=== PATIENT | male | born 1980 | race Asian ===

== ENCOUNTER 2016-04-10 09:06 | Emergency (ER) | payer OTHER ==
[~2016-04-10] VITALS: Ht 168.9 cm; Wt 71.6 kg
[~2016-04-10 09:06] MED LIST: ALBU1AER9 INH; LORA-741 PO
[2016-04-10 09:11] VITALS: BP 135/85; PULSE 97; TEMP 36.9; O2SAT 97; Ht 168.9 cm; Wt 71.6 kg
[2016-04-10] MEDS ORDERED: CIPROFLOXACIN HCL 0.3% OP SOLN 2.5 ML BTL OP STA (09:31)
--- NOTE | 2016-04-10 09:43 | EMERGENCY ROOM VISIT NOTE ---
History Report prepared by Robinsonibe: Renetta Tsyon Under the Supervision of: Dr. Roman Agudelo D.O. First contact with patient: 09:16 Chief Complaint: EYE PAIN Stated Complaint: L EYE SWELLING History of Present Illness The patient is a 35 year old male who presents to the Emergency Room with complaints of persistent left eyelid edema for the past few days. He denies any fevers, chills, erythema or changes in vision. He reports the eye is not painful , but this morning he woke up with matting of the eyelashes and a reddened bump on the lower eye lid, so he decided to come to the ED to be seen. He notes he has experienced similar edema in an upper eyelid about 1 year ago, but states the symptoms resolved on their own. Source of History: patient Onset: past few days Position: eye (left) Timing: other (persistent) Associated Symptoms: No chills, No fevers Review of Systems See HPI for pertinent positives & negatives. A limited number of systems were reviewed and were otherwise negative. Past Medical & Surgical Medical Problems: (1) No known problems Family History Diabetes mellitus Hypertension Social History Smoking Status: Never Smoker Alcohol Use: occasionally Drug Use: none Marital Status: single Housing Status: lives alone Occupation Status: employed Current/Historical Medications Scheduled Fluticasone Propionate (Nasal) (Flonase Allergy Relief), 2 SPRAY SCAR DAILY Multivitamin (Multivitamin), 1 TAB PO DAILY Vitamins C & E (Vitamin C), 1 CAP PO DAILY Scheduled PRN Albuterol Hfa (Ventolin Hfa), 2 PUFFS INH Q6H PRN for SOB/Wheezing Lorazepam (Ativan), 0.5 MG PO DAILY PRN for Anxiety Allergies Coded Allergies: Ibuprofen (Verified Allergy, Unknown, Hives, 04/10/16) Physical Exam Vital Signs Date Time Temp Pulse Resp B/P Pulse Ox O2 Delivery O2 Flow Rate FiO2 04/10/16 09:11 36.9 97 18 135/85 97 Room Air Physical Exam CONSTITUTIONAL/VITAL SIGNS: Reviewed / noted above. GENERAL: Non-toxic in appearance. INTEGUMENTARY: Warm, dry, and [place]. HEAD: Normocephalic. EYES: Left lower eyelid reveals a small pustule, on the inner lateral side of the lid, on mucosal surface. No obvious foreign bodies noted. ENT/OROPHARYNX: clear and moist. LYMPHADENOPATHY/NECK: Is supple without lymphadenopathy or meningismus. CARDIOVASCULAR: Regular rate and rhythm.. EXTREMITIES: Warm and well perfused. NEUROLOGICAL: Intact without focal deficits. PSYCHIATRIC: normal affect. MUSCULOSKELETAL: Normally developed with good muscle tone. Medical Decision & Procedures Medications Administered Medications (Trade) Dose Ordered Sig/Pratibha Route Start Time Stop Time Status Last Admin Dose Admin Ciprofloxacin HCl (Ciprofloxacin 0.3% Op Soln) 1 drops NOW STAT OP 04/10/16 09:31 04/10/16 09:34 DC 04/10/16 09:31 1 DROPS ED Course 0917: Previous medical records were reviewed. The patient was evaluated in room A4. A complete history and physical examination was performed. 0920: A small 27 gauge needle was used to puncture the pustule and purulent drainage was expressed onto a culture Q-Tip. Culture was sent for analysis. 0931: Ciprofloxacin HCl 1 drop OP. 0940: I reevaluated the patient. He is feeling well and resting comfortably. I discussed his results and discharge instructions and he verbalized complete understanding and agreement. Medical Decision Differential includes hordeolum, chalazion, foreign body, conjunctivitis. Physical 35-year-old male who presents to the ED with a chief complaint of a small amount of matting of the left eye this morning as well as noticing a pustule in the left inner surface of the lower lid. The patient denies any other significant symptoms. A 27-gauge needle was used to puncture the area and pus was drained from the area. This was sent for culture. The patient was started on Cipro ophthalmic. He is felt to be stable for discharge and outpatient follow-up if necessary. Impression Primary Impression: Hordeolum eyelid, internal Scribe Attestation The scribe's documentation has been prepared under my direction and personally reviewed by me in its entirety. I confirm that the note above accurately reflects all work, treatment, procedures, and medical decision making performed by me. Departure Information Dispostion Home / Self-Care Referrals Migue Moody M.D. (PCP) Patient Instructions ED Hordeolum, [facility] Additional Instructions Your symptoms are consistent with a internal hordeolum. Culture has been sent of the drainage. Cipro ophthalmic drops: Used to drops every 2-4 hours while awake. Ophthalmology follow-up with symptoms persist beyond 3-4 days.
[2016-04-10] MEDS ORDERED: VITACAP26 PO (09:50)
[2016-04-10] MEDS ORDERED: VNTHFA/IN INH (09:50)
[2016-04-10] MEDS ORDERED: FLUT0.15 NAE (09:50)
[2016-04-10] MEDS ORDERED: MULT-506 PO (09:50)
[2016-04-25] MEDS ORDERED: VNCS125 PO (10:58)
[2016-04-25] MEDS ORDERED: LCTX PO (10:58)
== END 2016-04-10 09:48 | disposition home or self-care (01) ==
LOC: C.EDB 09:07 → C.EDA 09:48
DX: H00.025 Hordeolum internum left lower eyelid (principal); Z83.3 Family history of diabetes mellitus; Z82.49 Family history of ischemic heart disease and other diseases of the circulatory system

== ENCOUNTER 2016-04-22 20:06 | Inpatient (IN) | payer OTHER ==
[~2016-04-22] VITALS: Ht 167.6 cm; Wt 73.5 kg
[~2016-04-22 20:06] MED LIST changes: -ALBU1AER9 INH; +FLUT0.15 NAE; +MULT-506 PO; +VITACAP26 PO; +VNTHFA/IN INH
[2016-04-22] MEDS ORDERED: SODIUM CHLORIDE 0.9% 1000ML 2,000 ML IV STA (20:23)
[2016-04-22] MEDS ORDERED: ONDANSETRON INJ 2 MG/ML 2 ML VIAL IV STA (20:23)
--- NOTE | 2016-04-22 20:36 | EMERGENCY ROOM VISIT NOTE ---
History Report prepared by Robinsonibmarie: Renetta Tyson Under the Supervision of: Dr. Elysia Arguello M.D. First contact with patient: 20:18 Chief Complaint: DIARRHEA Stated Complaint: DIAREHEA,NAUSEA,WEAKNESS History of Present Illness The patient is a 35 year old male who presents to the Emergency Room with complaints of persistent diarrhea since this morning. He states he has had "13 episodes" of diarrhea since this morning. He denies any melena, hematochezia or rectal bleeding. He has been nauseous but has not vomited. He complains of some abdominal pain, but thinks it's from his nausea. 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 He denies any dysuria or hematuria but states he has been urinating less frequently than usual and has only eaten a banana today. Source of History: patient Onset: this morning Position: abdomen Timing: other (persistent) Associated Symptoms: + abdominal pain, + nausea, No hematochezia, No melena , No urinary symptoms, No vomiting Review of Systems See HPI for pertinent positives & negatives. A total of 10 systems reviewed and were otherwise negative. Past Medical & Surgical Medical Problems: (1) Asthma, mild intermittent Family History Diabetes mellitus Hypertension Social History Smoking Status: Never Smoker Alcohol Use: occasionally Drug Use: none Marital Status: single Housing Status: lives alone Occupation Status: employed Current/Historical Medications Scheduled Fluticasone Propionate (Nasal) (Flonase Allergy Relief), 2 SPRAY SCAR DAILY Metronidazole (Flagyl), 500 MG PO TID Multivitamin (Multivitamin), 1 TAB PO DAILY Vitamins C & E (Vitamin C), 1 CAP PO DAILY Scheduled PRN Albuterol Hfa (Ventolin Hfa), 2 PUFFS INH Q6H PRN for SOB/Wheezing Lorazepam (Ativan), 0.5 MG PO DAILY PRN for Anxiety Allergies Coded Allergies: Ibuprofen (Verified Allergy, Unknown, Hives, 04/22/16) Physical Exam Vital Signs Date Time Temp Pulse Resp B/P Pulse Ox O2 Delivery O2 Flow Rate FiO2 04/23/16 00:20 106 18 134/79 95 Room Air 04/22/16 23:18 118 18 92/68 96 Room Air 04/22/16 21:18 109 18 127/76 99 Room Air 04/22/16 20:11 37.2 117 20 99 Room Air Physical Exam Vital signs reviewed. General: Well-appearing 35 year old male, in no significant distress. HEENT: No scleral icterus, PERRLA, neck supple. Atraumatic. Cardiovascular: Regular rate and rhythm, no extra sounds. Pulmonary: Clear to auscultation bilaterally, normal work of breathing. Abdomen: Soft, mild diffuse tenderness, no rebound or guarding, nondistended, positive bowel sounds. Musculoskeletal: Atraumatic, no peripheral edema. Neurologic: Patient awake alert and oriented x 3, full strength in all 4 extremities. Cranial nerves 2 through 12 grossly intact. Skin: Warm, dry, no rash Medical Decision & Procedures Laboratory Results Test 04/22/16 20:45 04/22/16 22:02 04/23/16 00:17 Total Bilirubin 0.7 mg/dl (0.2-1) Direct Bilirubin 0.2 mg/dl (0-0.2) Aspartate Amino Transf (AST/SGOT) 19 U/L (15-37) Alanine Aminotransferase (ALT/SGPT) 47 U/L (12-78) Alkaline Phosphatase 62 U/L (45-117) Total Protein 8.3 gm/dl (6.4-8.2) Lipase 99 U/L (73-393) Urine Color YELLOW Urine Appearance CLOUDY (CLEAR) Urine pH 5.0 (4.5-7.5) Urine Specific [place] 1.007 (1.000-1.030) Urine Protein NEG (NEG) Urine Glucose (UA) NEG (NEG) Urine Ketones NEG (NEG) Urine Occult Blood NEG (NEG) Urine Nitrite NEG (NEG) Urine Bilirubin NEG (NEG) Urine Urobilinogen NEG (NEG) Urine Leukocyte Esterase NEG (NEG) Urine WBC (Auto) 0 /hpf (0-5) Urine RBC (Auto) 0-4 /hpf (0-4) Urine Hyaline Casts (Auto) 0 /lpf (0-5) Urine Epithelial Cells (Auto) 0-5 /lpf (0-5) Urine Bacteria (Auto) NEG (NEG) Stool Occult Blood NEGATIVE (NEGATIVE) Troponin I < 0.015 ng/ml (0-0.045) Thyroid Stimulating Hormone (TSH) 0.253 uIu/ml (0.300-4.500) Free Thyroxine 0.97 ng/dl (0.80-1.60) Laboratory results per my review. Medications Administered Medications (Trade) Dose Ordered Sig/Pratibha Route Start Time Stop Time Status Last Admin Dose Admin Sodium Chloride (Nss 1000ml) 2,000 ml @ 999 mls/hr Q2H1M STAT IV 04/22/16 20:23 04/22/16 22:23 DC 04/22/16 20:47 999 MLS/HR Ondansetron HCl (Zofran Inj) 4 mg NOW STAT IV 04/22/16 20:23 04/22/16 20:26 DC 04/22/16 20:47 4 MG Metronidazole 500 mg 500 mg NOW STAT PO 04/22/16 23:14 04/22/16 23:15 DC 04/22/16 23:46 500 MG Sodium Chloride 1,000 ml @ 999 mls/hr Q1H1M STAT IV 04/22/16 23:38 04/23/16 00:38 DC 04/22/16 23:47 999 MLS/HR Calcium Gluconate/ Sodium Chloride (Calcium Gluconate 10%/Nss 50ml) 60 ml @ 240 mls/hr NOW STAT IV 04/22/16 23:41 04/22/16 23:55 DC 04/22/16 23:56 240 MLS/HR ED Course 2022: Past medical records reviewed. The patient was evaluated in room B12. A complete history and physical examination was performed. 2022: Zofran 4 mg IV, NSS 2000 ml @ 999 mls/hr IV. 0: I reevaluated the patient. He would like to wait for the results of his c- diff test. Medical Decision Differential diagnosis: Etiologies such as gastroenteritis, food borne illness, infections, appendicitis , diverticulitis, inflammatory bowel disease, obstruction, GI bleed, biliary pathology, as well as others were entertained. This patient was evaluated and appeared to be in some discomfort. IV access was obtained and laboratory work was drawn. The patient was placed on the computing services director and found to be in a normal sinus rhythm. The patient did have some hypotension. He was hydrated with normal saline solution. Stool sample was obtained and is significant for a positive C. difficile toxin. Patient was given Flagyl 500 mg orally. Patient's laboratory work is otherwise fairly unrevealing. On reevaluation, the patient was noted not feeling much improved. He will be evaluated by the hospitalist service for further management. He is aware of the plan and agrees. Impression Primary Impression: C. difficile diarrhea Scribe Attestation The scribe's documentation has been prepared under my direction and personally reviewed by me in its entirety. I confirm that the note above accurately reflects all work, treatment, procedures, and medical decision making performed by me. Departure Information Prescriptions Metronidazole (Flagyl) 500 Mg Tab 500 MG PO TID for 14 Days, #42 TAB Prov: Elysia Arguello M.D. 04/22/16 Referrals Migue Moody M.D. (PCP) Patient Instructions [facility]
[2016-04-22 21:07] LABS: COMPLETE YES; EOS % 0.3 %; HEMATOCRIT 42.4 % (42-52); IG% 0.3 %; LYMPH % 3.4 %; MEAN CELL VOLUME 87.6 fL (80-100); MEAN CORPUSCULAR HEMOGLOBIN 30.2 pg (25-34); MEAN CORPUSCULAR HGB CONC 34.4 g/dl (32-36); MEAN PLATELET VOLUME 9.9 fL (7.4-10.4); MONO % 4.5 %; NEUT % 91.5 %; PLATELET COUNT 213 K/uL (130-400); RED BLOOD COUNT 4.84 M/uL (4.7-6.1); WHITE BLOOD COUNT 11.63 K/uL (4.8-10.8)
[2016-04-22 21:24] LABS: BUN/CREATININE RATIO 14.4 (10-20); CALCIUM 8.4 mg/dl (8.5-10.1); CREATININE 0.93 mg/dl (0.60-1.40)
[2016-04-22 22:26] LABS: MANUAL MICROSCOPIC REQUIRED? NO; REVIEW REQ? NO; URINE COLOR YELLOW; ZZUR CULT IF INDIC CLEAN CATCH NO
[2016-04-22 22:27] LABS: URINE APPEARANCE CLOUDY (CLEAR); URINE BILIRUBIN NEG (NEG); URINE EPITHELIAL CELL AUTO 0-5 /lpf (0-5); URINE NITRITE NEG (NEG); URINE SPECIFIC GRAVITY 1.007 (1.000-1.030); UROBILINOGEN NEG (NEG)
[2016-04-22] MEDS ORDERED: METRONIDAZOLE 250 MG TAB PO STA ×2 (23:14→23:18)
[2016-04-22] MEDS ORDERED: METR-163 PO (23:17)
[2016-04-22] MEDS ORDERED: SODIUM CHLORIDE 0.9% 1000ML 1,000 ML IV STA (23:38)
[2016-04-22] MEDS ORDERED: CALCIUM GLUCONATE 10% 1,000 MG in SODIUM CHLORIDE 0.9% 50ML 50 ML IV STA (23:41)
[2016-04-23] MEDS ORDERED: ONDANSETRON INJ 2 MG/ML 2 ML VIAL IV PRN ×2 (00:15→01:00)
[2016-04-23] MEDS ORDERED: PROMETHAZINE HCL INJ 12.5 MG in SODIUM CHLORIDE 0.9% 50ML 50 ML IV PRN ×2 (00:15→01:00)
[2016-04-23] MEDS ORDERED: SODIUM CHLORIDE 0.9% 1000ML 1,000 ML IV SCH (00:45)
[2016-04-23 00:53] LABS: MAGNESIUM 1.4 mg/dl (1.8-2.4); THYROID STIMULATING HORMONE 0.253 uIu/ml (0.300-4.500)
[2016-04-23] MEDS ORDERED: SODIUM CHLORIDE 0.9% 1000ML 1,000 ML IV STA (00:58)
[2016-04-23] MEDS ORDERED: TRAMADOL HCL 50 MG TAB PO PRN (01:00)
[2016-04-23] MEDS ORDERED: LORAZEPAM 0.5 MG TAB PO PRN (01:00)
[2016-04-23] MEDS ORDERED: HYDROmorphone INJ 1 MG/ML SYR IV PRN (01:00)
[2016-04-23] MEDS ORDERED: ACETAMINOPHEN 325 MG TAB PO PRN (01:00)
[2016-04-23] MEDS ORDERED: LORAZEPAM 2 MG/ML 1 ML VIAL IV PRN (01:00)
[2016-04-23 01:40] VITALS: BP 119/75; PULSE 82; TEMP 37.5; O2SAT 99
[2016-04-23] MEDS ORDERED: LORAZEPAM INJ 0.5 MG in SYRINGE 0.75 ML IV PRN (02:15)
[2016-04-23] MEDS: SODIUM CHLORIDE 0.9% 1000ML 1,000 ML IV SCH ×2 (02:33→06:00)
[2016-04-23 02:48] VITALS: BP 119/75; PULSE 82; TEMP 37.5; O2SAT 99; Ht 167.6 cm; Wt 73.5 kg
[2016-04-23] MEDS: RASPBERRY SYRUP 5 ML UDP PO SCH ×4 (03:03→19:50)
[2016-04-23] MEDS: VANCOMYCIN HCL 125 MG/2.5ML SOLN PO SCH ×4 (03:03→19:50)
[2016-04-23] MEDS: MAGNESIUM SULFATE 1GM / D5W 1 GM in PREMIXED IN D5W 100 ML IV SCH ×2 (03:03→04:10)
--- NOTE | 2016-04-23 04:36 | HISTORY & PHYSICAL EXAMINATION ---
DATE OF ADMISSION: 04/23/2016 PRIMARY CARE PHYSICIAN: Dr. Moody CHIEF COMPLAINT: Diarrhea. HISTORY OF PRESENT ILLNESS: Medical history significant for asthma, hypertriglyceridemia as per records. One day history of crampy abdominal discomfort followed by watery non-bloody diarrhea more than 10 times, some nausea; no emesis, no fever, no chills. No recent antibiotics. Px admits to being lightheaded and clammy. Patient works at the hospital. Patient seen at the Emergency Room. T Given Flagyl for positive stool C. dif. MEDICAL HISTORY: As above. SURGERIES: None. HOME MEDICATIONS: Include albuterol, Ativan p.r.n., Flonase, multivitamins. ALLERGIES: IBUPROFEN. FAMILY HISTORY: Diabetes. 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 REVIEW OF SYSTEMS: As per HPI. all other ROS negative PHYSICAL EXAMINATION: VITAL SIGNS: Blood pressure was noted to be initially 157/76, later SBP 90s pulse rate 110 RR 18, temperature 37 O2 sats 99% on room air. GENERAL: Noted to be slightly uncomfortable, not in distress. SKIN: Normal color. HEENT: Bronson palpebral conjunctivae. Dry mucosa. NECK: Supple. CHEST: Clear to auscultation. HEART: Tachycardic. ABDOMEN: No tenderness, some distention. EXTREMITIES: No edema. no tenderness NEUROLOGIC: No gross focality. LABS: Hemoglobin 14.6, hematocrit 42.4, white cells 11.6, platelets 213. Sodium 130, potassium 4, chloride 100, CO2 21, anion gap was 14, BUN 30, creatinine 0.9, glucose 101. Lactic acid was 2.9. ASSESSMENT: 1. Clostridium difficile diarrhea severe on the basis of transient hypotension and lactic acidosis BP responsive to IV fluids 2. asthma, well controlled. PLAN: GMF PO Vancomycin course appropriate for severe C. dif IV fluids. Follow lactic acid. DVT prophylaxis, SCDs. Full code. MTDD
[2016-04-23 06:03] LABS: BASO % 0.1 %; BASO ABS # 0.01 K/uL (0-0.2); COMPLETE YES; EOS % 0.9 %; HEMATOCRIT 38.4 % (42-52); IG% 0.4 %; LYMPH % 9.1 %; LYMPH ABS # 0.72 K/uL (1.2-3.4); MEAN CELL VOLUME 87.9 fL (80-100); MEAN CORPUSCULAR HGB CONC 34.1 g/dl (32-36); MEAN PLATELET VOLUME 9.7 fL (7.4-10.4); MONO % 9.3 %; NEUT % 80.2 %; PLATELET COUNT 217 K/uL (130-400); RED BLOOD COUNT 4.37 M/uL (4.7-6.1); WHITE BLOOD COUNT 7.88 K/uL (4.8-10.8)
[2016-04-23 06:50] LABS: BUN/CREATININE RATIO 8.9 (10-20); CALCIUM 7.6 mg/dl (8.5-10.1); CREATININE 0.8 mg/dl (0.60-1.40); MAGNESIUM 2.6 mg/dl (1.8-2.4); POTASSIUM 3.8 mmol/L (3.5-5.1)
[2016-04-23] MEDS ORDERED: SODIUM CHLOR 0.45% + 20MEQ KCL 1,000 ML IV ONE (07:00)
[2016-04-23 07:18] VITALS: BP 103/68; PULSE 82; TEMP 36.9; O2SAT 97
[2016-04-23] MEDS ORDERED: SODIUM CHLORIDE 0.65% NA SOLN 45 ML (OCEAN) PRN (08:00)
[2016-04-23] MEDS ORDERED: METRONIDAZOLE 500 MG TAB PO SCH (08:00)
[2016-04-23] MEDS: FLUTICASONE PROPIONATE NA SPR 16 GM BTL NAE SCH (08:27)
[2016-04-23] MEDS: MULTIVITAMIN TAB PO SCH (08:28)
[2016-04-23] MEDS ORDERED: CALCIUM GLUCONATE 10% 1,000 MG in SODIUM CHLORIDE 0.9% 50ML 50 ML IV ONE (08:30)
[2016-04-23 15:48] VITALS: BP 108/74; PULSE 77; TEMP 36.7; O2SAT 97
[2016-04-23] MEDS: LACTOBACILLUS ACIDOPHILUS (FLORANEX) TAB PO SCH (17:49)
--- NOTE | 2016-04-23 19:32 | Progress Note ---
Internal Med Progress Note Date of Service: Apr 23, 2016. Provider Documentation: Diarrhea almost resolved.No abdominal pain or nausea. Afebrile. No sob.Tolerating clears. Advancing diet as tolerated.Continue po vancomycin. added Probiotic.Follow labs in am. Vital Signs: Date Time Temp Pulse Resp B/P Pulse Ox O2 Delivery O2 Flow Rate FiO2 04/23/16 17:41 Room Air 04/23/16 15:48 36.7 77 20 108/74 97 04/23/16 09:30 Room Air 04/23/16 07:18 36.9 82 18 103/68 97 Room Air 04/23/16 02:48 37.5 82 18 119/75 99 Room Air 04/23/16 01:40 37.5 82 18 119/75 99 Room Air 04/23/16 01:20 96 18 117/68 96 04/23/16 00:20 106 18 134/79 95 Room Air 04/22/16 23:18 118 18 92/68 96 Room Air 04/22/16 21:18 109 18 127/76 99 Room Air 04/22/16 20:11 37.2 117 20 99 Room Air Lab Results: Results Past 24 Hours Test 04/22/16 20:45 04/22/16 20:59 04/22/16 22:02 04/23/16 00:17 Range/Units Sodium Level 135 136-145 mmol/L Potassium Level 4.0 3.5-5.1 mmol/L Chloride Level 100 98-107 mmol/L Carbon Dioxide Level 21 21-32 mmol/L Anion Gap 14.0 3-11 mmol/L Blood Urea Nitrogen 13 7-18 mg/dl Creatinine 0.93 0.60-1.40 mg/dl Est Creatinine Clear Calc Drug Dose 100.0 ml/min Estimated GFR () 122.8 Estimated GFR (Non- 106.0 BUN/Creatinine Ratio 14.4 10-20 Random Glucose 101 70-99 mg/dl Calcium Level 8.4 8.5-10.1 mg/dl Total Bilirubin 0.7 0.2-1 mg/dl Direct Bilirubin 0.2 0-0.2 mg/dl Aspartate Amino Transf (AST/SGOT) 19 15-37 U/L Alanine Aminotransferase (ALT/SGPT) 47 12-78 U/L Alkaline Phosphatase 62 45-117 U/L Total Protein 8.3 6.4-8.2 gm/dl Albumin 4.4 3.4-5.0 gm/dl Lipase 99 73-393 U/L White Blood Count 11.63 4.8-10.8 K/uL Red Blood Count 4.84 4.7-6.1 M/uL Hemoglobin 14.6 14.0-18.0 g/dL Hematocrit 42.4 42-52 % Mean Corpuscular Volume 87.6 80-100 fL Mean Corpuscular Hemoglobin 30.2 25-34 pg Mean Corpuscular Hemoglobin Concent 34.4 32-36 g/dl Platelet Count 213 130-400 K/uL Mean Platelet Volume 9.9 7.4-10.4 fL Neutrophils (%) (Auto) 91.5 % Lymphocytes (%) (Auto) 3.4 % Monocytes (%) (Auto) 4.5 % Eosinophils (%) (Auto) 0.3 % Basophils (%) (Auto) 0.0 % Neutrophils # (Auto) 10.64 1.4-6.5 K/uL Lymphocytes # (Auto) 0.40 1.2-3.4 K/uL Monocytes # (Auto) 0.52 0.11-0.59 K/uL Eosinophils # (Auto) 0.04 0-0.5 K/uL Basophils # (Auto) 0.00 0-0.2 K/uL RDW Standard Deviation 41.8 36.4-46.3 fL RDW Coefficient of Variation 13.0 11.5-14.5 % Immature Granulocyte % (Auto) 0.3 % Immature Granulocyte # (Auto) 0.03 0.00-0.02 K/uL Urine Color YELLOW Urine Appearance CLOUDY CLEAR Urine pH 5.0 4.5-7.5 Urine Specific [place] 1.007 1.000-1.030 Urine Protein NEG NEG Urine Glucose (UA) NEG NEG Urine Ketones NEG NEG Urine Occult Blood NEG NEG Urine Nitrite NEG NEG Urine Bilirubin NEG NEG Urine Urobilinogen NEG NEG Urine Leukocyte Esterase NEG NEG Urine WBC (Auto) 0 0-5 /hpf Urine RBC (Auto) 0-4 0-4 /hpf Urine Hyaline Casts (Auto) 0 0-5 /lpf Urine Epithelial Cells (Auto) 0-5 0-5 /lpf Urine Bacteria (Auto) NEG NEG Stool Occult Blood NEGATIVE NEGATIVE Lactic Acid Level 2.9 0.4-2.0 mmol/L Magnesium Level 1.4 1.8-2.4 mg/dl Troponin I < 0.015 0-0.045 ng/ml Thyroid Stimulating Hormone (TSH) 0.253 0.300-4.500 uIu/ml Free Thyroxine 0.97 0.80-1.60 ng/dl Test 04/23/16 05:41 Range/Units White Blood Count 7.88 4.8-10.8 K/uL Red Blood Count 4.37 4.7-6.1 M/uL Hemoglobin 13.1 14.0-18.0 g/dL Hematocrit 38.4 42-52 % Mean Corpuscular Volume 87.9 80-100 fL Mean Corpuscular Hemoglobin 30.0 25-34 pg Mean Corpuscular Hemoglobin Concent 34.1 32-36 g/dl Platelet Count 217 130-400 K/uL Mean Platelet Volume 9.7 7.4-10.4 fL Neutrophils (%) (Auto) 80.2 % Lymphocytes (%) (Auto) 9.1 % Monocytes (%) (Auto) 9.3 % Eosinophils (%) (Auto) 0.9 % Basophils (%) (Auto) 0.1 % Neutrophils # (Auto) 6.32 1.4-6.5 K/uL Lymphocytes # (Auto) 0.72 1.2-3.4 K/uL Monocytes # (Auto) 0.73 0.11-0.59 K/uL Eosinophils # (Auto) 0.07 0-0.5 K/uL Basophils # (Auto) 0.01 0-0.2 K/uL RDW Standard Deviation 42.2 36.4-46.3 fL RDW Coefficient of Variation 13.2 11.5-14.5 % Immature Granulocyte % (Auto) 0.4 % Immature Granulocyte # (Auto) 0.03 0.00-0.02 K/uL Sodium Level 143 136-145 mmol/L Potassium Level 3.8 3.5-5.1 mmol/L Chloride Level 111 98-107 mmol/L Carbon Dioxide Level 22 21-32 mmol/L Anion Gap 10.0 3-11 mmol/L Blood Urea Nitrogen 7 7-18 mg/dl Creatinine 0.80 0.60-1.40 mg/dl Est Creatinine Clear Calc Drug Dose 116.2 ml/min Estimated GFR () 134.1 Estimated GFR (Non- 115.7 BUN/Creatinine Ratio 8.9 10-20 Random Glucose 115 70-99 mg/dl Lactic Acid Level 1.7 0.4-2.0 mmol/L Calcium Level 7.6 8.5-10.1 mg/dl Magnesium Level 2.6 1.8-2.4 mg/dl Albumin 3.2 3.4-5.0 gm/dl Total Triiodothyronine 0.64 0.60-1.81 ng/ml Microbiology Results 04/22/16 Shiga Toxin Test - Preliminary, Resulted 04/22/16 Stool Culture - Preliminary, Resulted NO SALMONELLA ISOLATED TO DATE,... 04/22/16 C.difficile Toxin B Gene (PCR) - Final, Complete Positive for C. difficile toxin B gene
[2016-04-24 00:37] VITALS: BP 111/74; PULSE 74; TEMP 37; O2SAT 97
[2016-04-24] MEDS: RASPBERRY SYRUP 5 ML UDP PO SCH ×4 (02:05→19:52)
[2016-04-24] MEDS: VANCOMYCIN HCL 125 MG/2.5ML SOLN PO SCH ×4 (02:05→19:52)
[2016-04-24 07:35] VITALS: O2SAT 98
[2016-04-24 07:36] VITALS: BP 104/68; PULSE 63; TEMP 36.7; O2SAT 98
[2016-04-24] MEDS: FLUTICASONE PROPIONATE NA SPR 16 GM BTL NAE SCH (08:00)
[2016-04-24] MEDS: LACTOBACILLUS ACIDOPHILUS (FLORANEX) TAB PO SCH ×3 (08:23→15:48)
[2016-04-24] MEDS: MULTIVITAMIN TAB PO SCH (08:23)
[2016-04-24 11:58] LABS: BASO % 0.2 %; BASO ABS # 0.01 K/uL (0-0.2); COMPLETE YES; EOS % 6.2 %; HEMATOCRIT 42.2 % (42-52); IG% 0.6 %; LYMPH % 25.8 %; LYMPH ABS # 1.37 K/uL (1.2-3.4); MEAN CELL VOLUME 88.3 fL (80-100); MEAN CORPUSCULAR HEMOGLOBIN 30.3 pg (25-34); MEAN CORPUSCULAR HGB CONC 34.4 g/dl (32-36); MEAN PLATELET VOLUME 9.8 fL (7.4-10.4); MONO % 16.2 %; PLATELET COUNT 237 K/uL (130-400); RED BLOOD COUNT 4.78 M/uL (4.7-6.1); WHITE BLOOD COUNT 5.32 K/uL (4.8-10.8)
[2016-04-24 12:25] LABS: BUN/CREATININE RATIO 13.8 (10-20); CALCIUM 8.8 mg/dl (8.5-10.1); CREATININE 0.79 mg/dl (0.60-1.40); MAGNESIUM 2.2 mg/dl (1.8-2.4); PHOSPHORUS 1.9 mg/dl (2.5-4.9); POTASSIUM 3.5 mmol/L (3.5-5.1)
[2016-04-24] MEDS ORDERED: POTASSIUM PHOS 3 MMOL/1 ML INFUSION IV STA (14:58)
--- NOTE | 2016-04-24 15:04 | Progress Note ---
Internal Med Progress Note Date of Service: Apr 24, 2016. Provider Documentation: SUBJECTIVE: The patient was seen and examined Feels a lot better today Diarrhea is not yet controlled OBJECTIVE: Vital Signs-as noted below Exam: General-No acute distress at rest Eyes-Normal ENT-normal Neck-supple Lungs-Clear to ausucltate bilaterally Heart-Regular Abdomen-Benign,no masses,bowel sound present Extremities-NO edema Neuro-AAOx3 Lab data as noted below. ASSESSMENT & PLAN: Clostridium difficile diarrhea Severe on the basis of transient hypotension and lactic acidosis BP responsive to IV fluids Has been on Vancomycin Clinically better Likely to be discharged tomorrow Hypophosphatemia Will replace and recheck Asthma, well controlled. Continue PRN medications DVT prophylaxis, SCDs. Full code. DISPOSITION Likely discharge tomorrow Vital Signs: Date Time Temp Pulse Resp B/P Pulse Ox O2 Delivery O2 Flow Rate FiO2 04/24/16 07:36 36.7 63 16 104/68 98 Room Air 04/24/16 07:35 98 Room Air 04/24/16 00:37 37.0 74 18 111/74 97 Room Air 04/23/16 23:59 Room Air 04/23/16 20:00 Room Air 04/23/16 17:41 Room Air 04/23/16 15:48 36.7 77 20 108/74 97 Lab Results: Results Past 24 Hours Test 04/24/16 11:46 Range/Units White Blood Count 5.32 4.8-10.8 K/uL Red Blood Count 4.78 4.7-6.1 M/uL Hemoglobin 14.5 14.0-18.0 g/dL Hematocrit 42.2 42-52 % Mean Corpuscular Volume 88.3 80-100 fL Mean Corpuscular Hemoglobin 30.3 25-34 pg Mean Corpuscular Hemoglobin Concent 34.4 32-36 g/dl Platelet Count 237 130-400 K/uL Mean Platelet Volume 9.8 7.4-10.4 fL Neutrophils (%) (Auto) 51.0 % Lymphocytes (%) (Auto) 25.8 % Monocytes (%) (Auto) 16.2 % Eosinophils (%) (Auto) 6.2 % Basophils (%) (Auto) 0.2 % Neutrophils # (Auto) 2.72 1.4-6.5 K/uL Lymphocytes # (Auto) 1.37 1.2-3.4 K/uL Monocytes # (Auto) 0.86 0.11-0.59 K/uL Eosinophils # (Auto) 0.33 0-0.5 K/uL Basophils # (Auto) 0.01 0-0.2 K/uL RDW Standard Deviation 43.0 36.4-46.3 fL RDW Coefficient of Variation 13.2 11.5-14.5 % Immature Granulocyte % (Auto) 0.6 % Immature Granulocyte # (Auto) 0.03 0.00-0.02 K/uL Sodium Level 141 136-145 mmol/L Potassium Level 3.5 3.5-5.1 mmol/L Chloride Level 107 98-107 mmol/L Carbon Dioxide Level 25 21-32 mmol/L Anion Gap 9.0 3-11 mmol/L Blood Urea Nitrogen 11 7-18 mg/dl Creatinine 0.79 0.60-1.40 mg/dl Est Creatinine Clear Calc Drug Dose 117.7 ml/min Estimated GFR () 134.8 Estimated GFR (Non- 116.3 BUN/Creatinine Ratio 13.8 10-20 Random Glucose 117 70-99 mg/dl Calcium Level 8.8 8.5-10.1 mg/dl Phosphorus Level 1.9 2.5-4.9 mg/dl Magnesium Level 2.2 1.8-2.4 mg/dl
[2016-04-24 15:37] VITALS: BP 112/75; PULSE 65; TEMP 36.6; O2SAT 100
[2016-04-24] MEDS ORDERED: POTASSIUM PHOSPHATE INJ 24 MMOL in SODIUM CHLORIDE 0.9% 500ML 500 ML IV SCH (16:00)
[2016-04-24 23:56] VITALS: BP 102/67; PULSE 57; TEMP 36.4; O2SAT 97
[2016-04-25] MEDS: RASPBERRY SYRUP 5 ML UDP PO SCH ×2 (01:55→08:14)
[2016-04-25] MEDS: VANCOMYCIN HCL 125 MG/2.5ML SOLN PO SCH ×2 (01:55→08:14)
[2016-04-25 07:49] VITALS: BP 98/60; PULSE 60; TEMP 36.5; O2SAT 97
[2016-04-25] MEDS: MULTIVITAMIN TAB PO SCH (08:15)
[2016-04-25] MEDS: LACTOBACILLUS ACIDOPHILUS (FLORANEX) TAB PO SCH (08:15)
[2016-04-25] MEDS: FLUTICASONE PROPIONATE NA SPR 16 GM BTL NAE SCH (08:17)
[2016-04-25 08:30] VITALS: O2SAT 97
[2016-04-25 10:35] LABS: CREATININE 0.9 mg/dl (0.60-1.40)
[2016-04-25 10:36] LABS: BUN/CREATININE RATIO 12.8 (10-20); PHOSPHORUS 3.6 mg/dl (2.5-4.9); POTASSIUM 3.7 mmol/L (3.5-5.1)
--- NOTE | 2016-04-25 10:46 | Progress Note ---
Internal Med Progress Note Date of Service: Apr 25, 2016. Provider Documentation: SUBJECTIVE: The patient was seen and examined Feels a lot better today Diarrhea is controlled Will discharge today OBJECTIVE: Vital Signs-as noted below Exam: General-No acute distress at rest Eyes-Normal ENT-normal Neck-supple Lungs-Clear to ausucltate bilaterally Heart-Regular Abdomen-Benign,no masses,bowel sound present Extremities-NO edema Neuro-AAOx3 Lab data as noted below. ASSESSMENT & PLAN: Clostridium difficile diarrhea Severe on the basis of transient hypotension and lactic acidosis BP responsive to IV fluids Has been on Vancomycin Clinically better Discharge on Vancomycin for a total of 14 days Hypophosphatemia Will replace and recheck-normalized Asthma, well controlled. Continue PRN medications DVT prophylaxis, SCDs. Full code. DISPOSITION Discharge today Vital Signs: Date Time Temp Pulse Resp B/P Pulse Ox O2 Delivery O2 Flow Rate FiO2 04/25/16 08:30 97 Room Air 04/25/16 07:49 36.5 60 16 98/60 97 Room Air 04/25/16 00:00 Room Air 04/24/16 23:56 36.4 57 18 102/67 97 Room Air 04/24/16 20:00 Room Air 04/24/16 16:26 Room Air 04/24/16 15:37 36.6 65 16 112/75 100 Room Air Lab Results: Results Past 24 Hours Test 04/24/16 11:46 04/25/16 09:50 Range/Units White Blood Count 5.32 4.8-10.8 K/uL Red Blood Count 4.78 4.7-6.1 M/uL Hemoglobin 14.5 14.0-18.0 g/dL Hematocrit 42.2 42-52 % Mean Corpuscular Volume 88.3 80-100 fL Mean Corpuscular Hemoglobin 30.3 25-34 pg Mean Corpuscular Hemoglobin Concent 34.4 32-36 g/dl Platelet Count 237 130-400 K/uL Mean Platelet Volume 9.8 7.4-10.4 fL Neutrophils (%) (Auto) 51.0 % Lymphocytes (%) (Auto) 25.8 % Monocytes (%) (Auto) 16.2 % Eosinophils (%) (Auto) 6.2 % Basophils (%) (Auto) 0.2 % Neutrophils # (Auto) 2.72 1.4-6.5 K/uL Lymphocytes # (Auto) 1.37 1.2-3.4 K/uL Monocytes # (Auto) 0.86 0.11-0.59 K/uL Eosinophils # (Auto) 0.33 0-0.5 K/uL Basophils # (Auto) 0.01 0-0.2 K/uL RDW Standard Deviation 43.0 36.4-46.3 fL RDW Coefficient of Variation 13.2 11.5-14.5 % Immature Granulocyte % (Auto) 0.6 % Immature Granulocyte # (Auto) 0.03 0.00-0.02 K/uL Sodium Level 141 139 136-145 mmol/L Potassium Level 3.5 3.7 3.5-5.1 mmol/L Chloride Level 107 105 98-107 mmol/L Carbon Dioxide Level 25 23 21-32 mmol/L Anion Gap 9.0 11.0 3-11 mmol/L Blood Urea Nitrogen 11 12 7-18 mg/dl Creatinine 0.79 0.90 0.60-1.40 mg/dl Est Creatinine Clear Calc Drug Dose 117.7 103.3 ml/min Estimated GFR () 134.8 127.8 Estimated GFR (Non- 116.3 110.3 BUN/Creatinine Ratio 13.8 12.8 10-20 Random Glucose 117 132 70-99 mg/dl Calcium Level 8.8 9.0 8.5-10.1 mg/dl Phosphorus Level 1.9 3.6 2.5-4.9 mg/dl Magnesium Level 2.2 2.0 1.8-2.4 mg/dl
[2016-04-25] MEDS ORDERED: VNCS125 PO (10:58)
[2016-04-25] MEDS ORDERED: LCTX PO (10:58)
--- NOTE | 2016-04-25 11:04 | Discharge Instructions ---
Discharge Instructions Admission Reason for Admission: Diarehea, Hypotension Discharge Discharge Diagnosis / Problem: C Diff Colitis Discharge Goals Goal(s): Prevent Disease Progression Activity Recommendations Activity Limitations: resume your previous activity . Instructions / Follow-Up Instructions / Follow-Up Dr Yates's office will call with appointment within 1 week Current Hospital Diet Patient's current hospital diet: Regular Diet Discharge Diet Recommended Diet: Regular Diet Pending Studies Studies pending at discharge: no Medical Emergencies . Who to Call and When: Medical Emergencies: If at any time you feel your situation is an emergency, please call 911 immediately. . Non-Emergent Contact Non-Emergency issues call your: Primary Care Provider . Past History Medical & Surgical History: (1) Asthma, mild intermittent (2) C. difficile colitis . "Provider Documentation" section prepared by Adrianne Joseph. VTE Core Measure Inpt VTE Proph given/why not?: SCD's
[2016-04-25 11:21] VITALS: BP 98/60; PULSE 60; TEMP 36.5; O2SAT 97
--- NOTE | 2016-04-26 08:05 | Discharge Summary ---
Discharge Summary Admission Date: Apr 23, 2016 at 00:42 Discharge Date: Apr 25, 2016 Discharge Disposition: Home Principal Diagnosis: C Diff Colitis Secondary Diagnoses/Problems: Please see H&P Medication Reconciliation New Medications: Lactobacillus Acidophilus (Lactinex) Tab 2 TAB PO BID for 12 Days, TAB Vancomycin HCl (Vancomycin HCl) 125 Mg/2.5 Ml Susp 125 MG PO Q6H for 12 Days, #48 Continued Medications: Albuterol Hfa (Ventolin Hfa) 200 Puffs/12275 Mcg Aers 2 PUFFS INH Q6H PRN for SOB/Wheezing, #1 INHALER Fluticasone Propionate (Nasal) (Flonase Allergy Relief) 50 Mcg/Act Spr 2 SPRAY SCAR DAILY Lorazepam (Ativan) 0.5 Mg Tab 0.5 MG PO DAILY PRN for Anxiety, TAB Multivitamin (Multivitamin) Tab 1 TAB PO DAILY, TAB Vitamins C & E (Vitamin C) 1 Cap Cap 1 CAP PO DAILY Discontinued Medications: Metronidazole (Flagyl) 500 Mg Tab 500 MG PO TID for 14 Days, #42 TAB Admission Information HPI (per Admitting provider): DATE OF ADMISSION: 04/23/2016 PRIMARY CARE PHYSICIAN: Dr. Moody CHIEF COMPLAINT: Diarrhea. HISTORY OF PRESENT ILLNESS: Medical history significant for asthma, hypertriglyceridemia as per records. One day history of crampy abdominal discomfort followed by watery non-bloody diarrhea more than 10 times, some nausea; no emesis, no fever, no chills. No recent antibiotics. Px admits to being lightheaded and clammy. Patient works at the hospital. Patient seen at the Emergency Room. T Given Flagyl for positive stool C. dif. MEDICAL HISTORY: As above. SURGERIES: None. HOME MEDICATIONS: Include albuterol, Ativan p.r.n., Flonase, multivitamins. ALLERGIES: IBUPROFEN. FAMILY HISTORY: Diabetes. 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 REVIEW OF SYSTEMS: As per HPI. all other ROS negative PHYSICAL EXAMINATION: VITAL SIGNS: Blood pressure was noted to be initially 157/76, later SBP 90s pulse rate 110 RR 18, temperature 37 O2 sats 99% on room air. GENERAL: Noted to be slightly uncomfortable, not in distress. SKIN: Normal color. HEENT: Cable palpebral conjunctivae. Dry mucosa. NECK: Supple. CHEST: Clear to auscultation. HEART: Tachycardic. ABDOMEN: No tenderness, some distention. EXTREMITIES: No edema. no tenderness NEUROLOGIC: No gross focality. LABS: Hemoglobin 14.6, hematocrit 42.4, white cells 11.6, platelets 213. Sodium 130, potassium 4, chloride 100, CO2 21, anion gap was 14, BUN 30, creatinine 0.9, glucose 101. Lactic acid was 2.9. ASSESSMENT: 1. Clostridium difficile diarrhea severe on the basis of transient hypotension and lactic acidosis BP responsive to IV fluids 2. asthma, well controlled. PLAN: GMF PO Vancomycin course appropriate for severe C. dif IV fluids. Follow lactic acid. DVT prophylaxis, SCDs. Full code. Hospital Course Clostridium difficile diarrhea Severe on the basis of transient hypotension and lactic acidosis BP responsive to IV fluids Has been on Vancomycin Clinically better Discharge on Vancomycin for a total of 14 days Hypophosphatemia Will replace and recheck-normalized Asthma, well controlled. Continue PRN medications DVT prophylaxis, SCDs. Full code. DISPOSITION Discharge today Total time spent on discharge = 35 minutes This includes examination of the patient, discharge planning, medication reconciliation, and communication with other providers. Discharge Instructions Admission Reason for Admission: Diarehea, Hypotension Discharge Discharge Diagnosis / Problem: C Diff Colitis Discharge Goals Goal(s): Prevent Disease Progression Activity Recommendations Activity Limitations: resume your previous activity . Instructions / Follow-Up Instructions / Follow-Up Dr Yates's office will call with appointment within 1 week Current Hospital Diet Patient's current hospital diet: Regular Diet Discharge Diet Recommended Diet: Regular Diet Pending Studies Studies pending at discharge: no Medical Emergencies . Who to Call and When: Medical Emergencies: If at any time you feel your situation is an emergency, please call 911 immediately. . Non-Emergent Contact Non-Emergency issues call your: Primary Care Provider . Past History Medical & Surgical History: (1) Asthma, mild intermittent (2) C. difficile colitis . "Provider Documentation" section prepared by Adrianne Joseph. VTE Core Measure Inpt VTE Proph given/why not?: SCD's <Electronically signed by Adrianne Joseph M.D.> Additional Copies To Migue Moody M.D.
== END 2016-04-25 12:30 | disposition home or self-care (01) | DRG 372 ==
LOC: ENRESERVDT → ENRESERVTM → C.EDB 20:08 → UNDOADMIN 04-23 00:42 → C.4E 04-23 00:42
PROVIDERS: ADMIT Internal Medicine; ATTEND Internal Medicine
DX: A04.7 Enterocolitis due to Clostridium difficile (principal); E87.2 Acidosis; J45.909 Unspecified asthma, uncomplicated; I95.9 Hypotension, unspecified; E83.39 Other disorders of phosphorus metabolism; Z79.899 Other long term (current) drug therapy

== ENCOUNTER → 2016-05-23 | Outpatient (CLI) | payer OTHER ==
[~2016-05-23] MED LIST changes: +VNCS125 PO
--- NOTE | 2016-05-23 09:36 | DIAGNOSTIC IMAGING REPORT ---
LEFT FOOT MIN 3 VIEWS ROUTINE CLINICAL HISTORY: LEFT TOE FRACTURE trauma. Pain. COMPARISON: None. DISCUSSION: Mild degenerative change of the distal interphalangeal joints of the toes. Mild soft tissue edema overlying the distal phalanx as well as middle phalanx left fourth toe. No evidence for acute bony abnormality. IMPRESSION: Mild soft tissue edema. Minimal degenerative change. No acute process. Electronically signed by: Keny Guajardo M.D. 05/23/2016 9:34 AM Dictated Date/Time: 05/23/2016 9:33 AM
== END | disposition home or self-care (01) ==
LOC: C.RAD 09:05
PROVIDERS: ATTEND Internal Medicine
DX: S99.929A Unspecified injury of unspecified foot, initial encounter (principal); X58.XXXA Exposure to other specified factors, initial encounter

== ENCOUNTER 2020-06-26 18:37 | Inpatient (IN) ==
[2020-06-26 20:30] LABS: Basophils # (auto) 0.02 K/uL (0-0.2); Basophils % (auto) 0.2 %; Eosinophils # (auto) 0.12 K/uL (0-0.5); Hemoglobin 15.6 g/dL (14.0-18.0); Immature Granulocytes # (auto) 0.05 K/uL (0.00-0.02); Immature Granulocytes % (auto) 0.4 %; Lymphocytes # (auto) 2.21 K/uL (1.2-3.4); Lymphocytes % (auto) 17.7 %; Mean Corpuscular Hemoglobin 30.5 pg (25-34); Mean Corpuscular Hgb Conc 35.5 g/dL (32-36); Mean Corpuscular Volume 85.9 fL (80-100); Mean Platelet Volume 9.7 fL (7.4-10.4); Monocytes # (auto) 0.72 K/uL (0.11-0.59); Monocytes % (auto) 5.8 %; Neutrophils # (auto) 9.35 K/uL (1.4-6.5); Neutrophils % (auto) 74.9 %; Platelet Count 262 K/uL (130-400); RDW Standard Deviation 41.1 fL (36.4-46.3); Red Blood Count 5.12 M/uL (4.7-6.1); White Blood Count 12.47 K/uL (4.8-10.8)
[2020-06-26 20:44] LABS: D Dimer 410 ug/L FEU (0-500); Partial Thromboplastin Time 25.3 Seconds (21.0-31.0)
[2020-06-26 20:48] LABS: Alanine Aminotransferase 45 U/L (12-78); Albumin Level 3.9 gm/dl (3.4-5.0); Aspartate Aminotransferase 11 U/L (15-37); BUN Creatinine Ratio 14.1 (10-20); Blood Urea Nitrogen 13 mg/dl (7-18); Calcium 8.9 mg/dl (8.5-10.1); Carbon Dioxide 21 mmol/L (21-32); Chloride 105 mmol/L (98-107); Creatinine Clr Calc Pharmacy 94.2 ml/min; Est GFR (African American) 116.4; Est GFR (Non-African American) 100.4; Glucose 133 mg/dl (70-99); Potassium 3.4 mmol/L (3.5-5.1); Sodium 136 mmol/L (136-145)
[2020-06-26 20:51] LABS: Albumin Globulin Ratio 0.9 (0.9-2); Alkaline Phosphatase 72 U/L (45-117); Bilirubin,Total 0.4 mg/dl (0.2-1); Globulin 4.3 gm/dl (2.5-4.0); Total Protein 8.2 gm/dl (6.4-8.2)
[2020-06-26] MEDS ORDERED: POTASSIUM CHLORIDE CRTAB 20 MEQ TABCR PO STA (21:04)
--- NOTE | 2020-06-26 21:09 | XRay Report ---
XR chest 1V portable CLINICAL HISTORY: sob, cough COMPARISON STUDY: Chest radiograph and chest CT June 24, 2020. FINDINGS: Lung volumes are normal. Lungs are clear. There is no pneumothorax or pleural effusion. Car diac size is normal. Mediastinal contours are normal. There is no evidence for pulmonary edema. IMPRESSION: No acute cardiopulmonary findings. ACT 112: Negative or not required by law. Electronically signed by: Heriberto Sung M.D. 06/26/2020 9:08 PM
[2020-06-26 21:40] LABS: Influenza A virus by PCR Negative (Neg); Influenza B virus by PCR Negative (Neg); RSV by PCR Negative (Neg); SARS CoV2 RNA(COVID-19) InHosp NEGATIVE (Negative)
[2020-06-26 22:15] LABS: Troponin I < 0.015 ng/ml (0-0.045)
[2020-06-26] MEDS ORDERED: POTASSIUM CHLORIDE 40 MEQ in SODIUM CHLORIDE 0.9% 1000ML 1,000 ML IV STA (23:06)
[2020-06-26 23:26] LABS: Magnesium 2.1 mg/dl (1.8-2.4); Thyroid Stimulating Hormone 0.615 uIu/ml (0.300-4.500)
[2020-06-27] MEDS ORDERED: POLYETHYLENE (MIRALAX) 17 GM PACK PO PRN (00:18)
[2020-06-27] MEDS ORDERED: LORazepam 0.5 MG TAB PO PRN ×2 (00:18)
[2020-06-27] MEDS ORDERED: ONDANSETRON INJ 2 MG/ML 2 ML VIAL IV PRN (00:18)
[2020-06-27] MEDS ORDERED: ACETAMINOPHEN 325 MG TAB PO PRN (00:18)
[2020-06-27] MEDS ORDERED: NITROGLYCERIN SL 0.4 MG/TAB TAB SL PRN (00:18)
[2020-06-27] MEDS ORDERED: ALBUTEROL HFA 8 GM INHALER INH PRN (00:18)
[2020-06-27] MEDS: SODIUM CHLORIDE 0.9% 1000ML 1,000 ML IV SCH ×2 (01:02→11:07)
[2020-06-27] MEDS ORDERED: NON-FORMULARY MEDICATION SCH (01:15)
[2020-06-27 01:17] LABS: Prothrombin Time 10.3 Seconds (9.0-12.0)
--- NOTE | 2020-06-27 01:49 | History and Physical Report ---
DATE OF ADMISSION: 06/26/2020 CHIEF COMPLAINT: Weakness, fatigue. HISTORY OF PRESENT ILLNESS: This is a 39-year-old male with past medical history significant for hypertriglyceridemia; prediabetes; asthma, mild persistent; vitamin D deficiency; history of PPD positive, status post treatment, who presents with severe fatigue and weakness. The patient was in the ER in April of this year with abdominal discomfort. He has a history of C. diff in the past. At that time, CAT scan of the abdomen and pelvis was done which was unremarkable except for hepatic steatosis, small fat-containing right side Morgagni hernia. At that time, his LFTs and other labs were unremarkable and he was discharged. The patient again on 06/11/2020 complained of dizziness and shortness of breath. COVID was negative. The patient received COVID vaccine and finished a second dose in March. The patient has history of asthma and was thought it could be his asthma exacerbation. At that time in the ER, EKG and troponins were unremarkable and [facility] science instructor [employer] operations consultant did a stress echo, which was also unremarkable and they thought it could be his asthma, so he was started on a course of steroids and got discharged. He was evaluated by pulmonary on 06/12/2020. It was thought his symptoms were due to poorly controlled asthma. He was placed on Breo Ellipta, Singulair and prednisone 40 mg for 5 days and then taper down to 20 mg and 10 mg in 3 days. The patient did not tolerate prednisone in the past,feels anxious, so he was given Ativan p.r.n. The patient says his asthma acts up in the cold weather. The patient says with high dose prednisone he was feeling very anxious, he was not feeling well at home, and also he stopped Singulair because thought it could be contributing to the symptoms and he changed Breo Ellipta to Flovent. Again after stopping the prednisone, he was still not feeling good, again having intermittent shortness of breath, so he came back to the ER on 06/24/2020. COVID test was again negative. At this time, CT of the chest was also done without contrast which was unremarkable. Again seen by cardiology in the ER. Again D-dimer screen was negative. Cardiology thought it is mostly not cardiac and it was reasonable to discharge him home and follow with pulmonary and if chest pain recurs plan for coronary CT and was discharged from the ER.Yesterday he was feeling better, so he came to work today. Later in the day today, he was feeling extremely exhausted, feeling fatigued and weakness, could not function properly. So at that time, it was decided to admit the patient and monitor in the hospital. The patient's blood pressure is fluctuating on and off, but on a recent stress echo test, there was no hypertensive response on the stress test, but he could only run for 4 minutes on the Venkatesh protocol whereas he did for 10 minutes in 2016. Declined exercise tolerance. The patient states before the pandemic he used to go to [employer], do half hour electrical and half hour weights, and also after the pandemic used to walk, but since the winter because he could not go outside because of his asthma, starting January he did not do any exercise. Currently resting comfortably and hemodynamically stable. Denies any chest pain, resting no shortness of breath. Has some dry cough. No headache, no blurred visions, no sore throat, no nausea, no abdominal pain. Appetite is somewhat down. Normal bowel and bladder movements. No rash seen. ALLERGIES: SHELLFISH AND IBUPROFEN. PAST MEDICAL HISTORY: As mentioned above. PAST SURGICAL HISTORY: None. MEDICATIONS: Currently on albuterol 2 puffs inhalation t.i.d. p.r.n., famotidine 20 mg p.o. at bedtime, Flovent 110 two puffs inhalation b.i.d., Ativan 0.5 mg p.o. daily p.r.n., multivitamin 1 tablet p.o. daily, Protonix 20 mg p.o. daily. FAMILY HISTORY: Significant for mother has hypertension, father has diabetes. SOCIAL HISTORY: No smoking, alcohol very rarely. No drug use. REVIEW OF SYSTEMS: As per HPI. Rest of the review of systems negative. PHYSICAL EXAMINATION: GENERAL: The patient is of moderate build, not in acute distress. VITAL SIGNS: Temperature 36.7, pulse 88, respiratory rate 19, blood pressure 129/82, oxygen 99% on room air. Temperature afebrile, pulse 94, respiratory rate 15, blood pressure 140/94, oxygen 97% on room air. HEENT: No pallor, no icterus. Pupils equal, round, and reactive to light. Oral mucosa moist. NECK: No JVD, no neck masses. CARDIOVASCULAR: S1, S2 heard. Regular rate and rhythm, no murmur, no gallop. RESPIRATORY SYSTEM: Normal AP diameter. No accessory muscle use. No wheezing, no crackles. ABDOMEN: Soft, bowel sounds present, nontender. No distention. CENTRAL NERVOUS SYSTEM: Cranial nerves II-XII grossly intact. Nonfocal. Coordination of movements normal. Power 5/5 in all extremities. Sensation is intact. EXTREMITIES: No edema, no erythema. LABORATORY DATA: Labs currently is showing WBC of 12.4, hemoglobin 15.6, hematocrit 44, platelets 262. D-dimer 410. Sodium 136, potassium 3.4, chloride 105, bicarbonate 21, BUN 13, creatinine 0.9, serum glucose 133, calcium 8.9, total bilirubin 0.4, AST 11, ALT 45, alkaline phosphatase 72. ASSESSMENT AND PLAN: This is a 39-year-old male who presents with ongoing weakness and fatigue. 1. Ongoing weakness and fatigue: The patient is not feeling well since April, initially with abdominal discomfort, then since 06/11/2020, he is having shortness of breath and dizziness. He was in the ER on 06/11/2020. At that time, he was seen by cardiology and had a stress echo which was unremarkable. On 06/12/2020, he was seen by pulmonary and adjusted his asthma medications and given a course of prednisone, which was not tolerated well by the patient. Then again he was in the ER on 06/24/2020. At that time, workup was also negative and unremarkable except sodium of 130, seen by cardiology and thought noncardiac and discharged home to follow with pulmonary and if the patient gets again chest again, plan was to repeat coronary CAT scan. The patient was feeling better yesterday. 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 Etiology unclear. At this time, we will repeat his labs and check a second D-dimer. Repeat COVID testing. We will check TSH levels, a.m. cortisol levels, as the patient is currently on steroids. The patient was checked for Lyme screen. We will also check for ESR and CRP. Follow his troponins, EKG, and chest x-rays and closely monitor in the med tele. His symptoms also could be from recent use of steroids and meds. Will start on fluids and monitor in med/tele. 2. Hypertension: Could be situational, could be chronic. The patient is having on and off elevated blood pressure, it could be from the recent steroids. The patient has no hypertensive response on the stress echo, though he only ran for 4 minutes, but there was mild concentric LVH. With his prediabetes, he may benefit from CALIXTO inhibitors or ARBs, but we will monitor the blood pressure in the hospital. Diastolics may seem to be a little higher, could be contributing to his fatigue. 3. Prediabetes: Diabetic diet. Will follow hemoglobin A1c level in a.m. 4. Asthma: Currently does not seem to be in exacerbation. Will continue his home Flovent and albuterol p.r.n. and we will place him on nebs p.r.n. 5. Gastroesophageal reflux disease: Continue his Protonix and famotidine. 6. Deep venous thrombosis prophylaxis: Sequential compression devices. DISPOSITION: Closely monitor in the med tele. Level 1 full code. Expect to discharge home and follow with family doctor. ROSEY
[2020-06-27 06:34] LABS: Basophils # (auto) 0.04 K/uL (0-0.2); Basophils % (auto) 0.4 %; Eosinophils # (auto) 0.24 K/uL (0-0.5); Eosinophils % (auto) 2.6 %; Hematocrit (blood only) 40.2 % (42-52); Hemoglobin 14.4 g/dL (14.0-18.0); Immature Granulocytes # (auto) 0.03 K/uL (0.00-0.02); Immature Granulocytes % (auto) 0.3 %; Lymphocytes # (auto) 1.81 K/uL (1.2-3.4); Lymphocytes % (auto) 19.9 %; Mean Corpuscular Hemoglobin 30.6 pg (25-34); Mean Corpuscular Hgb Conc 35.8 g/dL (32-36); Mean Corpuscular Volume 85.5 fL (80-100); Mean Platelet Volume 9.8 fL (7.4-10.4); Monocytes # (auto) 0.72 K/uL (0.11-0.59); Monocytes % (auto) 7.9 %; Neutrophils # (auto) 6.27 K/uL (1.4-6.5); Neutrophils % (auto) 68.9 %; Platelet Count 268 K/uL (130-400); RDW Coefficient of Variation 13.2 % (11.5-14.5); RDW Standard Deviation 41.2 fL (36.4-46.3); White Blood Count 9.11 K/uL (4.8-10.8)
[2020-06-27 06:56] LABS: Monotest Negative (Negative)
[2020-06-27 07:08] LABS: BUN Creatinine Ratio 15.3 (10-20); Blood Urea Nitrogen 13 mg/dl (7-18); Calcium 8.6 mg/dl (8.5-10.1); Carbon Dioxide 22 mmol/L (21-32); Chloride 109 mmol/L (98-107); Creatinine Clr Calc Pharmacy 109.1 ml/min; Est GFR (African American) 129.1; Est GFR (Non-African American) 111.4; Glucose 94 mg/dl (70-99); Iron 75 mcg/dl (35-175); Magnesium 2.1 mg/dl (1.8-2.4); Potassium 3.9 mmol/L (3.5-5.1); Sodium 138 mmol/L (136-145)
[2020-06-27 07:10] LABS: Total Iron Binding Capacity 271 mcg/dl (250-450)
[2020-06-27 07:19] LABS: C Reactive Protein < 0.29 mg/dl (0-0.29); Creatine Kinase 143 U/L (39-308); Ferritin 287.2 ng/ml (8-388); Thyroid Stimulating Hormone 0.868 uIu/ml (0.300-4.500); Troponin I < 0.015 ng/ml (0-0.045)
[2020-06-27 07:25] LABS: Lyme Ab IgG w/WB Rflx Negative (Negative); Lyme Ab IgM w/WB Rflx Negative (Negative)
[2020-06-27 07:26] LABS: Estimated Average Glucose 126 mg/dl
[2020-06-27 08:18] LABS: Folate (Folic Acid) > 20.00 ng/ml (>5.38); Vitamin B12 870 pg/ml (193-986)
[2020-06-27 08:46] LABS: Cortisol Random 10.98 mcg/dl; Vitamin D, 25 Hydrox 23.7 ng/ml (30-100)
[2020-06-27] MEDS ORDERED: MULTIVITAMIN TAB PO SCH (09:00)
[2020-06-27] MEDS ORDERED: FLUTICASONE HFA 110MCG INHALER INH SCH (09:00)
[2020-06-27] MEDS ORDERED: PANTOprazole 40 MG TAB PO SCH (09:00)
--- NOTE | 2020-06-27 09:23 | CT Scan Report ---
CT OF THE ABDOMEN AND PELVIS WITHOUT CONTRAST CLINICAL HISTORY: generalized fatigue, uncertain etiology COMPARISON STUDY: CT of the abdomen and pelvis April 29, 2020. KUB June 24, 2020. TECHNIQUE: Axial images of the abdomen and pelvis were obtained without IV contrast. Images were revi ewed in the axial, sagittal, and coronal planes. Automated exposure control was utilized for the clarita dy. A dose lowering technique was utilized adhering to the principles of ALARA. FINDINGS: Lung bases are unremarkable. No pneumatosis, free air or portal venous gas is present. No r enal, ureteral or bladder calculi are present. There is no hydronephrosis or hydroureter. There is no perinephric infiltration. Evaluation of the remainder of the abdomen and pelvis is suboptimal on thi s unenhanced examination. There is probable hepatic steatosis. No biliary or pancreatic ductal dilata tion is present. Unenhanced images of the spleen, adrenal glands and pancreas are unremarkable. Is no peripancreatic infiltration. There is no evidence for a bowel obstruction. The appendix is normal. M oderate amount stool is noted. There is no lymphadenopathy. No ascites is present. No acute fracture or suspicious lesion is identified within the visualized skeletal structures. IMPRESSION: 1. No urinary calculi or hydronephrosis. 2. No acute process within the abdomen or pelvis on unenhanced exam. No bowel obstruction. Normal solo endix. 3. Probable hepatic steatosis. ACT 112: Negative or not required by law. Electronically signed by: Heriberto Sung M.D. 06/27/2020 9:22 AM
--- NOTE | 2020-06-27 10:34 | Electrocardiogram Report ---
Test Reason : Blood Pressure : / mmHG Vent. Rate : 065 BPM Atrial Rate : 065 BPM P-R Int : 158 ms QRS Dur : 096 ms QT Int : 408 ms P-R-T Axes : 057 056 050 degrees QTc Int : 424 ms Normal sinus rhythm Early repolarization Normal ECG When compared with ECG of 24-JUN-2020 11:47, No significant change was found Confirmed by Neil Camacho ([id number]) on 06/27/2020 10:34:00 AM Referred By: REFERRED SELF Confirmed By:Neil Camacho
--- NOTE | 2020-06-27 12:00 | Discharge Summary ---
Date of Service June 27, 2020 Admission HPI Per Admitting Provider HISTORY OF PRESENT ILLNESS: This is a 39-year-old male with past medical history significant for hypertriglyceridemia; prediabetes; asthma, mild persistent; vitamin D deficiency; history of PPD positive, status post treatment, who presents with severe fatigue and weakness. The patient was in the ER in April of this year with abdominal discomfort. He has a history of C. diff in the past. At that time, CAT scan of the abdomen and pelvis was done which was unremarkable except for hepatic steatosis, small fat-containing right side Morgagni hernia. At that time, his LFTs and other labs were unremarkable and he was discharged. The patient again on 06/11/2020 complained of dizziness and shortness of breath. COVID was negative. The patient received COVID vaccine and finished a second dose in March. The patient has history of asthma and was thought it could be his asthma exacerbation. At that time in the ER, EKG and troponins were unremarkable and [facility] drawer in [employer] did a stress echo, which was also unremarkable and they thought it could be his asthma, so he was started on a course of steroids and got discharged. He was evaluated by pulmonary on 06/12/2020. It was thought his symptoms were due to poorly controlled asthma. He was placed on Breo Ellipta, Singulair and prednisone 40 mg for 5 days and then taper down to 20 mg and 10 mg in 3 days. The patient did not tolerate prednisone in the past,feels anxious, so he was given Ativan p.r.n. The patient says his asthma acts up in the cold weather. The patient says with high dose prednisone he was feeling very anxious, he was not feeling well at home, and also he stopped Singulair because thought it could be contributing to the symptoms and he changed Breo Ellipta to Flovent. Again after stopping the prednisone, he was still not feeling good, again having intermittent shortness of breath, so he came back to the ER on 06/24/2020. COVID test was again negative. At this time, CT of the chest was also done without contrast which was unremarkable. Again seen by cardiology in the ER. Again D-dimer screen was negative. Cardiology thought it is mostly not cardiac and it was reasonable to discharge him home and follow with pulmonary and if chest pain recurs plan for coronary CT and was discharged from the ER.Yesterday he was feeling better, so he came to work today. Later in the day today, he was feeling extremely exhausted, feeling fatigued and weakness, could not function properly. So at that time, it was decided to admit the patient and monitor in the hospital. The patient's blood pressure is fluctuating on and off, but on a recent stress echo test, there was no hypertensive response on the stress test, but he could only run for 4 minutes on the Venkatesh protocol whereas he did for 10 minutes in 2016. Declined exercise tolerance. The patient states before the pandemic he used to go to [employer], do half hour electrical and half hour weights, and also after the pandemic used to walk, but since the winter because he could not go outside because of his asthma, starting January he did not do any exercise. Currently resting comfortably and hemodynamically stable. Denies any chest pain, resting no shortness of breath. Has some dry cough. No headache, no blurred visions, no sore throat, no nausea, no abdominal pain. Appetite is somewhat down. Normal bowel and bladder movements. No rash seen. Admission Exam Per Admitting Provider PHYSICAL EXAMINATION: GENERAL: The patient is of moderate build, not in acute distress. VITAL SIGNS: Temperature 36.7, pulse 88, respiratory rate 19, blood pressure 129/82, oxygen 99% on room air. Temperature afebrile, pulse 94, respiratory rate 15, blood pressure 140/94, oxygen 97% on room air. HEENT: No pallor, no icterus. Pupils equal, round, and reactive to light. Oral mucosa moist. NECK: No JVD, no neck masses. CARDIOVASCULAR: S1, S2 heard. Regular rate and rhythm, no murmur, no gallop. RESPIRATORY SYSTEM: Normal AP diameter. No accessory muscle use. No wheezing, no crackles. ABDOMEN: Soft, bowel sounds present, nontender. No distention. CENTRAL NERVOUS SYSTEM: Cranial nerves II-XII grossly intact. Nonfocal. Coordination of movements normal. Power 5/5 in all extremities. Sensation is intact. EXTREMITIES: No edema, no erythema. Principal Diagnosis Weakness Vitamin D insufficiency Dyspnea, improved, multifactorial mild, persistent asthma-not in exacerbation Discharge Exam CONSTITUTIONAL: WNWD, vitals as above, generally well-appearing EYES: normal conjunctivae, no scleral icterus ENT: external ear and nose normal, MMM NECK: trachea midline, no lymphadenopathy RESPIRATORY: clear to auscultation bilaterally, no crackles, rales or wheezes, normal respiratory effort CARDIOVASCULAR: regular rate and rhythm, S1 and 2 heard without murmurs, gallops or rubs, no JVD, no peripheral edema CHEST: inspection of chest was normal GASTROINTESTINAL: soft, nontender, nondistended, no guarding MUSCULOSKELETAL: strength 5/5 throughout, head is normocephalic and atraumatic, ambulating at baseline. SKIN: warm and dry NEUROLOGIC: CN 2-12 grossly intact, no sensory deficit, normal cognition, normal speech, no gross focal deficits. PSYCHIATRIC: alert cooperative and oriented to person, place and time. Discharge Data Allergies Allergy/AdvReac Type Severity Reaction Status Date / Time shellfish derived Allergy Severe Hives Verified 06/26/20 23:08 ibuprofen Allergy Intermediate Hives Verified 06/26/20 23:08 Ordered Studies Laboratory Results WBC 9.11 K/uL (4.8-10.8) 06/27/20 06:14 RBC 4.70 M/uL (4.7-6.1) 06/27/20 06:14 Hgb 14.4 g/dL (14.0-18.0) 06/27/20 06:14 Hct 40.2 % (42-52) L 06/27/20 06:14 MCV 85.5 fL (80-100) 06/27/20 06:14 MCH 30.6 pg (25-34) 06/27/20 06:14 MCHC 35.8 g/dL (32-36) 06/27/20 06:14 RDW Std Deviation 41.2 fL (36.4-46.3) 06/27/20 06:14 RDW Coeff of Glenn 13.2 % (11.5-14.5) 06/27/20 06:14 Plt Count 268 K/uL (130-400) 06/27/20 06:14 MPV 9.8 fL (7.4-10.4) 06/27/20 06:14 Immature Gran % (Auto) 0.3 % 06/27/20 06:14 Neut % (Auto) 68.9 % 06/27/20 06:14 Lymph % (Auto) 19.9 % 06/27/20 06:14 [place] % (Auto) 7.9 % 06/27/20 06:14 Eos % (Auto) 2.6 % 06/27/20 06:14 Baso % (Auto) 0.4 % 06/27/20 06:14 Neut # (Auto) 6.27 K/uL (1.4-6.5) 06/27/20 06:14 Lymph # (Auto) 1.81 K/uL (1.2-3.4) 06/27/20 06:14 [place] # (Auto) 0.72 K/uL (0.11-0.59) H 06/27/20 06:14 Eos # (Auto) 0.24 K/uL (0-0.5) 06/27/20 06:14 Baso # (Auto) 0.04 K/uL (0-0.2) 06/27/20 06:14 Immature Gran # (Auto) 0.03 K/uL (0.00-0.02) H 06/27/20 06:14 Peripher Smr Path Cons Cancelled 06/27/20 Unknown ESR 13 mm/hr (0-14) 06/27/20 06:14 PT 10.3 Seconds (9.0-12.0) 06/26/20 20:16 INR 1.0 (0.9-1.1) 06/26/20 20:16 APTT 25.3 Seconds (21.0-31.0) 06/26/20 20:16 PTT Ratio 1.0 06/26/20 20:16 D-Dimer 410 ug/L FEU (0-500) 06/26/20 20:16 Sodium 138 mmol/L (136-145) 06/27/20 06:14 Potassium 3.9 mmol/L (3.5-5.1) 06/27/20 06:14 Chloride 109 mmol/L (98-107) H 06/27/20 06:14 Carbon Dioxide 22 mmol/L (21-32) 06/27/20 06:14 Anion Gap 7.0 (3-11) 06/27/20 06:14 BUN 13 mg/dl (7-18) 06/27/20 06:14 Creatinine 0.82 mg/dl (0.6-1.4) 06/27/20 06:14 Est Cr Clr Drug Dosing 109.1 ml/min 06/27/20 06:14 Est GFR ( Amer) 129.1 06/27/20 06:14 Est GFR (Non-Af Amer) 111.4 06/27/20 06:14 BUN/Creatinine Ratio 15.3 (10-20) 06/27/20 06:14 Glucose 94 mg/dl (70-99) 06/27/20 06:14 POC Glucose 124 mg/dl (70-99) H 06/27/20 11:17 Estimat Average Glucose 126 mg/dl 06/27/20 06:14 Hemoglobin A1c 6.0 % (4.5-5.6) H 06/27/20 06:14 Calcium 8.6 mg/dl (8.5-10.1) 06/27/20 06:14 Magnesium 2.1 mg/dl (1.8-2.4) 06/27/20 06:14 Iron 75 mcg/dl (35-175) 06/27/20 06:14 TIBC 271 mcg/dl (250-450) 06/27/20 06:14 Ferritin 287.2 ng/ml (8-388) 06/27/20 06:14 Total Bilirubin 0.4 mg/dl (0.2-1) 06/26/20 20:16 AST 11 U/L (15-37) L 06/26/20 20:16 ALT 45 U/L (12-78) 06/26/20 20:16 Alkaline Phosphatase 72 U/L (45-117) 06/26/20 20:16 Total Creatine Kinase 143 U/L (39-308) 06/27/20 06:14 Troponin I < 0.015 ng/ml (0-0.045) 06/27/20 06:14 C-Reactive Protein < 0.29 mg/dl (0-0.29) 06/27/20 06:14 Total Protein 8.2 gm/dl (6.4-8.2) 06/26/20 20:16 Albumin 3.9 gm/dl (3.4-5.0) 06/26/20 20:16 Globulin 4.3 gm/dl (2.5-4.0) H 06/26/20 20:16 Albumin/Globulin Ratio 0.9 (0.9-2) 06/26/20 20:16 Vitamin B12 870 pg/ml (193-986) 06/27/20 06:14 25-OH Vitamin D Total 23.7 ng/ml (30-100) L 06/27/20 06:14 Folate > 20.00 ng/ml (>5.38) 06/27/20 06:14 TSH 0.868 uIu/ml (0.300-4.500) 06/27/20 06:14 Random Cortisol 10.98 mcg/dl 06/27/20 06:14 SHWETA Screen NEGATIVE (NEGATIVE) 06/27/20 06:14 Lyme Disease IgG Ab Negative (Negative) 06/27/20 06:14 Lyme Disease IgM Ab Negative (Negative) 06/27/20 06:14 COVID-19 Eval Order CovFluRsv at [facility] 06/26/20 20:20 SARS-CoV-2 (PCR) NEGATIVE (Negative) 06/26/20 20:20 Monoscreen Negative (Negative) 06/27/20 06:14 HIV 1&2 Ab/P24 Ag 4thGn Neg (Neg) 06/27/20 06:14 Influenza Type A (PCR) Negative (Neg) 06/26/20 20:20 Influenza Type B (PCR) Negative (Neg) 06/26/20 20:20 RSV (RT-PCR) Negative (Neg) 06/26/20 20:20 Impressions Chest X-Ray 06/26/20 20:01 XR chest 1V portable CLINICAL HISTORY: sob, cough COMPARISON STUDY: Chest radiograph and chest CT June 24, 2020. FINDINGS: Lung volumes are normal. Lungs are clear. There is no pneumothorax or pleural effusion. Cardiac size is normal. Mediastinal contours are normal. There is no evidence for pulmonary edema. IMPRESSION: No acute cardiopulmonary findings. ACT 112: Negative or not required by law. Electronically signed by: Heriberto Sung M.D. 06/26/2020 9:08 PM Abdomen/Pelvis CT 06/26/20 21:46 CT OF THE ABDOMEN AND PELVIS WITHOUT CONTRAST CLINICAL HISTORY: generalized fatigue, uncertain etiology COMPARISON STUDY: CT of the abdomen and pelvis April 29, 2020. KUB June 24, 2020. TECHNIQUE: Axial images of the abdomen and pelvis were obtained without IV contrast. Images were reviewed in the axial, sagittal, and coronal planes. Automated exposure control was utilized for the study. A dose lowering technique was utilized adhering to the principles of ALARA. FINDINGS: Lung bases are unremarkable. No pneumatosis, free air or portal venous gas is present. No renal, ureteral or bladder calculi are present. There is no hydronephrosis or hydroureter. There is no perinephric infiltration. Evaluation of the remainder of the abdomen and pelvis is suboptimal on this unenhanced examination. There is probable hepatic steatosis. No biliary or pancreatic ductal dilatation is present. Unenhanced images of the spleen, adrenal glands and pancreas are unremarkable. Is no peripancreatic infiltration. There is no evidence for a bowel obstruction. The appendix is normal. Moderate amount stool is noted. There is no lymphadenopathy. No ascites is present. No acute fracture or suspicious lesion is identified within the visualized skeletal structures. IMPRESSION: 1. No urinary calculi or hydronephrosis. 2. No acute process within the abdomen or pelvis on unenhanced exam. No bowel obstruction. Normal appendix. 3. Probable hepatic steatosis. ACT 112: Negative or not required by law. Electronically signed by: Heriberto Sung M.D. 06/27/2020 9:22 AM Hospital Course (1) Weakness: (2) Vitamin D insufficiency: (3) Dyspnea: (4) Mild persistent asthma in adult without complication: 39-year-old man presents with severe fatigue and generalized weakness with dyspnea to a lesser degree. He was unable to ambulate on admission and this issue had been going on for the past couple of weeks. He had recently undergone treatment for a mild asthma exacerbation including a course of prednisone from which he felt he may be having side effects. He was admitted to the hospitalist service and underwent an extensive work-up including diagnostic imaging including a CT of the abdomen and pelvis without contrast which was unremarkable outside of probable hepatic steatosis and a chest x-ray revealing no acute cardiopulmonary findings. Additional lab studies included a normal CBC, normal BMP with normal renal function and glucose. Hemoglobin A1c was 6.0, calcium and magnesium were within normal range, no iron deficiency was noted, creatinine kinase was normal at 143, troponin was negative with a normal EKG reflecting sinus rhythm. Thyroid function studies, random cortisol level and vitamin B12 were all in the normal range. An SHWETA screen was negative, Covid PCR was negative, HIV was negative, influenza screen was negative, RSV was negative, mo no screen was negative. His vitamin D was low at 23.7 and replacement was given at time of discharge. The following day he was feeling improved and was sent home with vitamin D replacement and close primary care follow-up. He was also given and a nebulizer to use with DuoNeb therapy as needed for acute shortness of breath or wheezing. At time of discharge he was mentating and ambulating at baseline and tolerating p.o. He was hemodynamically stable and afebrile and oxygenating well on room air he was discharged in stable condition. Total Time Total Time Spent Total Time Spent (In Minutes): 60 Total Time Includes: Examination of the Patient, Discharge Planning, Medication Reconciliation and Communication With Other Providers Discharge Plan Discharge Items Patient Disposition: Home - Self-Care Reason For Visit: WEAKNESS,FATIGUE Discharge Diagnosis: Weakness Vitamin D insufficiency Dyspnea, improved, multifactorial mild, persistent asthma-not in exacerbation Condition on Discharge: Good Activity: Resume your previous activity Non-emergency contact: Primary Care Provider Call non-emergency contact if: you have any medication questions and your symptoms worsen Follow-up/Referrals: Migue Moody MD [Primary Care Provider] - Diet: Regular Addtl Attending Provider Instructions: Continued follow-up with pulmonology is recommended with completion of PFTs when at your baseline as previously planned. You are being given a prescription for a nebulizer machine on discharge. It is recommended to take this prescription to [facility] early next week. You may contact them at the following phone number. [phone] Your bronchod ilator therapy was sent to your pharmacy. It was a pleasure taking care of you! Please call if you have any questions or problems. You can reach a [facility] hospitalist on duty at [facility] 24 hours a day by calling [phone]. Take care of yourself. Jane Graves DO [facility] Pending Studies at Discharge: No Stand-Alone Forms: [facility] Medications and DC Order Prescriptions: New levalbuterol HCl [Xopenex] 1.25 mg/3 mL solution for nebulization 1.25 mg inhalation Q8H PRN (Reason: shortness of breath or wheezing) Qty: 75 RF: 0 ergocalciferol (vitamin D2) 1,250 mcg (50,000 unit) capsule 1,250 mcg PO Q7D Qty: 12 RF: 0 Continued lorazepam [Ativan] 0.5 mg tablet 0.5 mg PO DAILY PRN (Reason: anxiety) Qty: 10 RF: 0 multivitamin Tablet 1 tab PO QAM RF: 0 albuterol sulfate [Ventolin HFA] 90 mcg/actuation Hfa Aerosol Inhaler 2 puff INHALATION TID PRN (Reason: Shortness Of Breath Or Wheezing) RF: 0 epinephrine 0.3 mg/0.3 mL auto-injector 0.3 mg IM Q5M PRN (Reason: Allergic Reaction) Qty: 2 RF: 0 pantoprazole 20 mg Tablet,Delayed Release (Dr/Ec) 20 mg PO DAILY RF: 0 Flovent HFA 110 mcg/actuation HFA aerosol inhaler 2 puff INHALATION BID RF: 0 No Action Breo Ellipta 100-25 mcg/dose blister with device 2 inh inhalation BID RF: 0 fexofenadine [Trang Allergy] 180 mg tablet See Rx Instructions PO DAILY RF: 0 Adult Probiotic 3 billion cell capsule 3,000 mmu cells PO DAILY RF: 0 ipratropium bromide 42 mcg (0.06 %) spray,non-aerosol 2 spray intranasal DAILY Qty: 15 RF: 11 Discharge Orders: Discharge Order (Routine); Ordered 06/27/20 Ordered By: Jane Reeves/Other Patient Handouts: A1C Admission Data Admit Date/Time: 06/26/20 19:59 Attending Provider: Jane Graves Admit Provider: Pietro Rojas Primary Care Provider: Migue Moody Other Interventions: Discharge Summary Assessment (RN) Last Done: 06/27/20 12:03
[2020-06-30 10:35] LABS: Anti Nuclear Antibody Screen NEGATIVE (NEGATIVE)
--- NOTE | 2020-07-06 09:09 | Coding Query ---
CODING QUERY To promote full compliance with coding requirements relating to patient care, provider participation is requested in all cases of fringe weaver uncertainty. Please assist us with the question(s) below: Coding Question(s): Patient admitted with weakness and fatique. Workup negative during brief inpatiet stay. DS mentions Vit D deficiency and mild asthma. Please document, if known or suspected, the etiology of patient's symptoms. Thanks for your help! Akbar Gaines [facility] Physician's Response(s): possibly reaction to steroids or other new meds given for recent asthma exacerbation; etiology was not clear. patient was not fully resolved at time of discharge either; was only well enough to leave the hospital and continue outpatient workup. Principal Diagnosis: "that condition established after study, to be chiefly responsible for occasioning the admission of the patient to the hospital for care." Co-Existing Principal Diagnosis: "when two or more diagnoses equally meet the criteria for principal diagnosis as determined by the circumstances of admission, diagnostic work up, and/or therapy provided, and the Alphabetic Index, Tabular List, or another coding guideline does not provide sequencing direction, any one of the diagnoses may be sequenced first." "When the physician has documented what appears to be a current diagnosis in the body of the record, but has not included the diagnosis in the final diagnostic statement, the physician should be asked whether the diagnosis should be added." (Source Coding Clinic 2 QTR90. p3-4) ROSEY
== END 2020-06-27 13:45 | disposition home or self-care (01) | DRG 948 ==
LOC: ED 18:37 → 2W 19:59

== ENCOUNTER 2020-07-13 15:18 | Inpatient (IN) ==
[2020-07-13] MEDS ORDERED: ONDANSETRON INJ 2 MG/ML 2 ML VIAL IV STA (15:55)
[2020-07-13] MEDS ORDERED: SODIUM CHLORIDE 0.9% 1000ML 2,000 ML IV ONE (15:55)
[2020-07-13] MEDS ORDERED: methylPREDNISolone 125 MG/2 ML VIAL IV STA (15:56)
--- NOTE | 2020-07-13 16:02 | Emergency Department Note ---
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 Along with that he has been having early satiety. This morning he woke up and felt sick to his stomach. He has vomited twice. He took 1 tab of Zofran at 12. He admits to 2 loose bowel movements. Denies any headache or change in vision. No chest pain or shortness of breath. His upper respiratory symptoms have improved significantly. Denies any dysuria urgency or frequency. ROS: See above HPI for for pertinent positives & negatives. A total of 10 systems reviewed and were otherwise negative. PAST MEDICAL HISTORY:See Below PAST SURGICAL HISTORY:See Below FAMILY HISTORY:See Below SOCIAL HISTORY:See Below HOME MEDICATIONS:See Below ALLERGIES:See Below VITALS:See Below PHYSICAL EXAMINATION: GENERAL: Sitting up in bed, alert, well appearing, well nourished, no distress, non-toxic EYE EXAM: normal conjunctiva. OROPHARYNX: no exudate, no erythema, lips, buccal mucosa, and tongue normal and mucous membranes are moist NECK: supple, no nuchal rigidity, no adenopathy, non-tender LUNGS: Clear to auscultation. Normal chest wall mechanics HEART: no murmurs, S1 normal and S2 normal ABDOMEN: abdomen soft, non-tender, normo-active bowel sounds, no masses, no rebound or guarding. UPPER EXTREMITIES: upper extremities are grossly normal. LOWER EXTREMITIES: No pitting edema. NEURO EXAM: Normal sensorium, cranial nerves II-XII grossly intact, normal speech, no gross weakness of arms, no gross weakness of legs. 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 Review was established blood work was obtained. Labs show a leukocytosis of 18,000. No significant anemia. BMP along with LFTs bilirubin was unremarkable. Lipase was normal. UA was clean. C. difficile was negative. CT abdomen pelvis showed a distended fluid-filled stomach and small bowel. Chest x-ray was unremarkable. He was updated bedside. He requested I discussed with the hospitalist. Discussed with Dr. Joseph who evaluated him at bedside patient was admitted for further work-up. Triage Nursing notes reviewed. Limited review of prior medical records performed Vital Signs: reviewed and remarkable for no significant abnormalities Differential diagnosis: Differential diagnoses includes but is not limited to gastritis, peptic ulcer disease, GERD, gallbladder disease, pancreatitis, small bowel obstruction, acute coronary syndrome, pericarditis, ischemic bowel, irritable bowel disease, irritable bowel syndrome, appendicitis, diverticulitis, malignancy, hernia, urinary tract infection, torsion, /ectopic (if female), perforation, trauma, infectious. ER treatment provided: See below Diagnostics interpreted by me: ECG: none Cardiac Monitoring: An order was placed for continuous cardiac monitoring. The monitor shows a rate of 101 with sinus rhythm. Laboratory studies: As stated above and show below. Imaging studies: CT abdomen pelvis as discussed above Consultation(s): none Procedures: none Critical Care: None Past Med/Surg History Medical History (Updated 07/13/20 @ 19:51 by Bran Rees DO) Abdominal bloating Acute dyspnea Asthma, mild intermittent Family History Other No pertinent family history in first degree relatives Social History Smoking Status: Never smoker Hx Alcohol Use: No Hx Substance Use: No Preferred Language: Croatian Communication Ability: Effective Visual Impairment: No Limitations Hearing Ability: Normal Computer Artist Required: No Beliefs That Will Affect Care: None Current Living Situation: Parent Current Living Situation Comment: parents live with patient current occupational status: 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[employer] Feels Safe at Home: Yes Assistive Devices: Glasses Allergies Allergies Allergy/AdvReac Type Severity Reaction Status Date / Time shellfish derived Allergy Severe Hives Verified 07/13/20 15:45 ibuprofen Allergy Intermediate Hives Verified 07/13/20 15:45 Home Meds Home Medications Medication Instructions Recorded Confirmed albuterol sulfate [Ventolin HFA] 2 puff INHALATION TID PRN 03/15/18 07/13/20 multivitamin 1 tab PO QAM 03/15/18 07/13/20 pantoprazole 20 mg PO DAILY 06/24/20 07/13/20 Flovent HFA 2 puff INHALATION BID 06/26/20 07/13/20 fexofenadine 180 mg tablet See Rx Instructions PO DAILY 07/02/20 07/13/20 fluticasone furoate 100 2 inh INHALATION BID ea 07/02/20 07/13/20 mcg-vilanterol 25 mcg/dose inhalation powder lactobacillus combination no.8 3 3,000 mmu cells PO DAILY 07/02/20 07/13/20 billion cell capsule ergocalciferol (vitamin D2) 1,250 mcg PO WK 07/13/20 07/13/20 Previous Rx's Medication Instructions Recorded epinephrine 0.3 mg IM Q5M PRN #2 ea 09/14/19 lorazepam 0.5 mg tablet 0.5 mg PO DAILY PRN #10 tab 06/12/20 levalbuterol HCl [Xopenex] 1.25 mg INHALATION Q8H PRN #75 ml 06/27/20 ipratropium bromide 42 mcg (0.06 2 spray INTRANASAL DAILY #15 ml 07/02/20 %) nasal spray Results & Data (ED) Vital Signs Vital Signs - 24 hr 07/13/20 15:26 07/13/20 15:35 07/13/20 15:38 Temperature 37.3 C Temperature Source Oral Pulse Rate 101 H 100 H 104 H Pulse Rate from SpO2 Sensor 102 H 100 H Pulse Rhythm Regular Pulse Strength Normal Respiratory Rate 19 18 23 Respiratory Effort / Characteristics Non-Labored Respiratory Depth Normal Respiratory Pattern Regular Blood Pressure 137/101 H 153/87 H Blood Pressure Mean 113 109 Blood Pressure Position Sitting Pulse Oximetry 99 99 98 Oxygen Delivery Method Room Air Sepsis Recent Fever Within 48 Hours No Sepsis New/Unexplained Change in Mental Status No Sepsis Action Taken by Nursing No Action Required 07/13/20 15:40 07/13/20 15:51 07/13/20 16:00 Temperature Temperature Source Pulse Rate 97 H 101 H 102 H Pulse Rate from SpO2 Sensor 98 H 104 H 101 H Pulse Rhythm Pulse Strength Respiratory Rate 21 19 22 Respiratory Effort / Characteristics Respiratory Depth Respiratory Pattern Blood Pressure 137/90 Blood Pressure Mean 105 Blood Pressure Position Pulse Oximetry 95 98 97 Oxygen Delivery Method Sepsis Recent Fever Within 48 Hours Sepsis New/Unexplained Change in Mental Status Sepsis Action Taken by Nursing 07/13/20 16:01 07/13/20 16:10 07/13/20 16:29 Temperature Temperature Source Pulse Rate 97 H 101 H 99 H Pulse Rate from SpO2 Sensor 97 H 100 H 99 H Pulse Rhythm Pulse Strength Respiratory Rate 23 20 15 Respiratory Effort / Characteristics Respiratory Depth Respiratory Pattern Blood Pressure Blood Pressure Mean Blood Pressure Position Pulse Oximetry 97 98 98 Oxygen Delivery Method Sepsis Recent Fever Within 48 Hours Sepsis New/Unexplained Change in Mental Status Sepsis Action Taken by Nursing 07/13/20 16:30 07/13/20 16:31 07/13/20 16:40 Temperature Temperature Source Pulse Rate 108 H 99 H 98 H Pulse Rate from SpO2 Sensor 106 H 99 H 98 H Pulse Rhythm Regular Pulse Strength Respiratory Rate 18 19 20 Respiratory Effort / Characteristics Respiratory Depth Respiratory Pattern Blood Pressure 135/82 Blood Pressure Mean 99 Blood Pressure Position Pulse Oximetry 99 99 99 Oxygen Delivery Method Room Air Sepsis Recent Fever Within 48 Hours Sepsis New/Unexplained Change in Mental Status Sepsis Action Taken by Nursing 07/13/20 16:55 07/13/20 16:56 07/13/20 17:00 Temperature Temperature Source Pulse Rate 107 H 100 H 93 H Pulse Rate from SpO2 Sensor 104 H 102 H 92 H Pulse Rhythm Pulse Strength Respiratory Rate 16 17 17 Respiratory Effort / Characteristics Respiratory Depth Respiratory Pattern Blood Pressure 150/98 H 140/95 Blood Pressure Mean 115 110 Blood Pressure Position Pulse Oximetry 99 99 99 Oxygen Delivery Method Sepsis Recent Fever Within 48 Hours Sepsis New/Unexplained Change in Mental Status Sepsis Action Taken by Nursing 07/13/20 17:01 07/13/20 17:10 07/13/20 17:20 Temperature Temperature Source Pulse Rate 97 H 101 H 102 H Pulse Rate from SpO2 Sensor 98 H 101 H 101 H Pulse Rhythm Pulse Strength Respiratory Rate 20 23 21 Respiratory Effort / Characteristics Respiratory Depth Respiratory Pattern Blood Pressure Blood Pressure Mean Blood Pressure Position Pulse Oximetry 99 99 100 Oxygen Delivery Method Sepsis Recent Fever Within 48 Hours Sepsis New/Unexplained Change in Mental Status Sepsis Action Taken by Nursing 07/13/20 17:30 07/13/20 17:31 07/13/20 17:40 Temperature Temperature Source Pulse Rate 96 H 104 H 98 H Pulse Rate from SpO2 Sensor 96 H 102 H 99 H Pulse Rhythm Pulse Strength Respiratory Rate 19 18 Respiratory Effort / Characteristics Respiratory Depth Respiratory Pattern Blood Pressure 142/89 H Blood Pressure Mean 106 Blood Pressure Position Pulse Oximetry 100 100 99 Oxygen Delivery Method Sepsis Recent Fever Within 48 Hours Sepsis New/Unexplained Change in Mental Status Sepsis Action Taken by Nursing 07/13/20 17:50 07/13/20 18:00 07/13/20 18:01 Temperature Temperature Source Pulse Rate 98 H 105 H 105 H Pulse Rate from SpO2 Sensor 98 H 106 H 102 H Pulse Rhythm Pulse Strength Respiratory Rate 20 24 23 Respiratory Effort / Characteristics Respiratory Depth Respiratory Pattern Blood Pressure 148/103 H Blood Pressure Mean 118 Blood Pressure Position Pulse Oximetry 99 98 98 Oxygen Delivery Method Sepsis Recent Fever Within 48 Hours Sepsis New/Unexplained Change in Mental Status Sepsis Action Taken by Nursing 07/13/20 18:10 07/13/20 18:20 Temperature Temperature Source Pulse Rate 106 H 106 H Pulse Rate from SpO2 Sensor 106 H 106 H Pulse Rhythm Pulse Strength Respiratory Rate 15 22 Respiratory Effort / Characteristics Respiratory Depth Respiratory Pattern Blood Pressure Blood Pressure Mean Blood Pressure Position Pulse Oximetry 97 96 Oxygen Delivery Method Sepsis Recent Fever Within 48 Hours Sepsis New/Unexplained Change in Mental Status Sepsis Action Taken by Nursing Laboratory Data Result diagrams: 07/13/20 15:33 07/13/20 15:33 Lab Results 07/13/20 07/13/20 07/13/20 Range/Units 15:33 15:33 15:37 WBC 18.53 H (4.8-10.8) K/uL RBC 5.58 (4.7-6.1) M/uL Hgb 17.2 (14.0-18.0) g/dL POC Hgb (14.0-18.0) g/dl Hct 48.8 (42-52) % POC Hct (42-52) % MCV 87.5 (80-100) fL MCH 30.8 (25-34) pg MCHC 35.2 (32-36) g/dL RDW Std Deviation 42.6 (36.4-46.3) fL RDW Coeff of Glenn 13.4 (11.5-14.5) % Plt Count 325 (130-400) K/uL MPV 9.9 (7.4-10.4) fL Immature Gran % (Auto) 0.6 % Neut % (Auto) 86.4 % Lymph % (Auto) 6.6 % Levy % (Auto) 5.0 % Eos % (Auto) 1.2 % Baso % (Auto) 0.2 % Neut # (Auto) 16.01 H (1.4-6.5) K/uL Lymph # (Auto) 1.23 (1.2-3.4) K/uL Levy # (Auto) 0.93 H (0.11-0.59) K/uL Eos # (Auto) 0.22 (0-0.5) K/uL Baso # (Auto) 0.03 (0-0.2) K/uL Immature Gran # (Auto) 0.11 H (0.00-0.02) K/uL POC Sodium (135-144) mmol/L Sodium 136 (136-145) mmol/L POC Potassium (3.3-5.0) mmol/L Potassium 3.7 (3.5-5.1) mmol/L POC Chloride (101-112) mmol/L Chloride 104 (98-107) mmol/L Carbon Dioxide 23 (21-32) mmol/L POC Total CO2 (24-31) mmol/L Anion Gap 9.0 (3-11) POC Anion Gap (16-25) mmol/L POC BUN (7-18) mg/dl BUN 12 (7-18) mg/dl Creatinine 0.91 (0.6-1.4) mg/dl POC Creatinine (0.6-1.3) mg/dl Est Cr Clr Drug Dosing 98.3 ml/min Est GFR ( Amer) 122.6 Est GFR (Non-Af Amer) 105.8 BUN/Creatinine Ratio 13.5 (10-20) Glucose 104 H (70-99) mg/dl POC Glucose 109 H (70-99) mg/dl POC Glucose (other) (70-99) mg/dl Calcium 9.8 (8.5-10.1) mg/dl POC Ioniz Calcium Arik (1.12-1.32) mmol/l Total Bilirubin 0.6 (0.2-1) mg/dl Direct Bilirubin 0.1 (0-0.2) mg/dl AST 14 L (15-37) U/L ALT 52 (12-78) U/L Alkaline Phosphatase 74 (45-117) U/L Total Protein 8.8 H (6.4-8.2) gm/dl Albumin 4.5 (3.4-5.0) gm/dl Globulin 4.3 H (2.5-4.0) gm/dl Albumin/Globulin Ratio 1.1 (0.9-2) Lipase 78 (73-393) U/L Urine Color Urine Appearance (Clear) Urine pH (4.5-7.5) Ur Specific [place] (1.000-1.030) Urine Protein (Negative) Urine Glucose (UA) (Negative) Urine Ketones (Negative) Urine Blood (Negative) Urine Nitrite (Negative) Urine Bilirubin (Negative) Urine Urobilinogen (Negative) Ur Leukocyte Esterase (Negative) Stl C. diff Tox B Gene (Neg) COVID-19 Eval Order 07/13/20 07/13/20 07/13/20 Range/Units 16:19 16:34 18:30 WBC (4.8-10.8) K/uL RBC (4.7-6.1) M/uL Hgb (14.0-18.0) g/dL POC Hgb 16.0 (14.0-18.0) g/dl Hct (42-52) % POC Hct 47 (42-52) % MCV (80-100) fL MCH (25-34) pg MCHC (32-36) g/dL RDW Std Deviation (36.4-46.3) fL RDW Coeff of Glenn (11.5-14.5) % Plt Count (130-400) K/uL MPV (7.4-10.4) fL Immature Gran % (Auto) % Neut % (Auto) % Lymph % (Auto) % Levy % (Auto) % Eos % (Auto) % Baso % (Auto) % Neut # (Auto) (1.4-6.5) K/uL Lymph # (Auto) (1.2-3.4) K/uL Levy # (Auto) (0.11-0.59) K/uL Eos # (Auto) (0-0.5) K/uL Baso # (Auto) (0-0.2) K/uL Immature Gran # (Auto) (0.00-0.02) K/uL POC Sodium 136 (135-144) mmol/L Sodium (136-145) mmol/L POC Potassium 4.4 (3.3-5.0) mmol/L Potassium (3.5-5.1) mmol/L POC Chloride 105 (101-112) mmol/L Chloride (98-107) mmol/L Carbon Dioxide (21-32) mmol/L POC Total CO2 22 L (24-31) mmol/L Anion Gap (3-11) POC Anion Gap 14.0 L (16-25) mmol/L POC BUN 16 (7-18) mg/dl BUN (7-18) mg/dl Creatinine (0.6-1.4) mg/dl POC Creatinine 0.6 (0.6-1.3) mg/dl Est Cr Clr Drug Dosing ml/min Est GFR ( Amer) Est GFR (Non-Af Amer) BUN/Creatinine Ratio (10-20) Glucose (70-99) mg/dl POC Glucose (70-99) mg/dl POC Glucose (other) 97 (70-99) mg/dl Calcium (8.5-10.1) mg/dl POC Ioniz Calcium Arik 1.14 (1.12-1.32) mmol/l Total Bilirubin (0.2-1) mg/dl Direct Bilirubin (0-0.2) mg/dl AST (15-37) U/L ALT (12-78) U/L Alkaline Phosphatase (45-117) U/L Total Protein (6.4-8.2) gm/dl Albumin (3.4-5.0) gm/dl Globulin (2.5-4.0) gm/dl Albumin/Globulin Ratio (0.9-2) Lipase (73-393) U/L Urine Color Urine Appearance (Clear) Urine pH (4.5-7.5) Ur Specific [place] (1.000-1.030) Urine Protein (Negative) Urine Glucose (UA) (Negative) Urine Ketones (Negative) Urine Blood (Negative) Urine Nitrite (Negative) Urine Bilirubin (Negative) Urine Urobilinogen (Negative) Ur Leukocyte Esterase (Negative) Stl C. diff Tox B Gene Negative Cdiff Gene (Neg) COVID-19 Eval Order [facility]sv at [facility] 07/13/20 Range/Units Unknown WBC (4.8-10.8) K/uL RBC (4.7-6.1) M/uL Hgb (14.0-18.0) g/dL POC Hgb (14.0-18.0) g/dl Hct (42-52) % POC Hct (42-52) % MCV (80-100) fL MCH (25-34) pg MCHC (32-36) g/dL RDW Std Deviation (36.4-46.3) fL RDW Coeff of Glenn (11.5-14.5) % Plt Count (130-400) K/uL MPV (7.4-10.4) fL Immature Gran % (Auto) % Neut % (Auto) % Lymph % (Auto) % Levy % (Auto) % Eos % (Auto) % Baso % (Auto) % Neut # (Auto) (1.4-6.5) K/uL Lymph # (Auto) (1.2-3.4) K/uL Levy # (Auto) (0.11-0.59) K/uL Eos # (Auto) (0-0.5) K/uL Baso # (Auto) (0-0.2) K/uL Immature Gran # (Auto) (0.00-0.02) K/uL POC Sodium (135-144) mmol/L Sodium (136-145) mmol/L POC Potassium (3.3-5.0) mmol/L Potassium (3.5-5.1) mmol/L POC Chloride (101-112) mmol/L Chloride (98-107) mmol/L Carbon Dioxide (21-32) mmol/L POC Total CO2 (24-31) mmol/L Anion Gap (3-11) POC Anion Gap (16-25) mmol/L POC BUN (7-18) mg/dl BUN (7-18) mg/dl Creatinine (0.6-1.4) mg/dl POC Creatinine (0.6-1.3) mg/dl Est Cr Clr Drug Dosing ml/min Est GFR ( Amer) Est GFR (Non-Af Amer) BUN/Creatinine Ratio (10-20) Glucose (70-99) mg/dl POC Glucose (70-99) mg/dl POC Glucose (other) (70-99) mg/dl Calcium (8.5-10.1) mg/dl POC Ioniz Calcium Arik (1.12-1.32) mmol/l Total Bilirubin (0.2-1) mg/dl Direct Bilirubin (0-0.2) mg/dl AST (15-37) U/L ALT (12-78) U/L Alkaline Phosphatase (45-117) U/L Total Protein (6.4-8.2) gm/dl Albumin (3.4-5.0) gm/dl Globulin (2.5-4.0) gm/dl Albumin/Globulin Ratio (0.9-2) Lipase (73-393) U/L Urine Color Yellow Urine Appearance Clear (Clear) Urine pH 6.5 (4.5-7.5) Ur Specific [place] 1.026 (1.000-1.030) Urine Protein Negative (Negative) Urine Glucose (UA) Negative (Negative) Urine Ketones Negative (Negative) Urine Blood Negative (Negative) Urine Nitrite Negative (Negative) Urine Bilirubin Negative (Negative) Urine Urobilinogen Negative (Negative) Ur Leukocyte Esterase Negative (Negative) Stl C. diff Tox B Gene (Neg) COVID-19 Eval Order Administered Medications Discontinued Medications Sodium Chloride (Nss 1000ml) 2,000 mls @ 999 mls/hr IV .Q2H1M ONE Stop: 07/13/20 17:55 Last Infusion: 07/13/20 18:12 Dose: 0 mls/hr Documented by: [id number] Admin: 07/13/20 16:05 Dose: 999 mls/hr Documented by: [id number] Pantoprazole Sodium 40 mg/ (Syringe) 10 mls @ 5 mls/min IV NOW ONE Stop: 07/13/20 16:20 Last Admin: 07/13/20 16:57 Dose: 5 mls/min Documented by: [id number] Ioversol (Optiray 300 100ml) 88 ml IV ONCE ONE Stop: 07/13/20 16:51 Last Admin: 07/13/20 16:51 Dose: 88 ml Documented by: [id number] Methylprednisolone (Methylprednisolone 125 Mg/2 Ml Vial) 125 mg IV NOW STA Stop: 07/13/20 15:57 Last Admin: 07/13/20 16:05 Dose: 125 mg Documented by: [id number] Ondansetron HCl (Ondansetron Inj 2 Mg/Ml 2 Ml Vial) 4 mg IV NOW STA Stop: 07/13/20 15:56 Last Admin: 07/13/20 16:05 Dose: 4 mg Documented by: [id number] Imaging Data Radiologist's Impression: Abdomen/Pelvis CT 07/13/20 15:55 CT OF THE ABDOMEN AND PELVIS WITH CONTRAST CLINICAL HISTORY: Abdominal pain. COMPARISON STUDY: CT of the abdomen and pelvis June 27, 2020. TECHNIQUE: Following IV administration of 88 mL of Optiray, axial images of the abdomen and pelvis were obtained from the lung bases to the proximal femurs. Images were reviewed in the axial, sagittal, and coronal planes. IV contrast was administered without complication. Automated exposure control was utilized for the study. A dose lowering technique was utilized adhering to the principles of ALARA. CT DOSE: 415.52 mGy.cm FINDINGS: Lung bases are clear. No pneumatosis, free air or portal venous gas is present. Hepatic steatosis is noted. There are no hepatic lesions. The spleen, adrenal glands, kidneys and pancreas are normal. There is no biliary or pancreatic ductal dilatation. No peripancreatic or pericholecystic infiltration is present. Major vasculature is patent. The stomach is mildly distended and fluid-filled. The caliber and wall thickness of small and large bowel are normal. Small bowel is mildly fluid-filled as is the colon. The appendix is normal. There is no lymphadenopathy or ascites. There is no abscess. No acute fracture or suspicious lesion is identified within the visualized skeletal structures. IMPRESSION: 1. Mildly distended fluid-filled stomach and small bowel. This could reflect gastroenteritis in the appropriate clinical setting. 2. No bowel wall thickening. Normal appendix. No bowel obstruction. 3. Hepatic steatosis. ACT 112: Negative or not required by law. Electronically signed by: Heriberto Sung M.D. 07/13/2020 5:06 PM Chest X-Ray 07/13/20 18:39 XR chest 1V portable HISTORY: 39 years-old Male abd pain acute atypical chest pain COMPARISON: CT abdomen and pelvis 07/13/2020, chest radiograph 07/08/2020 TECHNIQUE: Portable AP view the chest FINDINGS: Cardiomediastinal and hilar silhouettes are within normal limits. No pneumothorax, pleural effusion, airspace consolidation or overt pulmonary edema. Bones of the chest appear grossly intact. IMPRESSION: No acute process. ACT 112: Negative or not required by law. The above report was generated using voice recognition software. It may contain grammatical, syntax or spelling errors. Electronically signed by: Jm Pozo M.D. 07/13/2020 7:05 PM Discharge Plan Visit Data Chief Complaint: Vomiting Stated Complaint: VOMITING,DIARRHEA ED Provider: Bran Rees Discharge Problem: Abdominal pain, Leukocytosis, Nausea, Vomiting Forms Stand Alone Forms: My [facility] [employer] Prescriptions Prescriptions: No Action Breo Ellipta 100-25 mcg/dose blister with device 2 inh inhalation BID RF: 0 fexofenadine [Trang Allergy] 180 mg tablet See Rx Instructions PO DAILY RF: 0 Adult Probiotic 3 billion cell capsule 3,000 mmu cells PO DAILY RF: 0 ipratropium bromide 42 mcg (0.06 %) spray,non-aerosol 2 spray intranasal DAILY Qty: 15 RF: 11 lorazepam [Ativan] 0.5 mg tablet 0.5 mg PO DAILY PRN (Reason: anxiety) Qty: 10 RF: 0 multivitamin Tablet 1 tab PO QAM RF: 0 albuterol sulfate [Ventolin HFA] 90 mcg/actuation Hfa Aerosol Inhaler 2 puff INHALATION TID PRN (Reason: Shortness Of Breath Or Wheezing) RF: 0 epinephrine 0.3 mg/0.3 mL auto-injector 0.3 mg IM Q5M PRN (Reason: Allergic Reaction) Qty: 2 RF: 0 pantoprazole 20 mg Tablet,Delayed Release (Dr/Ec) 20 mg PO DAILY RF: 0 Flovent HFA 110 mcg/actuation HFA aerosol inhaler 2 puff INHALATION BID RF: 0 levalbuterol HCl [Xopenex] 1.25 mg/3 mL solution for nebulization 1.25 mg inhalation Q8H PRN (Reason: shortness of breath or wheezing) Qty: 75 RF: 0 ergocalciferol (vitamin D2) 1,250 mcg (50,000 unit) capsule 1,250 mcg PO WK RF: 0 Discharge Problem: Abdominal pain Qualifiers: Abdominal location: unspecified location Qualified Code(s): R10.9 - Unspecified abdominal pain Leukocytosis Qualifiers: Leukocytosis type: unspecified Qualified Code(s): D72.829 - Elevated white blood cell count, unspecified Vomiting Qualifiers: Vomiting type: unspecified Vomiting Intractability: unspecified Nausea presence: unspecified Qualified Code(s): R11.10 - Vomiting, unspecified
[2020-07-13] MEDS ORDERED: PANTOprazole 40 MG in SYRINGE 0 ML IV ONE (16:19)
[2020-07-13 16:20] LABS: Basophils # (auto) 0.03 K/uL (0-0.2); Basophils % (auto) 0.2 %; Eosinophils # (auto) 0.22 K/uL (0-0.5); Eosinophils % (auto) 1.2 %; Hematocrit (blood only) 48.8 % (42-52); Hemoglobin 17.2 g/dL (14.0-18.0); Immature Granulocytes # (auto) 0.11 K/uL (0.00-0.02); Immature Granulocytes % (auto) 0.6 %; Lymphocytes # (auto) 1.23 K/uL (1.2-3.4); Lymphocytes % (auto) 6.6 %; Mean Corpuscular Hemoglobin 30.8 pg (25-34); Mean Corpuscular Hgb Conc 35.2 g/dL (32-36); Mean Corpuscular Volume 87.5 fL (80-100); Mean Platelet Volume 9.9 fL (7.4-10.4); Monocytes # (auto) 0.93 K/uL (0.11-0.59); Neutrophils # (auto) 16.01 K/uL (1.4-6.5); Neutrophils % (auto) 86.4 %; Platelet Count 325 K/uL (130-400); RDW Coefficient of Variation 13.4 % (11.5-14.5); RDW Standard Deviation 42.6 fL (36.4-46.3); Red Blood Count 5.58 M/uL (4.7-6.1); White Blood Count 18.53 K/uL (4.8-10.8)
[2020-07-13 16:28] LABS: Albumin Level 4.5 gm/dl (3.4-5.0); BUN Creatinine Ratio 13.5 (10-20); Calcium 9.8 mg/dl (8.5-10.1); Creatinine Clr Calc Pharmacy 98.3 ml/min; Est GFR (African American) 122.6; Est GFR (Non-African American) 105.8; Potassium 3.7 mmol/L (3.5-5.1)
[2020-07-13 16:31] LABS: Albumin Globulin Ratio 1.1 (0.9-2); Bilirubin,Total 0.6 mg/dl (0.2-1); Globulin 4.3 gm/dl (2.5-4.0); Total Protein 8.8 gm/dl (6.4-8.2)
[2020-07-13 16:35] LABS: iSTAT Creatinine 0.6 mg/dl (0.6-1.3); iSTAT Ionized Calcium 1.14 mmol/l (1.12-1.32); iSTAT Potassium 4.4 mmol/L (3.3-5.0)
[2020-07-13] MEDS ORDERED: OPTIRAY 300 100mL IV ONE (16:50)
--- NOTE | 2020-07-13 17:08 | CT Scan Report ---
CT OF THE ABDOMEN AND PELVIS WITH CONTRAST CLINICAL HISTORY: Abdominal pain. COMPARISON STUDY: CT of the abdomen and pelvis June 27, 2020. TECHNIQUE: Following IV administration of 88 mL of Optiray, axial images of the abdomen and pelvis we re obtained from the lung bases to the proximal femurs. Images were reviewed in the axial, sagittal, and coronal planes. IV contrast was administered without complication. Automated exposure control wa s utilized for the study. A dose lowering technique was utilized adhering to the principles of ALARA . CT DOSE: 415.52 mGy.cm FINDINGS: Lung bases are clear. No pneumatosis, free air or portal venous gas is present. Hepatic jalyn atosis is noted. There are no hepatic lesions. The spleen, adrenal glands, kidneys and pancreas are n ormal. There is no biliary or pancreatic ductal dilatation. No peripancreatic or pericholecystic infi ltration is present. Major vasculature is patent. The stomach is mildly distended and fluid-filled. T he caliber and wall thickness of small and large bowel are normal. Small bowel is mildly fluid-filled as is the colon. The appendix is normal. There is no lymphadenopathy or ascites. There is no abscess . No acute fracture or suspicious lesion is identified within the visualized skeletal structures. IMPRESSION: 1. Mildly distended fluid-filled stomach and small bowel. This could reflect gastroenteritis in the a ppropriate clinical setting. 2. No bowel wall thickening. Normal appendix. No bowel obstruction. 3. Hepatic steatosis. ACT 112: Negative or not required by law. Electronically signed by: Heriberto Sung M.D. 07/13/2020 5:06 PM
[2020-07-13 18:21] LABS: Appearance Urine Clear (Clear); Bilirubin Urine Negative (Negative); Blood Urine Negative (Negative); Color Urine Yellow; Glucose Urine UA Negative (Negative); Ketones Urine Negative (Negative); Leukocyte Esterase Urine Negative (Negative); Nitrite Urine Negative (Negative); Protein Urine Negative (Negative); Specific Gravity Urine 1.026 (1.000-1.030); Urobilinogen Urine Negative (Negative); pH Urine 6.5 (4.5-7.5)
--- NOTE | 2020-07-13 19:06 | XRay Report ---
XR chest 1V portable HISTORY: 39 years-old Male abd pain acute atypical chest pain COMPARISON: CT abdomen and pelvis 07/13/2020, chest radiograph 07/08/2020 TECHNIQUE: Portable AP view the chest FINDINGS: Cardiomediastinal and hilar silhouettes are within normal limits. No pneumothorax, pleural effusion, airspace consolidation or overt pulmonary edema. Bones of the chest appear grossly intact. IMPRESSION: No acute process. ACT 112: Negative or not required by law. The above report was generated using voice recognition software. It may contain grammatical, syntax o r spelling errors. Electronically signed by: Jm Pozo M.D. 07/13/2020 7:05 PM
--- NOTE | 2020-07-13 19:06 | History & Physical Report ---
Date of Service July 13, 2020 Assessment & Plan (1) Intractable nausea and vomiting: Has been complaining of dyspeptic symptom since April with occasional nausea Has been on omeprazole 20 mg once daily without much improvement of symptoms Associated anorexia Increasing abdominal discomfort with nausea and vomiting this morning CT scan of the abdomen and pelvis did not show any acute findings except mild dilatation of the stomach He was admitted to [facility] telemetry unit with intravenous PPI 2 times a day GI consultation and possible EGD tomorrow N.p.o. after midnight (2) Abdominal bloating: Abdominal bloating and dyspepsia since April Associated with anorexia Loss of weight about 10 pounds since April We will get ultrasound of the liver to rule out any gallstones and/or cholecystitis We will check a stool for H. pylori antigen (3) Leukocytosis: White count seems to be elevated at 18,000 No obvious source of infection but will check chest x-ray, urine has been negative and CT of the abdomen and pelvis is not showing any source of infection Received Solu-Medrol 125 mg IV once after the blood was taken for CBC Could be secondary to stress We will monitor (4) Mild persistent asthma in adult without complication: No acute exacerbation of asthma Recent attack of asthma and finished tapered dose of steroid during second week of this month We will continue current management (5) Vitamin D insufficiency: Has been getting vitamin D as an outpatient (6) Weakness: Has been complaining of weakness for the last 6 to 8 weeks Gradually getting better DVT prophylaxis SCDs Increase ambulation CODE STATUS Full History of Present Illness Chief Complaint: Acute abdominal discomfort with nausea and vomiting and diarrhea since this morning Primary Care Provider: Migue Moody MD He is a 39-year-old male significant past medical history of hypertriglyceridemia, prediabetes, mild persistent asthma, vitamin D deficiency has been complaining of bloated feeling after food with anorexia since April last. He has had recent asthma exacerbation and for that he was treated with tapered dose of steroid including other supportive care. She has been complaining of excessive weakness and tiredness since the attack of asthma. He was never been diagnosed with Covid 19 infection. He has been complaining of dyspeptic symptoms with abdominal bloating after food associated with anorexia since April last. He has been on Prilosec 20 mg once daily since April without any improvement of his abdominal bloating and/or anorexia. He lost 10 pounds since April and the weight remains stable as of now. He denies any abdominal pain except discomfort and bloatedness and this morning he had more abdominal discomfort associated with nausea and he vomited 1 or 2 times. He has had loose stool x2 this morning as well. No fever and/or chills. No cough or sputum and no shortness of breath. Denies any pr oblem with urine and his bowel habit has been normal except 2 episodes of diarrhea this morning. He has been on Prilosec 20 mg daily since April without improvement of his abdominal symptoms. No history of hematemesis and/or melena. Heparin CT scan of the abdomen and pelvis did not show any evidence of acute findings except mild distention of the stomach. His white count was noted to be 18,000 and has been waiting for chest x-ray and ultrasound of the liver and gallbladder to rule out any gallstones/acute cholecystitis. He was admitted to [facility] telemetry unit for continuation of care and possible EGD tomorrow. Allergies Allergy/AdvReac Type Severity Reaction Status Date / Time shellfish derived Allergy Severe Hives Verified 07/13/20 15:45 ibuprofen Allergy Intermediate Hives Verified 07/13/20 15:45 Home Medications Medication Instructions Recorded Confirmed Type albuterol sulfate [Ventolin HFA] 2 puff INHALATION TID PRN 03/15/18 07/13/20 History multivitamin 1 tab PO QAM 03/15/18 07/13/20 History epinephrine 0.3 mg IM Q5M PRN #2 ea 09/14/19 07/13/20 Rx lorazepam 0.5 mg tablet 0.5 mg PO DAILY PRN #10 tab 06/12/20 07/13/20 Rx pantoprazole 20 mg PO DAILY 06/24/20 07/13/20 History Flovent HFA 2 puff INHALATION BID 06/26/20 07/13/20 History levalbuterol HCl [Xopenex] 1.25 mg INHALATION Q8H PRN #75 ml 06/27/20 07/13/20 Rx fexofenadine 180 mg tablet See Rx Instructions PO DAILY 07/02/20 07/13/20 History fluticasone furoate 100 2 inh INHALATION BID ea 07/02/20 07/13/20 History mcg-vilanterol 25 mcg/dose inhalation powder ipratropium bromide 42 mcg (0.06 2 spray INTRANASAL DAILY #15 ml 07/02/20 07/13/20 Rx %) nasal spray lactobacillus combination no.8 3 3,000 mmu cells PO DAILY 07/02/20 07/13/20 History billion cell capsule ergocalciferol (vitamin D2) 1,250 mcg PO WK 07/13/20 07/13/20 History Past Med/Surg History Medical History (Updated 07/13/20 @ 19:51 by Bran Rees DO) Abdominal bloating Acute dyspnea Asthma, mild intermittent Family History Other No pertinent family history in first degree relatives Social History Smoking Status: Never smoker Hx Alcohol Use: No Hx Substance Use: No Preferred Language: [place] Communication Ability: Effective Visual Impairment: No Limitations Hearing Ability: Normal Production Ski Repairer Required: No Beliefs That Will Affect Care: None Current Living Situation: Parent Current Living Situation Comment: parents live with patient current occupational status: 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 Constitutional: well developed, well nourished and + ill appearing Eyes: PERRL, conjunctivae normal, anicteric sclerae ENMT: external ear and nose normal, oropharynx normal Neck: trachea midline, no thyromegaly Respiratory: no respiratory distress Auscultation: lungs clear to auscultation bilaterally Cardiovascular: Rate/Rhythm: regular rate and regular rhythm Heart Sounds: no murmur Extremities: no edema Gastrointestinal (Abdomen): Inspection/Auscultation: + abdomen distended (Soft) and normal bowel sounds Percussion/Palpation: abdomen soft; abdomen nontender, no guarding, abdomen not rigid and no hepatomegaly Musculoskeletal: No acute arthritis in any joint Neurologic: Alert, awake and oriented x3. No focal sensory and/or motor deficit appreciated Psychiatric: A+Ox3, euthymic affect Affect: + anxious affect Lymphatic: no cervical or axillary lymphadenopathy Results & Data Results & Data ([facility]) Vital Signs (Past 12 Hours) Vital Signs Temp Pulse Resp BP Pulse Ox 07/13/20 18:20 106 H 22 96 07/13/20 18:10 106 H 15 97 07/13/20 18:01 105 H 23 98 07/13/20 18:00 105 H 24 148/103 H 98 07/13/20 17:50 98 H 20 99 07/13/20 17:40 98 H 18 99 07/13/20 17:31 104 H 19 100 07/13/20 17:30 96 H 142/89 H 100 07/13/20 17:20 102 H 21 100 07/13/20 17:10 101 H 23 99 07/13/20 17:01 97 H 20 99 07/13/20 17:00 93 H 17 140/95 99 07/13/20 16:56 100 H 17 150/98 H 99 07/13/20 16:55 107 H 16 99 07/13/20 16:40 98 H 20 99 07/13/20 16:31 99 H 19 99 07/13/20 16:30 108 H 18 135/82 99 07/13/20 16:29 99 H 15 98 07/13/20 16:10 101 H 20 98 07/13/20 16:01 97 H 23 97 07/13/20 16:00 102 H 22 137/90 97 07/13/20 15:51 101 H 19 98 07/13/20 15:40 97 H 21 95 07/13/20 15:38 104 H 23 98 07/13/20 15:35 100 H 18 153/87 H 99 07/13/20 15:26 37.3 C 101 H 19 137/101 H 99 Laboratory Results Short CBC 07/13/20 Range/Units 15:33 WBC 18.53 H (4.8-10.8) K/uL Hgb 17.2 (14.0-18.0) g/dL Hct 48.8 (42-52) % Plt Count 325 (130-400) K/uL BMP 07/13/20 15:33 Sodium 136 Potassium 3.7 Chloride 104 Carbon Dioxide 23 BUN 12 Creatinine 0.91 Glucose 104 H Calcium 9.8 Liver Function 07/13/20 Range/Units 15:33 Total Bilirubin 0.6 (0.2-1) mg/dl AST 14 L (15-37) U/L ALT 52 (12-78) U/L Alkaline Phosphatase 74 (45-117) U/L Albumin 4.5 (3.4-5.0) gm/dl Urine 07/13/20 Range/Units Unknown Urine Color Yellow Urine Appearance Clear (Clear) Urine pH 6.5 (4.5-7.5) Ur Specific [place] 1.026 (1.000-1.030) Urine Protein Negative (Negative) Urine Glucose (UA) Negative (Negative) Medications Administered Current Inpatient Medications Pantoprazole Sodium 40 mg/ (Syringe) 10 mls @ 5 mls/min IV BID STEFANY Stop: 08/12/20 20:59 Code Status & VTE Plan VTE Prophylaxis Plan VTE Prophylaxis will be ordered: Yes
[2020-07-13] MEDS ORDERED: SODIUM CHLORIDE 0.9% 1000ML 1,000 ML IV SCH (19:15)
[2020-07-13 19:40] LABS: Bilirubin Direct 0.1 mg/dl (0-0.2)
[2020-07-13 19:54] LABS: Influenza A virus by PCR Negative (Neg); Influenza B virus by PCR Negative (Neg); RSV by PCR Negative (Neg); SARS CoV2 RNA(COVID-19) InHosp NEGATIVE (Negative)
--- NOTE | 2020-07-13 20:46 | Ultrasound Report ---
US liver HISTORY: 39 years-old Male R/O Gall stone/Acute cholesystitis acute nausea and vomiting COMPARISON: CT abdomen and pelvis of same day TECHNIQUE: Multiple real-time sonographic images of the abdominal right upper quadrant were obtained assessing grayscale appearance and color flow FINDINGS: The visualized pancreas appears unremarkable. Hepatic steatosis with fatty sparing near the kalee hep atis. No hepatic mass or intrahepatic biliary ductal dilation. Hepatopedal flow noted within the main portal vein. Questioned trace layering gallbladder sludge. There is no shadowing cholelithiasis, wal l thickening or pericholecystic fluid. Negative sonographic Love's sign. Normal common bile duct, 4 mm. Imaged right kidney is unremarkable without hydronephrosis. IMPRESSION: 1. No cholelithiasis or sonographic evidence of acute cholecystitis. 2. No biliary ductal dilation. 3. Hepatic steatosis. ACT 112: Negative or not required by law. The above report was generated using voice recognition software. It may contain grammatical, syntax o r spelling errors. Electronically signed by: Jm Pozo M.D. 07/13/2020 8:45 PM
[2020-07-13] MEDS ORDERED: D5W AND NSS 1,000 ML IV ONE (22:13)
[2020-07-13] MEDS ORDERED: LORazepam 0.5 MG TAB PO PRN (23:07)
[2020-07-13] MEDS ORDERED: ALBUTEROL HFA 8 GM INHALER INH PRN (23:07)
[2020-07-14] MEDS: PANTOprazole 40 MG in SYRINGE 0 ML IV SCH ×3 (00:10→21:49)
[2020-07-14] MEDS ORDERED: MAGNESIUM SULFATE / D5W 1 GM/100 ML BAG IV ONE (02:20)
[2020-07-14] MEDS ORDERED: ACETAMINOPHEN 325 MG TAB PO PRN (02:23)
[2020-07-14 02:31] LABS: Magnesium 2.3 mg/dl (1.8-2.4)
[2020-07-14] MEDS: FLUTICASONE/VILANTEROL 100/25MCG 14 PUFFS/INHALER INH SCH ×2 (08:42)
[2020-07-14] MEDS: ADVANCED PROBIOTIC 1250 MG CAPSULE PO SCH (08:42)
[2020-07-14] MEDS: IPRATROPIUM BROMIDE NASAL SPRAY 0.06% 15ML SCH (08:42)
[2020-07-14] MEDS: MULTIVITAMIN TAB PO SCH (08:43)
[2020-07-14] MEDS: FEXOFENADINE HCL 180 MG TAB PO SCH ×2 (08:43→10:48)
[2020-07-14 08:45] LABS: Albumin Level 3.5 gm/dl (3.4-5.0); BUN Creatinine Ratio 12.1 (10-20); Bilirubin,Total 0.7 mg/dl (0.2-1); Creatinine Clr Calc Pharmacy 105.3 ml/min; Est GFR (African American) 127.2; Est GFR (Non-African American) 109.8; Magnesium 2.2 mg/dl (1.8-2.4); Total Protein 7.3 gm/dl (6.4-8.2)
[2020-07-14] MEDS ORDERED: FLUTICASONE FUROATE 200MCG 14 PUFFS/INHALER INH SCH (09:00)
--- NOTE | 2020-07-14 09:30 | Gastrointestinal Consultation ---
Date of Consultation July 14, 2020 Assessment & Plan (1) Dyspepsia: (2) Nausea: (3) Vomiting: (4) Abdominal pain: (5) Weight loss: (6) Diarrhea: Pt is a 39 y/o male w dyspepsia, bloating, nausea, weight loss, and intermittent diarrhea in the last 2 months. Cdiff, stool cx negative. CT, liver u/s showed fluid filled stomach, small bowel ? gastroenteritis but no acute inflammatory/obstructive processes. - PPI BID - CL diet - NPO after midnight for EGD/Colonoscopy eval tomorrow. Will discuss case with Dr. Jerardo Hurley Supervising Physician Co-Signing Physician Notes I have personally seen and examined the patient with TONYA Colbert. Her note reflects my exam and findings. I agree with her impression and plan. Given dyspeptic symptoms, weight loss, and altered bowel habits we will arrange upper and lower endoscopy. Patient agrees with plan. Jerardo Hurley M.D. History of Present Illness Reason for Consultation: Dyspepsia, N/V Requesting Physician: Dr. Mitchell Hutchinson Attending Physician: Dr. Jerardo Hurley History of Present Illness Pt is a 39 y/o male w PMHx of hypertriglyceridemia, prediabetes, asthma w recent exacerbation who presented yesterday w c/o increasing weakness, fatigue and abd bloating, discomfort. He has symptoms of dyspepsia, nausea, bloating, poor appetite in the last 2 months. Lost 10 lbs. He had tried Omeprazole and been on low FODMAPs diet w/o much improvement. Hx of Cdiff and he noticed loose stools as well w/o GI bleeding. Cdiff and stool cx on admission were negative. He had been on steroid taper (complete 3 weeks ago) for asthma exacerbation. Besides Flovent, Trang and PPI no new meds, herbal supplements, antibx or NSAIDs. Denies sick contact, travels. Denies hx of abdominal surgeries. Denies ETOH, tobacco, illicit drugs. No family hx of celiac dz, IBD, colorectal ca. Noted increase WBC 18. Normal blood ct, renal and liver functions, lipase, UA. Abdominal imaging w CT abd/pelvis w contrast, liver us showed hepatic steatosis, possible gallbladder sludge and fluid filled stomach and small intestines but otherwise w/o acute inflammatory, obstructive or biliary issues. COVID 19 negative He's never had any endoscopic evaluation before Allergies Allergy/AdvReac Type Severity Reaction Status Date / Time shellfish derived Allergy Severe Hives Verified 07/13/20 15:45 ibuprofen Allergy Intermediate Hives Verified 07/13/20 15:45 Home Medications Medication Instructions Recorded Confirmed Type albuterol sulfate [Ventolin HFA] 2 puff INHALATION TID PRN 03/15/18 07/13/20 History multivitamin 1 tab PO QAM 03/15/18 07/13/20 History epinephrine 0.3 mg IM Q5M PRN #2 ea 09/14/19 07/13/20 Rx lorazepam 0.5 mg tablet 0.5 mg PO DAILY PRN #10 tab 06/12/20 07/13/20 Rx pantoprazole 20 mg PO DAILY 06/24/20 07/13/20 History Flovent HFA 2 puff INHALATION BID 06/26/20 07/13/20 History levalbuterol HCl [Xopenex] 1.25 mg INHALATION Q8H PRN #75 ml 06/27/20 07/13/20 Rx fexofenadine 180 mg tablet See Rx Instructions PO DAILY 07/02/20 07/13/20 History fluticasone furoate 100 2 inh INHALATION BID ea 07/02/20 07/13/20 History mcg-vilanterol 25 mcg/dose inhalation powder ipratropium bromide 42 mcg (0.06 2 spray INTRANASAL DAILY #15 ml 07/02/20 07/13/20 Rx %) nasal spray lactobacillus combination no.8 3 3,000 mmu cells PO DAILY 07/02/20 07/13/20 History billion cell capsule ergocalciferol (vitamin D2) 1,250 mcg PO WK 07/13/20 07/13/20 History Patient History Medical History Abdominal bloating Acute dyspnea Asthma, mild intermittent Family History Other No pertinent family history in first degree relatives Social History Smoking Status: Never smoker Second Hand Exposure: No; Do You Dip or Chew Tobacco: No; Tobacco Cessation Education Requested by Patient: No Hx Alcohol Use: No Hx Substance Use: No Preferred Language: Swazi Communication Ability: Effective Visual Impairment: No Limitations Hearing Ability: Normal Ebd Special Education Teacher Required: No Beliefs That Will Affect Care: None Current Living Situation: Parent Current Living Situation Comment: Parents live with patient current occupational status: 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[employer] Other Information That Helps Us Care for You: No Feels Safe at Home: Yes Safety Concerns: Feels Safe At This Time Assistive Devices: Glasses Review of Systems Review of Systems: All systems reviewed & are unremarkable except as noted in HPI & below Physical Exam Constitutional: WD/WN, vitals as above well groomed, cooperative and comfortable Eyes: PERRL, conjunctivae normal, anicteric sclerae ENMT: external ear and nose normal, oropharynx normal Respiratory: normal respiratory effort, lungs clear to auscultation Cardiovascular: RRR, no murmur, no edema Gastrointestinal (Abdomen): Inspection/Auscultation: normal bowel sounds Percussion/Palpation: + abdomen tender (epigastric ) and abdomen soft Skin: no rashes, warm and dry no jaundice Psychiatric: A+Ox3, euthymic affect Lymphatic: no lymphedema Results & Data ([facility]) Vital Signs (Past 12 Hours) Vital Signs Temp Pulse Pulse Resp BP BP Pulse Ox 07/14/20 07:13 36.7 C 88 16 113/68 97 07/14/20 07:05 88 07/14/20 03:00 36.7 C 92 H 18 100/62 96 07/13/20 23:06 102 H 07/13/20 22:57 36.9 C 101 H 18 128/81 95 07/13/20 22:40 111 H 22 07/13/20 22:30 97 H 17 123/81 96 07/13/20 22:21 100 H 25 H 96 07/13/20 22:10 101 H 22 94 07/13/20 22:00 101 H 18 07/13/20 21:58 108 H 19 07/13/20 21:40 112 H 19 07/13/20 21:30 108 H 25 H 139/93 (1) Abdominal pain Abdominal location: unspecified location Qualified Code(s): R10.9 - Unspecified abdominal pain (2) Vomiting Nausea presence: unspecified Vomiting Intractability: unspecified Vomiting type: unspecified Qualified Code(s): R11.10 - Vomiting, unspecified
[2020-07-14] MEDS ORDERED: Nursing to Pharmacy Communication SCH (11:00)
[2020-07-14] MEDS: D5W AND NSS 1,000 ML IV SCH (11:05)
--- NOTE | 2020-07-14 12:22 | Hospitalist Progress Note ---
Date of Service July 14, 2020 Assessment & Plan (1) Intractable nausea and vomiting: Has been complaining of dyspeptic symptom since April with occasional nausea Has been on omeprazole 20 mg once daily without much improvement of symptoms Associated anorexia Increasing abdominal discomfort with nausea and vomiting this morning CT scan of the abdomen and pelvis did not show any acute findings except mild dilatation of the stomach Appreciate gastroenterology input. EGD/colonoscopy tomorrow. CLD for now. Continue with PPI twice daily. (2) Abdominal bloating: Abdominal bloating and dyspepsia since April Associated with anorexia Loss of weight about 10 pounds since April Ultrasound without any concerning findings. C. difficile is negative. H. Pylori is pending. (3) Leukocytosis: White count seems to be elevated at 18,000. Will obtain CBC today. No obvious source of infection at this point. Received Solu-Medrol 125 mg IV once after the blood was taken for CBC Could be secondary to stress. Continue to monitor. (4) Mild persistent asthma in adult without complication: Stable. Currently on room air. Absence of any shortness of breath or any wheezing. Continue bronchodilators. (5) Vitamin D insufficiency: Has been getting vitamin D as an outpatient (6) Weakness: Has been complaining of weakness for the last 6 to 8 weeks Gradually getting better DVT prophylaxis SCDs Increase ambulation CODE STATUS Full Admission and Anticipated Discharge Date Admission Date: July 13, 2020 Subjective Doing okay this morning. Reports he did have a loose bowel movement overnight. Feeling nauseous earlier but not now. Denies any chest pain or abdominal pain. Denies any fever chills or diaphoresis. Denies any abdominal pain. Denies any dysuria. Review of Systems Review of Systems: All systems reviewed & are unremarkable except as noted in HPI & below Physical Exam Physical Exam: General: A&Ox3 HENT: NCAT, MMM, EOMI Eyes: PERRLA Neck: Supple, normal range of motion CVS: normal rate and rhythm Resp: b/l good breath sounds Abdomen: Soft, ND/NT, +BS Extremities: No c/c/e Neuro: face symmetric, no focal deficit Skin: warm and dry, no rashes/lesions/errythema MSK: normal ROM, no joint swelling/erythema Results & Data Results & Data ([facility]) Vital Signs (Past 12 Hours) Vital Signs Temp Pulse Pulse Resp BP Pulse Ox 07/14/20 11:43 36.8 C 83 18 111/73 100 07/14/20 07:13 36.7 C 88 16 113/68 97 07/14/20 07:05 88 07/14/20 03:00 36.7 C 92 H 18 100/62 96
[2020-07-14 12:48] LABS: Basophils # (auto) 0.01 K/uL (0-0.2); Basophils % (auto) 0.1 %; Eosinophils # (auto) 0.03 K/uL (0-0.5); Eosinophils % (auto) 0.2 %; Hemoglobin 14.9 g/dL (14.0-18.0); Immature Granulocytes # (auto) 0.06 K/uL (0.00-0.02); Immature Granulocytes % (auto) 0.5 %; Lymphocytes # (auto) 1.09 K/uL (1.2-3.4); Mean Corpuscular Hemoglobin 30.2 pg (25-34); Mean Corpuscular Hgb Conc 34.7 g/dL (32-36); Mean Corpuscular Volume 87.2 fL (80-100); Mean Platelet Volume 9.5 fL (7.4-10.4); Monocytes # (auto) 0.87 K/uL (0.11-0.59); Monocytes % (auto) 7.2 %; Neutrophils # (auto) 10.06 K/uL (1.4-6.5); Platelet Count 303 K/uL (130-400); RDW Coefficient of Variation 13.6 % (11.5-14.5); RDW Standard Deviation 43.1 fL (36.4-46.3); Red Blood Count 4.93 M/uL (4.7-6.1); White Blood Count 12.12 K/uL (4.8-10.8)
[2020-07-14] MEDS ORDERED: FLUTICASONE HFA 110MCG INHALER INH SCH (13:00)
[2020-07-14] MEDS ORDERED: bisacodyL 5 MG TABEC PO ONE (17:00)
[2020-07-14] MEDS ORDERED: POLYETHYLENE (MIRALAX) 17 GM PACK PO ONE ×2 (17:00→21:00)
[2020-07-14] MEDS ORDERED: FEXOFENADINE HCL 180 MG TAB PO SCH (21:00)
[2020-07-14] MEDS: FLUTICASONE 110 MCG INH SCH (21:49)
[2020-07-15] MEDS: D5W AND NSS 1,000 ML IV SCH (00:54)
[2020-07-15] MEDS: ADVANCED PROBIOTIC 1250 MG CAPSULE PO SCH (08:47)
[2020-07-15] MEDS: MULTIVITAMIN TAB PO SCH (08:47)
[2020-07-15] MEDS: PANTOprazole 40 MG in SYRINGE 0 ML IV SCH (08:47)
[2020-07-15] MEDS: FLUTICASONE 110 MCG INH SCH (08:50)
[2020-07-15] MEDS: IPRATROPIUM BROMIDE NASAL SPRAY 0.06% 15ML SCH (08:57)
--- NOTE | 2020-07-15 09:08 | Hospitalist Progress Note ---
Date of Service July 15, 2020 Assessment & Plan (1) Intractable nausea and vomiting: Has been complaining of dyspeptic symptom since April with occasional nausea Has been on omeprazole 20 mg once daily without much improvement of symptoms Associated with poor appetite anorexia Admitted with abdominal pain, intractable nausea vomiting, diarrhea Symptoms has improved, stool C. difficile negative, CT scan of the abdomen and pelvis did not show any acute findings except mild dilatation of the stomach and small bowel suggestive of possible acute gastroenteritis Liver ultrasound shows hepatic steatosis, minimal gallbladder sludge, no biliary ductal dilatation WBC count improved after IV hydration from 80,000-12,000, ordered for stat labs today Appreciate gastroenterology input. Given chronic symptoms of poor appetite, weight loss, plan for EGD/colonoscopy tomorrow. Continued with IV PPI twice daily, will be changed to p.o. once endoscopic procedures done (2) Leukocytosis: White count seems to be elevated at 18,000 Improved to 12,000, ordered for repeat lab today No obvious source of infection at this point. Possible secondary to dehydration, patient received IV steroids in ER on admission for concern of shortness of breath, asthma exacerbation Does not have any fever or chills, GI symptoms has improved Stool C. difficile negative Continue to monitor (3) Mild persistent asthma in adult without complication: Stable. Does not have any wheeze shortness of breath or cough, no hypoxia Continue outpatient inhalers, ordered for incentive spirometry Does not need any steroid treatment as there is no asthma exacerbation or wheeze present (4) Vitamin D insufficiency: Continue vitamin D as an outpatient (5) Weakness: Has been complaining of weakness for the last 6 to 8 weeks Possibly combination of chronic asthma exacerbation, was on prolonged prednisone taper Admitted with nausea vomiting diarrhea abdominal pain GI symptoms has improved Patient reports improvement of symptoms, independent in ambulation and ADLs DVT prophylaxis SCDs Increase ambulation CODE STATUS Full Disposition: Expected to be discharged home in next 24-48 hours when medically stable Update given to patient's sister and daughter over phone Admission and Anticipated Discharge Date Admission Date: July 14, 2020 Subjective Patient seen and examined at bedside, Reports abdominal pain, nausea has resolved, Head small diarrhea this morning, patient was receiving bowel prep overnight for colonoscopy today. No shortness of breath no cough, no fever or chills Feels much better today Review of Systems Review of Systems: All systems reviewed & are unremarkable except as noted in Subjective Physical Exam Constitutional: WD/WN, vitals as above Eyes: PERRL, conjunctivae normal, anicteric sclerae ENMT: external ear and nose normal, oropharynx normal Neck: trachea midline, no thyromegaly Respiratory: normal respiratory effort, lungs clear to auscultation no cough Auscultation: no wheezes Cardiovascular: RRR, no murmur, no edema Gastrointestinal (Abdomen): Inspection/Auscultation: normal bowel sounds Percussion/Palpation: abdomen soft; abdomen nontender Musculoskeletal: no cyanosis or clubbing, extremities motor strength 5/5 Skin: no rashes, warm and dry Neurologic: PERRL, EOMI, accommodation nl, no face palsy, no dysarthria Psychiatric: A+Ox3, euthymic affect Results & Data Results & Data ([facility]) Vital Signs (Past 12 Hours) Vital Signs Temp Pulse Pulse Resp BP Pulse Ox 07/15/20 07:23 36.7 C 64 16 125/73 99 07/15/20 03:59 36.6 C 62 16 93/53 L 97 07/15/20 02:08 64 07/14/20 23:25 36.5 C 63 18 128/82 98
--- NOTE | 2020-07-15 09:16 | Gastroenterology Progress Note ---
Date of Service July 15, 2020 Assessment & Plan (1) Dyspepsia: (2) Nausea: (3) Vomiting: (4) Abdominal pain: (5) Weight loss: (6) Diarrhea: Pt is a 39 y/o male w dyspepsia, bloating, nausea, weight loss, and intermittent diarrhea in the last [address], liver u/s showed fluid filled stomach, small bowel ? gastroenteritis but no acute inflammatory/obstructive processes. - PPI BID - NPO for EGD/Colonoscopy eval today - F/U stool cx results Admission and Anticipated Discharge Date Admission Date: July 14, 2020 Supervising Physician Co-Signing Physician Notes I have personally seen and examined the patient with TONYA Colbert. Her note reflects my exam and findings. I agree with her impression and plan. Symptoms slightly improved. Awaiting EGD/Colonoscopy. Jerardo Hurley M.D. Subjective Pt completed bowel prep, NPO currently for planned EGD and colonoscopy He is having slight abd bloating, no n/v, stools were yellowish but clear Review of Systems Review of Systems: All systems reviewed & are unremarkable except as noted in HPI & below Physical Exam Constitutional: WD/WN, vitals as above well groomed, cooperative and comfortable Eyes: PERRL, conjunctivae normal, anicteric sclerae ENMT: external ear and nose normal, oropharynx normal Respiratory: normal respiratory effort, lungs clear to auscultation Cardiovascular: RRR, no murmur, no edema Gastrointestinal (Abdomen): normal bowel sounds, soft, nontender, no hepatosplenomegaly Skin: no rashes, warm and dry no jaundice Psychiatric: A+Ox3, euthymic affect Lymphatic: no lymphedema Results & Data ([facility]) Vital Signs (Past 12 Hours) Vital Signs Temp Pulse Pulse Resp BP Pulse Ox 07/15/20 07:23 36.7 C 64 16 125/73 99 07/15/20 03:59 36.6 C 62 16 93/53 L 97 07/15/20 02:08 64 07/14/20 23:25 36.5 C 63 18 128/82 98 (1) Abdominal pain Abdominal location: unspecified location Qualified Code(s): R10.9 - Unspecified abdominal pain (2) Vomiting Nausea presence: unspecified Vomiting Intractability: unspecified Vomiting type: unspecified Qualified Code(s): R11.10 - Vomiting, unspecified
[2020-07-15 09:20] LABS: Basophils # (auto) 0.01 K/uL (0-0.2); Basophils % (auto) 0.2 %; Hematocrit (blood only) 42.1 % (42-52); Hemoglobin 14.9 g/dL (14.0-18.0); Immature Granulocytes # (auto) 0.04 K/uL (0.00-0.02); Immature Granulocytes % (auto) 0.6 %; Lymphocytes # (auto) 2.03 K/uL (1.2-3.4); Lymphocytes % (auto) 30.5 %; Mean Corpuscular Hemoglobin 30.7 pg (25-34); Mean Corpuscular Volume 86.6 fL (80-100); Mean Platelet Volume 9.3 fL (7.4-10.4); Monocytes # (auto) 0.68 K/uL (0.11-0.59); Monocytes % (auto) 10.2 %; Neutrophils # (auto) 3.69 K/uL (1.4-6.5); Neutrophils % (auto) 55.5 %; Platelet Count 314 K/uL (130-400); RDW Coefficient of Variation 13.7 % (11.5-14.5); RDW Standard Deviation 43.6 fL (36.4-46.3); Red Blood Count 4.86 M/uL (4.7-6.1); White Blood Count 6.65 K/uL (4.8-10.8)
[2020-07-15 09:25] LABS: Mean Corpuscular Hgb Conc 35.4 g/dL (32-36)
[2020-07-15 09:39] LABS: Albumin Level 3.6 gm/dl (3.4-5.0); Calcium 9.3 mg/dl (8.5-10.1); Creatinine Clr Calc Pharmacy 110.5 ml/min; Est GFR (African American) 129.8; Potassium 3.6 mmol/L (3.5-5.1)
[2020-07-15 09:42] LABS: Bilirubin,Total 0.6 mg/dl (0.2-1); Globulin 3.7 gm/dl (2.5-4.0); Total Protein 7.3 gm/dl (6.4-8.2)
[2020-07-15] MEDS ORDERED: ATROPINE SULFATE 0.1 MG/ML 10ML SYR IV PRN (10:14)
[2020-07-15] MEDS ORDERED: ePHEDrine sulfate 50 MG/ML AMP IV PRN (10:14)
--- NOTE | 2020-07-15 10:14 | Anesthesiology Consultation ---
Date of Service July 15, 2020 Assessment & Plan ASA ASA2 Proposed Anesthesia Anesthesia Type: MAC Risk / Benefits Reviewed With: PT / POA / Parent / Guardian, Accepts Plan and Informed Consent Obtained History Surgery Operation Date: 07/15/20 16:30 Proposed Procedures p Colonoscopy EGD Dr Xavi Hurley MD Height/Weight Height: 5 ft 6 in Weight: 72.8 kg Allergies Allergy/AdvReac Type Severity Reaction Status Date / Time shellfish derived Allergy Severe Hives Verified 07/13/20 15:45 ibuprofen Allergy Intermediate Hives Verified 07/13/20 15:45 Medications Home Medications Medication Instructions Recorded Confirmed Last Taken albuterol sulfate [Ventolin HFA] 2 puff INHALATION TID PRN 03/15/18 07/13/20 06/24/20 multivitamin 1 tab PO QAM 03/15/18 07/13/20 07/13/20 epinephrine 0.3 mg IM Q5M PRN #2 ea 09/14/19 07/13/20 Unknown lorazepam 0.5 mg tablet 0.5 mg PO DAILY PRN #10 tab 06/12/20 07/13/20 06/24/20 pantoprazole 20 mg PO DAILY 06/24/20 07/13/20 07/13/20 Flovent HFA 2 puff INHALATION BID 06/26/20 07/13/20 07/13/20 08:00 levalbuterol HCl [Xopenex] 1.25 mg INHALATION Q8H PRN #75 ml 06/27/20 07/13/20 Unknown fexofenadine 180 mg tablet See Rx Instructions PO DAILY 07/02/20 07/13/20 07/13/20 ipratropium bromide 42 mcg (0.06 2 spray INTRANASAL DAILY #15 ml 07/02/20 07/13/20 07/13/20 %) nasal spray lactobacillus combination no.8 3 3,000 mmu cells PO DAILY 07/02/20 07/13/20 07/13/20 billion cell capsule ergocalciferol (vitamin D2) 1,250 mcg PO WK 07/13/20 07/13/20 Unknown fluticasone furoate 100 1 inh INHALATION DAILY ea 07/14/20 Unknown mcg-vilanterol 25 mcg/dose inhalation powder Active Medications Generic Name Dose Route Start Last Admin Trade Name Freq PRN Reason Stop Dose Admin Acetaminophen 325 mg 07/14/20 02:23 07/14/20 16:24 Acetaminophen 325 Mg Tab PO 08/13/20 02:22 325 mg Q6H PRN Administration Mild Pain Fexofenadine HCl 90 mg 07/14/20 21:00 07/14/20 21:48 Fexofenadine Hcl 180 Mg Tab PO 08/13/20 08:59 90 mg HS STEFANY Administration Fluticasone Propionate 2 puffs 07/14/20 21:00 07/15/20 08:50 Pt's Own Med: Fluticasone Hfa 110mcg Inhaler INH 08/13/20 20:59 Not Given BID STEFANY Protocol Pantoprazole Sodium 40 mg/ 10 mls @ 5 mls/min 07/13/20 23:30 07/15/20 08:47 Syringe IV 08/12/20 23:29 5 mls/min BID STEFANY Administration Dextrose/Sodium Chloride 1,000 mls @ 75 mls/hr 07/14/20 11:30 07/15/20 00:54 D5w And Nss IV 08/13/20 11:29 75 mls/hr .[id number] STEFANY Administration Ipratropium Plaza 2 sprays 07/14/20 09:00 07/15/20 08:57 Ipr[address] Nasal Dime Box 0.06% 15ml NA 08/13/20 08:59 Not Given DAILY STEFANY Lactobacillus Acidoph/Casei/Rhamnos 2 cap 07/14/20 09:00 07/15/20 08:47 Advanced Probiotic 1250 Mg Capsule PO 08/13/20 08:59 2 cap DAILY STEFANY Administration Multivitamins 1 tab 07/14/20 09:00 07/15/20 08:47 Multivitamin Tab PO 08/13/20 08:59 1 tab QAM STEFANY Administration NPO Date Last Intake of Fluids: 07/14/20 Time Last Intake of Fluids: 23:55 Date Last Intake of Solids: 07/13/20 Past Medical History Medical History Abdominal bloating Acute dyspnea Asthma, mild intermittent Exercise / Class Metabolic Activity II 4-5 Yardwork/Stairs/Walk up hill Past Family History Family History Other No pertinent family history in first degree relatives Past Anesthesia History No Hx of Anesthesia Complications and No Family Hx of Anesthesia Complications History of PONV No Hx of PONV and No Hx of Motion Sickness Social History Smoking Status: Never smoker Do You Dip or Chew Tobacco: No Hx Alcohol Use: No Hx Substance Use: No substance use type: does not use Review of Systems denies fever/cough/ colds/ chest pain/ SOB/ TENA denies TENA Physical Exam Vital Signs Last Vital Signs Temp 37.2 C 07/15/20 10:03 Pulse 75 07/15/20 10:03 Resp 16 07/15/20 10:03 BP 141/90 H 07/15/20 10:03 Pulse Ox 99 07/15/20 10:03 ENMT Mouth: no TMJ abnormality and no dentition abnormality Thyromental Distance: > or= 3.5 Finger Breadths Mallampati Class: II Neck neck extension not limited Respiratory normal respiratory effort; no respiratory distress Auscultation: lungs clear to auscultation bilaterally Cardiovascular Rate/Rhythm: regular rate and regular rhythm Neurologic moves all extremities Psychiatric Orientation: alert and oriented x 3 Testing Laboratory Results 07/15/20 09:07 07/15/20 09:07 Urine Color Yellow 07/13/20 Unknown Urine Appearance Clear (Clear) 07/13/20 Unknown Urine pH 6.5 (4.5-7.5) 07/13/20 Unknown Ur Specific [place] 1.026 (1.000-1.030) 07/13/20 Unknown Urine Protein Negative (Negative) 07/13/20 Unknown Urine Glucose (UA) Negative (Negative) 07/13/20 Unknown Urine Ketones Negative (Negative) 07/13/20 Unknown Urine Nitrite Negative (Negative) 07/13/20 Unknown Ur Leukocyte Esterase Negative (Negative) 07/13/20 Unknown
--- NOTE | 2020-07-15 10:19 | History & Physical Report ---
Date of Service July 15, 2020 Assessment & Plan (1) Upper abdominal pain: stable for EGD (2) Altered bowel habits: stable for colonoscopy Admission and Anticipated Discharge Date Admission Date: July 14, 2020 History of Present Illness Chief Complaint: abdominal pain, weight loss, and altered bowel habits. Primary Care Provider: Migue Moody MD Pt with upper GI symptoms and altered bowel habits for EGD/Colonoscopy Allergies Allergy/AdvReac Type Severity Reaction Status Date / Time shellfish derived Allergy Severe Hives Verified 07/13/20 15:45 ibuprofen Allergy Intermediate Hives Verified 07/13/20 15:45 Home Medications Medication Instructions Recorded Confirmed Type albuterol sulfate [Ventolin HFA] 2 puff INHALATION TID PRN 03/15/18 07/13/20 History multivitamin 1 tab PO QAM 03/15/18 07/13/20 History epinephrine 0.3 mg IM Q5M PRN #2 ea 09/14/19 07/13/20 Rx lorazepam 0.5 mg tablet 0.5 mg PO DAILY PRN #10 tab 06/12/20 07/13/20 Rx pantoprazole 20 mg PO DAILY 06/24/20 07/13/20 History Flovent HFA 2 puff INHALATION BID 06/26/20 07/13/20 History levalbuterol HCl [Xopenex] 1.25 mg INHALATION Q8H PRN #75 ml 06/27/20 07/13/20 Rx fexofenadine 180 mg tablet See Rx Instructions PO DAILY 07/02/20 07/13/20 History ipratropium bromide 42 mcg (0.06 2 spray INTRANASAL DAILY #15 ml 07/02/20 07/13/20 Rx %) nasal spray lactobacillus combination no.8 3 3,000 mmu cells PO DAILY 07/02/20 07/13/20 History billion cell capsule ergocalciferol (vitamin D2) 1,250 mcg PO WK 07/13/20 07/13/20 History fluticasone furoate 100 1 inh INHALATION DAILY ea 07/14/20 History mcg-vilanterol 25 mcg/dose inhalation powder Past Med/Surg History Medical History Abdominal bloating Acute dyspnea Asthma, mild intermittent Family History Other No pertinent family history in first degree relatives Social History Smoking Status: Never smoker Second Hand Exposure: No; Do You Dip or Chew Tobacco: No; Tobacco Cessation Education Requested by Patient: No Hx Alcohol Use: No Hx Substance Use: No Preferred Language: Amharic Communication Ability: Effective Visual Impairment: No Limitations Hearing Ability: Normal [employer] Architect Required: No Beliefs That Will Affect Care: None Current Living Situation: Parent Current Living Situation Comment: Parents live with patient current occupational status: 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[employer] Other Information That Helps Us Care for You: No Feels Safe at Home: Yes Safety Concerns: Feels Safe At This Time Assistive Devices: Glasses Physical Exam Constitutional: WD/WN, vitals as above Respiratory: normal respiratory effort, lungs clear to auscultation Cardiovascular: RRR, no murmur, no edema Gastrointestinal (Abdomen): normal bowel sounds, soft, nontender, no hepatosplenomegaly Results & Data ([facility]) Vital Signs (Past 12 Hours) Vital Signs Temp Pulse Pulse Resp BP Pulse Ox 07/15/20 10:03 37.2 C 75 16 141/90 H 99 07/15/20 07:23 36.7 C 64 16 125/73 99 07/15/20 03:59 36.6 C 62 16 93/53 L 97 07/15/20 02:08 64 07/14/20 23:25 36.5 C 63 18 128/82 98 Code Status & VTE Plan VTE Prophylaxis Plan VTE Prophylaxis will be ordered: Yes
[2020-07-15] MEDS ORDERED: LIDOCAINE HCL 2% 2 ML VIAL/AMP(20MG/ML) INFIL ONE (10:24)
[2020-07-15] MEDS ORDERED: PROPOFOL IV EMULSION 10 MG/ML 20 ML VIAL IV ONE ×2 (10:24)
--- NOTE | 2020-07-15 11:00 | GI REPORT ---
Patient Name: Presley Alford Procedure Date: 07/15/2020 10:11 AM Date of : 1980 Admit Type: Inpatient Age: 39 Gender: Male Attending MD: Jerardo Hurley MD Procedure: Upper GI endoscopy Providers: Jerardo Hurley MD Referring MD: Adrianne Mcnally Indications: Epigastric abdominal pain, Weight loss Medicines: See the Anesthesia note for documentation of the administered medications Complications: No immediate complications. Estimated Blood Loss: Estimated blood loss was minimal. Procedure: Pre-Anesthesia Assessment: - Prior to the procedure, a History and Physical was performed, and patient medications, allergies and sensitivities were reviewed. The patient's tolerance of previous anesthesia was reviewed. - The risks and benefits of the procedure and the sedation options and risks were discussed with the patient. All questions were answered and informed consent was obtained. - Patient identification and proposed procedure were verified prior to the procedure by the physician and the nurse. The procedure was verified in the pre-procedure area. - Pre-procedure physical examination revealed no contraindications to sedation. - After reviewing the risks and benefits, the patient was deemed in satisfactory condition to undergo the procedure. After obtaining informed consent, the endoscope was passed under direct vision. Throughout the procedure, the patient's blood pressure, pulse, and oxygen saturations were monitored continuously. The Endoscope was introduced through the mouth, and advanced to the fourth part of the duodenum. Small bowel enteroscopy was deemed necessary due to symptoms concerning for small bowel disease. The upper GI endoscopy was accomplished without difficulty. The patient tolerated the procedure well. Findings: The esophagus was normal. The entire examined stomach was normal. Biopsies were taken with a cold forceps for Helicobacter pylori testing. Verification of patient identification for the specimen was done by the physician and nurse using the patient's name and medical record number. Estimated blood loss was minimal. The duodenum to the fourth portion was normal. Biopsies for histology were taken with a cold forceps for evaluation of celiac disease. Verification of patient identification for the specimen was done by the physician and nurse using the patient's name and medical record number. Estimated blood loss was minimal. The cardia and gastric fundus were normal on retroflexion. Impression: - Normal esophagus. - Normal stomach. Biopsied. - Normal duodenum to the fourth portion. Biopsied. Recommendation: - Await pathology results. - Perform a colonoscopy today. Jerardo Hurley M.D. Jerardo Hurley MD 07/15/2020 11:00:17 AM This report has been signed electronically. Note Initiated On: 07/15/2020 10:11 AM Number of Addenda: 0 I attest to the content of the Intraoperative Record and orders documented therein, exceptions below {[id number]}
--- NOTE | 2020-07-15 11:02 | GI REPORT ---
Patient Name: Presley Alford Procedure Date: 07/15/2020 10:35 AM Date of : 1980 Admit Type: Inpatient Age: 39 Gender: Male Attending MD: Jerardo Hurley MD Procedure: Colonoscopy Providers: Jerardo Hurley MD Referring MD: Adrianne Mcnally Indications: Change in bowel habits, Weight loss Medicines: See the Anesthesia note for documentation of the administered medications Complications: No immediate complications. Estimated Blood Loss: Estimated blood loss was minimal. Procedure: Pre-Anesthesia Assessment: - See the other procedure note for documentation of the pre-procedure assessment. After I obtained informed consent, the scope was passed under direct vision. Throughout the procedure, the patient's blood pressure, pulse, and oxygen saturations were monitored continuously. The Scope was introduced through the anus and advanced to the terminal ileum, with identification of the appendiceal orifice and IC valve. The colonoscopy was performed without difficulty. The patient tolerated the procedure well. The quality of the bowel preparation was good. Findings: The perianal and digital rectal examinations were normal. The terminal ileum appeared normal. The colon (entire examined portion) appeared normal. Biopsies for histology were taken with a cold forceps from the entire colon for evaluation of microscopic colitis. Verification of patient identification for the specimen was done by the physician and nurse using the patient's name and medical record number. Estimated blood loss was minimal. The exam was otherwise without abnormality on direct and retroflexion views. Impression: - The examined portion of the ileum was normal. - The entire examined colon is normal. Biopsied. - The examination was otherwise normal on direct and retroflexion views. - No evidence of IBD. Recommendation: - Await pathology results. - Return patient to hospital mock for ongoing care. Jerardo Hurley M.D. Jerardo Hurley MD 07/15/2020 11:02:25 AM This report has been signed electronically. Note Initiated On: 07/15/2020 10:35 AM Number of Addenda: 0 I attest to the content of the Intraoperative Record and orders documented therein, exceptions below {[id number]}
--- NOTE | 2020-07-15 11:10 | Communication Note ---
Date of Service: July 15, 2020 Patient's colonoscopy/EGD results reviewed: Normal study EGD shows normal esophagus, normal stomach, Colonoscopy: Normal terminal ileum, no evidence of inflammatory bowel disease, biopsy taken for celiac disease We will discussed with GI to advance diet, Plan to discharge home later today if able to tolerate diet Pauline Gonzalez MD
--- NOTE | 2020-07-15 11:12 | Anesthesiology Progress Note ---
Date of Service July 15, 2020 Anesthesia Post Procedure Vital Signs Vital Signs: Temp Pulse Pulse Resp BP Pulse Ox 07/15/20 10:53 60 16 90/54 L 96 07/15/20 10:03 37.2 C 75 16 141/90 H 99 07/15/20 07:23 36.7 C 64 16 125/73 99 07/15/20 03:59 36.6 C 62 16 93/53 L 97 07/15/20 02:08 64 07/14/20 23:25 36.5 C 63 18 128/82 98 07/14/20 18:39 36.7 C 70 18 118/78 99 07/14/20 15:27 36.8 C 76 18 113/71 97 07/14/20 14:48 69 07/14/20 11:43 36.8 C 83 18 111/73 100 Transfer of Care Handoff Completed per policy Notes Mental Status: alert / awake / arousable and participated in evaluation Patient Amnestic to Procedure: Yes Nausea / Vomiting: adequately controlled Pain: adequately controlled Airway Patency, RR, SpO2: stable & adequate BP & HR: stable & adequate Hydration State: stable & adequate Anesthetic Complications: no major complications apparent and Pt Satisfied with anesthetic care
--- NOTE | 2020-07-15 15:32 | Discharge Summary ---
Date of Service July 15, 2020 Admission HPI Per Admitting Provider Pt with upper GI symptoms and altered bowel habits for EGD/Colonoscopy Principal Diagnosis Acute Gastroenteritis -resolved Nausea/vomiting/abdominal pain: Resolved Leukocytosis possible secondary to dehydration, resolved Discharge Exam Constitutional WD/WN, vitals as above Eyes PERRL, conjunctivae normal, anicteric sclerae ENMT external ear and nose normal, oropharynx normal Neck trachea midline, no thyromegaly Respiratory normal respiratory effort, lungs clear to auscultation no cough Auscultation: no wheezes Cardiovascular RRR, no murmur, no edema Gastrointestinal (Abdomen) Inspection/Auscultation: normal bowel sounds Percussion/Palpation: abdomen soft; abdomen nontender Musculoskeletal no cyanosis or clubbing, extremities motor strength 5/5 Skin no rashes, warm and dry Neurologic PERRL, EOMI, accommodation nl, no face palsy, no dysarthria Psychiatric A+Ox3, euthymic affect Discharge Data Allergies Allergy/AdvReac Type Severity Reaction Status Date / Time shellfish derived Allergy Severe Hives Verified 07/13/20 15:45 ibuprofen Allergy Intermediate Hives Verified 07/13/20 15:45 Consultations 07/13/20 18:13 ED Decision to Admit Stat 07/13/20 18:45 Consult Gastroenterology Routine Procedures Performed Operation Date: 07/15/20 16:30 Actual Procedures s EGD Biopsy Cytology - Jerardo Hurley MD p Colonoscopy Biopsy Cytology - Jerardo Hurley MD Ordered Studies 07/13/20 15:55 CT abd pelvis IV con only Stat 07/13/20 18:30 US liver Stat Hospital Course (1) Intractable nausea and vomiting: Has been complaining of dyspeptic symptom since April with occasional nausea Has been on omeprazole 20 mg once daily without much improvement of symptoms Associated with poor appetite anorexia Admitted with abdominal pain, intractable nausea vomiting, diarrhea Symptoms has improved, stool C. difficile negative, CT scan of the abdomen and pelvis did not show any acute findings except mild dilatation of the stomach and small bowel suggestive of possible acute gastroenteritis Liver ultrasound shows hepatic steatosis, minimal gallbladder sludge, no biliary ductal dilatation Appreciate gastroenterology input. EGD/colonoscopy -normal study (2) Leukocytosis: resolved , normal white count 6K today (3) Mild persistent asthma in adult without complication: Stable. Does not have any wheeze shortness of breath or cough, no hypoxia Continue outpatient inhalers, ordered for incentive spirometry Does not need any steroid treatment as there is no asthma exacerbation or wheeze present (4) Vitamin D insufficiency: Continue vitamin D as an outpatient (5) Weakness: Has been complaining of weakness for the last 6 to 8 weeks Possibly combination of chronic asthma exacerbation, was on prolonged prednisone taper Admitted with nausea vomiting diarrhea abdominal pain GI symptoms has improved Patient reports improvement of symptoms, independent in ambulation and ADLs DVT prophylaxis SCDs Increase ambulation CODE STATUS Full Disposition: pt tolerated diet after returning for EGD and colonoscopy stable to be discharged home today Total Time Total Time Spent Total Time Spent (In Minutes): 35 mins Total Time Includes: Examination of the Patient, Discharge Planning and Medication Reconciliation Discharge Plan Discharge Items Patient Disposition: Home - Self-Care Reason For Visit: INTRACTABLE NAUSE WITH VOMITING, ABDOMINAL BLOATIN Discharge Diagnosis: Acute Gastroenteritis -resolved Nausea/vomiting/abdominal pain: Resolved Leukocytosis possible secondary to dehydration, resolved Activity: Resume your previous activity Non-emergency contact: Primary Care Provider Call non-emergency contact if: you have any medication questions Follow-up/Referrals: Migue Moody MD [Primary Care Provider] - 07/20/20 10:40 am Diet: Regular Diet Comment: stay on low fiber diet for one week , avoid dairy products for same period Addtl Attending Provider Instructions: Please take all medications as instructed on discharge list below. Hospital follow-up with your primary care physician Dr. Tovar on 07/20/2020 At 10:40 AM Acute GI symptoms can sometimes makes you transiently lactose intolerant , try to avoid dairy or buy lactose free milk , yogurt for 1 week Fiber content in your diet can cause bloating and discomfort after an acute gastroenteritis , stay on low fiber diet for a week , Continue to take probiotics Please call if you have any questions or problems. You can reach a [facility] hospitalist on duty at [facility] 24 hours a day by calling [phone] Pending Studies at Discharge: No Stand-Alone Forms: My [facility] [employer], Smoking Cessation Medications and DC Order Prescriptions: Continued Breo Ellipta 100-25 mcg/dose blister with device 1 inh inhalation DAILY RF: 0 fexofenadine [Trang Allergy] 180 mg tablet See Rx Instructions PO DAILY RF: 0 Adult Probiotic 3 billion cell capsule 3,000 mmu cells PO DAILY RF: 0 ipratropium bromide 42 mcg (0.06 %) spray,non-aerosol 2 spray intranasal DAILY Qty: 15 RF: 11 lorazepam [Ativan] 0.5 mg tablet 0.5 mg PO DAILY PRN (Reason: anxiety) Qty: 10 RF: 0 multivitamin Tablet 1 tab PO QAM RF: 0 albuterol sulfate [Ventolin HFA] 90 mcg/actuation Hfa Aerosol Inhaler 2 puff INHALATION TID PRN (Reason: Shortness Of Breath Or Wheezing) RF: 0 epinephrine 0.3 mg/0.3 mL auto-injector 0.3 mg IM Q5M PRN (Reason: Allergic Reaction) Qty: 2 RF: 0 pantoprazole 20 mg Tablet,Delayed Release (Dr/Ec) 20 mg PO DAILY RF: 0 Flovent HFA 110 mcg/actuation HFA aerosol inhaler 2 puff INHALATION BID RF: 0 levalbuterol HCl [Xopenex] 1.25 mg/3 mL solution for nebulization 1.25 mg inhalation Q8H PRN (Reason: shortness of breath or wheezing) Qty: 75 RF: 0 ergocalciferol (vitamin D2) 1,250 mcg (50,000 unit) capsule 1,250 mcg PO WK RF: 0 Discharge Orders: Discharge Order (Routine); Ordered 07/15/20 Ordered By: Pauline Reeves/Other Patient Handouts: Low-Fiber Diet, Tips for Lactose Intolerance Admission Data Admit Date/Time: 07/14/20 12:15 Attending Provider: Pauline Gonzalez Admit Provider: Adrianne Joseph Primary Care Provider: Migue Moody Other Providers: Mitchell Hutchinson ; Adrianne Joseph ; Evan Redding ; Leela Gaytan ; Graciela Gaston ; Justine Floyd ; Anupam Arevalo ; Cristina Izaguirre ; Cameron Cool ; Chente Melendez ; Jerardo Hurley ; Alexandra Rios ; Jessica Ghotra ; Vanna Henry ; Sanjnaa Hernandez ; Abraham Gomez
[2020-07-15] MEDS ORDERED: DICYCLOMINE HCL 10 MG CAP PO SCH (21:00)
== END 2020-07-15 17:45 | disposition home or self-care (01) | DRG 392 ==
LOC: ED 15:18 → 2W 15:18 → SUATTDRO 21:01 → 2W 22:57 → SUATTDRO 07-14 12:15

== ENCOUNTER 2021-09-23 06:27 | Inpatient (IN) ==
[2021-09-23] MEDS ORDERED: DOXYCYCLINE HYCLATE 100 MG in DEXTROSE 5% 100 ML IV STA (07:08)
--- NOTE | 2021-09-23 07:14 | Emergency Department Note ---
Impression & Plan Cellulitis of fourth toe, left, Cellulitis of foot, left ED Provider Note Provider: Saturnino Matos MD DATE OF SERVICE: 09/23/2021 CHIEF COMPLAINT: Left toe pain and infection HISTORY OF PRESENT ILLNESS: Patient is a 41-year-old gentleman history of asthma presenting here today with concerns for increased pain in his left toe with some chills overnight. Was evaluated here yesterday evening at the onset of some redness and pain in his left fourth toe when he awoke yesterday morning. 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 No trauma reported. Denies fever but states some chills around 2 AM. Row then took some additional Tylenol around 6 AM and the pain has improved a little bit but was having difficulty working out when he awoke. Patient states he took some cephalexin this morning and was given dose ceftriaxone last night. Patient states he is unsure if the redness is that worse but it is quite painful. Distant history several years ago of similar infection improved with oral antibiotics. Denies history of surgery on the foot. REVIEW OF SYSTEMS: A total of 10 review of systems was obtained and negative except as stated above in the HPI. PAST MEDICAL HISTORY: As noted above MEDICATIONS: Reviewed home medications SOCIAL HISTORY: Works as a hospitalist PHYSICAL EXAM: GENERAL: alert and oriented in no acute distress on stretcher Head: normocephalic and atraumatic EYES: No injection, discharge or icterus. NECK: Trachea midline. ENT: Mucous membranes pink and moist. LUNGS: Airway patent. No retractions or tachypnea HEART: Regular rate and rhythm. SKIN: Acyanotic, warm, dry, without rashes EXTREMITIES: Without swelling, tenderness or deformity except for redness of the distal left fourth toe with some erythema extending over the dorsum of foot to the ankle. No crepitus. NEUROLOGICAL: No focal deficits. No aphasia. No facial droop or slurred speech. Normal strength and tone in the left foot limited due to pain in the left fourth toe movement here. Sensation to gross touch normal in the left foot Ambulatory. Patient's laboratory studies and imaging reviewed. Differential includes Cellulitis, abscess, MRSA infection, DVT, necrotizing fasciitis, dermatitis, drug eruption, allergic reaction, as well as other pathologies. IMPRESSION/MEDICAL DECISION MAKING: Patient given a dose of ceftriaxone last night with the onset of erythema in the left fourth toe. Reports some chills but no fever overnight. No reported history of MRSA. X-ray obtained last night. Obtained blood cultures as well as labs and inflammatory markers. Given a dose of IV doxycycline for increased MRSA coverage and discussed with the patient. Has allergies to NSAIDs and took some Tylenol earlier. Will defer other narcotic pain medicines here initially. There is no obvious evidence of abscess. X-ray report from last night reviewed without acute bony injury noted and there is no significant history of trauma. Blood work today does show slight increase in white blood cell count of 11.1. Did wish to later try a small amount of tramadol for pain. Lactate is somewhat elevated at 3.2. Given some IV fluid. CRP not elevated and ESR minimally elevated. Discussed with the patient the findings. Given the worsening white count pain and the elevated lactate in shared decision-making will discuss further observation here with the hospitalist team for improvement of symptoms. DIAGNOSIS: Left toe and foot cellulitis DISPOSITION: Hospitalist will evaluate Patient was agreeable with this plan. Past Med/Surg History Medical History Abdominal bloating Acute dyspnea Asthma Asthma, mild intermittent Non-productive cough Family History Other No pertinent family history in first degree relatives Social History Smoking Status: Never smoker Second Hand Exposure: No; Hx Alcohol Use: No Hx Substance Use: No Preferred Language: Burundian Communication Ability: Effective Visual Impairment: No Limitations Hearing Ability: Normal Physician'S Assistant Required: No Beliefs That Will Affect Care: None Current Living Situation: Parent Current Living Situation Comment: Parents live with patient current occupational status: 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[employer] Feels Safe at Home: Yes Assistive Devices: Glasses Allergies Allergies Allergy/AdvReac Type Severity Reaction Status Date / Time shellfish derived Allergy Severe Hives Verified 10/28/20 09:07 ibuprofen Allergy Intermediate Hives Verified 10/28/20 09:07 Home Meds Home Medications Medication Instructions Recorded Confirmed cholecalciferol (vitamin D3) 125 125 mcg PO DAILY 08/19/20 10/28/20 mcg (5,000 unit) tablet (Vitamin D3) epinephrine 0.3 mg/0.3 mL 0.3 mg IM Q4H PRN 08/19/20 10/28/20 injection, auto-injector (EpiPen) fluticasone propionate 110 2 puff INHALATION DAILY 08/19/20 10/28/20 mcg/actuation HFA aerosol inhaler (Flovent HFA) multivitamin 1 tab PO DAILY 08/19/20 10/28/20 Previous Rx's Medication Instructions Recorded albuterol sulfate 90 mcg/actuation 2 puff INHALATION Q4 PRN #18 g 09/28/20 aerosol inhaler Results & Data (ED) Vital Signs Vital Signs - 24 hr 09/23/21 06:29 09/23/21 07:08 09/23/21 07:43 Temperature 36.6 C Temperature Source Temporal Artery Scan Pulse Rate 86 Pulse Rate [Apical] 80 Pulse Rhythm [Apical] Regular Respiratory Rate 18 18 Respiratory Effort / Characteristics Non-Labored Respiratory Depth Normal Respiratory Pattern Regular Blood Pressure 132/84 Blood Pressure [Left Arm] 114/90 Blood Pressure Mean 100 Blood Pressure Mean [Left Arm] 98 Blood Pressure Position [Left Arm] Lying Pulse Oximetry 98 96 Oxygen Delivery Method Room Air Room Air Sepsis Recent Fever Within 48 Hours No Sepsis New/Unexplained Change in Mental Status N/A Sepsis Action Taken by Nursing No Action Required Laboratory Data Result diagrams: 09/23/21 07:20 09/23/21 07:20 Lab Results 09/23/21 09/23/21 09/23/21 Range/Units 07:20 07:20 07:20 WBC 11.17 H (4.8-10.8) K/ul RBC 5.37 (4.63-6.08) M/uL Hgb 15.9 (14.0-18.0) g/dl Hct 45.2 (40.1-51.0) % MCV 84.2 (80.0-100.0) fL MCH 29.6 (25.0-34.0) pg MCHC 35.2 (32.0-36.0) g/dL RDW Std Deviation 38.9 (36.4-46.3) fL RDW Coeff of Glenn 12.7 (11.5-14.5) % Plt Count 294 (130-400) K/uL MPV 10.0 (9.4-12.4) fL Immature Gran % (Auto) 0.5 % Neut % (Auto) 77.4 % Lymph % (Auto) 12.8 % Ramsey % (Auto) 7.6 % Eos % (Auto) 1.3 % Baso % (Auto) 0.4 % Neut # (Auto) 8.63 H (1.4-6.5) K/uL Lymph # (Auto) 1.43 (1.2-3.4) K/uL Ramsey # (Auto) 0.85 H (0.24-0.82) K/uL Eos # (Auto) 0.15 (0-0.50) K/uL Baso # (Auto) 0.05 (0-0.2) K/uL Immature Gran # (Auto) 0.06 H (0.00-0.02) K/uL ESR (0-15) mm/hr Sodium 135 L (136-145) mmol/L Potassium 3.7 (3.5-5.1) mmol/L Chloride 102 (98-107) mmol/L Carbon Dioxide 22 (21-32) mmol/L Anion Gap 11 (3-11) BUN 11 (6-23) mg/dl Creatinine 0.65 (0.6-1.4) mg/dl Est Cr Clr Drug Dosing 153.1 ml/min Est GFR ( Amer) 140.1 ml/min Est GFR (Non-Af Amer) 120.8 ml/min BUN/Creatinine Ratio 16.9 (10-20) Glucose 133 H (70-99(Fasting)) mg/dl Lactate (0.4-2.0) mmol/L Calcium 9.4 (8.5-10.1) mg/dl Total Bilirubin 0.6 (0.2-1.0) mg/dl AST 24 (13-39) U/L ALT 49 (7-52) U/L Alkaline Phosphatase 57 (34-104) U/L C-Reactive Protein < 0.50 (0-0.5) mg/dl Total Protein 7.8 (6.0-8.3) gm/dl Albumin 4.6 (3.4-5.0) gm/dl Globulin 3.2 (2.5-4.0) gm/dl Albumin/Globulin Ratio 1.4 (0.9-2) Procalcitonin < 0.05 (0-0.5) ng/ml SARS-CoV-2, RNA, NAAT (NEGATIVE) 09/23/21 09/23/21 09/23/21 Range/Units 07:20 07:20 08:20 WBC (4.8-10.8) K/ul RBC (4.63-6.08) M/uL Hgb (14.0-18.0) g/dl Hct (40.1-51.0) % MCV (80.0-100.0) fL MCH (25.0-34.0) pg MCHC (32.0-36.0) g/dL RDW Std Deviation (36.4-46.3) fL RDW Coeff of Glenn (11.5-14.5) % Plt Count (130-400) K/uL MPV (9.4-12.4) fL Immature Gran % (Auto) % Neut % (Auto) % Lymph % (Auto) % Ramsey % (Auto) % Eos % (Auto) % Baso % (Auto) % Neut # (Auto) (1.4-6.5) K/uL Lymph # (Auto) (1.2-3.4) K/uL Ramsey # (Auto) (0.24-0.82) K/uL Eos # (Auto) (0-0.50) K/uL Baso # (Auto) (0-0.2) K/uL Immature Gran # (Auto) (0.00-0.02) K/uL ESR 24 H (0-15) mm/hr Sodium (136-145) mmol/L Potassium (3.5-5.1) mmol/L Chloride (98-107) mmol/L Carbon Dioxide (21-32) mmol/L Anion Gap (3-11) BUN (6-23) mg/dl Creatinine (0.6-1.4) mg/dl Est Cr Clr Drug Dosing ml/min Est GFR ( Amer) ml/min Est GFR (Non-Af Amer) ml/min BUN/Creatinine Ratio (10-20) Glucose (70-99(Fasting)) mg/dl Lactate 3.2 H* (0.4-2.0) mmol/L Calcium (8.5-10.1) mg/dl Total Bilirubin (0.2-1.0) mg/dl AST (13-39) U/L ALT (7-52) U/L Alkaline Phosphatase (34-104) U/L C-Reactive Protein (0-0.5) mg/dl Total Protein (6.0-8.3) gm/dl Albumin (3.4-5.0) gm/dl Globulin (2.5-4.0) gm/dl Albumin/Globulin Ratio (0.9-2) Procalcitonin (0-0.5) ng/ml SARS-CoV-2, RNA, NAAT NEGATIVE (NEGATIVE) Administered Medications Discontinued Medications Doxycycline Hyclate 100 mg/ (Dextrose) 110 mls @ 50 mls/hr IV NOW STA Stop: 09/23/21 09:19 Last Infusion: 09/23/21 09:51 Dose: 0 mls/hr Documented by: [id number] Admin: 09/23/21 07:37 Dose: 50 mls/hr Documented by: [id number] Sodium Chloride (Nss 1000ml) 1,000 mls @ 999 mls/hr IV .Q1H1M ONE Stop: 09/23/21 09:12 Last Admin: 09/23/21 08:18 Dose: 999 mls/hr Documented by: [id number] Tramadol HCl (Tramadol Hcl 50 Mg Tablet) 50 mg PO NOW STA Stop: 09/23/21 07:52 Last Admin: 09/23/21 08:09 Dose: Not Given Documented by: [id number] Tramadol HCl (Tramadol Hcl 50 Mg Tablet) 25 mg PO NOW STA Stop: 09/23/21 07:58 Last Admin: 09/23/21 07:59 Dose: 25 mg Documented by: [id number] Discharge Plan Visit Data Chief Complaint: Foot Injury/Pain Stated Complaint: LEFT FOOT PAIN ED Provider: Saturnino Matos Discharge Problem: Cellulitis of fourth toe, left, Cellulitis of foot, left Patient Disposition: Being Evaluated by Hospitalist
[2021-09-23 07:46] LABS: Basophils # (auto) 0.05 K/uL (0-0.2); Basophils % (auto) 0.4 %; Eosinophils # (auto) 0.15 K/uL (0-0.50); Eosinophils % (auto) 1.3 %; Hematocrit (blood only) 45.2 % (40.1-51.0); Hemoglobin 15.9 g/dl (14.0-18.0); Immature Granulocytes # (auto) 0.06 K/uL (0.00-0.02); Immature Granulocytes % (auto) 0.5 %; Lymphocytes # (auto) 1.43 K/uL (1.2-3.4); Lymphocytes % (auto) 12.8 %; Mean Corpuscular Hemoglobin 29.6 pg (25.0-34.0); Mean Corpuscular Hgb Conc 35.2 g/dL (32.0-36.0); Mean Corpuscular Volume 84.2 fL (80.0-100.0); Monocytes # (auto) 0.85 K/uL (0.24-0.82); Monocytes % (auto) 7.6 %; Neutrophils # (auto) 8.63 K/uL (1.4-6.5); Neutrophils % (auto) 77.4 %; Platelet Count 294 K/uL (130-400); RDW Coefficient of Variation 12.7 % (11.5-14.5); RDW Standard Deviation 38.9 fL (36.4-46.3); Red Blood Count 5.37 M/uL (4.63-6.08); White Blood Count 11.17 K/ul (4.8-10.8)
[2021-09-23] MEDS ORDERED: traMADol HCL 50 MG TABLET PO STA ×2 (07:51→07:57)
[2021-09-23 08:02] LABS: Alanine Aminotransferase 49 U/L (7-52); Albumin Globulin Ratio 1.4 (0.9-2); Albumin Level 4.6 gm/dl (3.4-5.0); Alkaline Phosphatase 57 U/L (34-104); Anion Gap 11 (3-11); Aspartate Aminotransferase 24 U/L (13-39); BUN Creatinine Ratio 16.9 (10-20); Bilirubin,Total 0.6 mg/dl (0.2-1.0); Blood Urea Nitrogen 11 mg/dl (6-23); C Reactive Protein < 0.50 mg/dl (0-0.5); Calcium 9.4 mg/dl (8.5-10.1); Carbon Dioxide 22 mmol/L (21-32); Chloride 102 mmol/L (98-107); Creatinine Clr Calc Pharmacy 153.1 ml/min; Est GFR (African American) 140.1 ml/min; Est GFR (Non-African American) 120.8 ml/min; Globulin 3.2 gm/dl (2.5-4.0); Glucose 133 mg/dl (70-99(Fasting)); Potassium 3.7 mmol/L (3.5-5.1); Sodium 135 mmol/L (136-145); Total Protein 7.8 gm/dl (6.0-8.3)
[2021-09-23] MEDS ORDERED: SODIUM CHLORIDE 0.9% 1000ML 1,000 ML IV ONE (08:12)
--- NOTE | 2021-09-23 10:37 | History & Physical Report ---
Date of Service September 23, 2021 Assessment & Plan (1) Cellulitis of foot, left: Plan: #. Cellulitis left foot #. Increased blood lactic acid level Was here at the ER 09/22 evening with left fourth toe cellulitis. Received a dose of Rocephin 09/22 evening, a dose of Keflex 09/23 AM Presented again 09/23 AM with increasing pain/erythema/chills overnight. Admitting WBC elevated at 11.1 7K, admitting vitals afebrile and fairly WNL. Admitting lactate elevated at 3.2 Patient started on doxycycline in the ED, received tramadol with improvement in pain, on Tylenol as needed for pain. will add rocephin Continue with doxycycline, continue with Tylenol, patient would not like to try Percocet or tramadol at the moment. Patient does have allergy to ibuprofen in the past. Follow-up admitting blood culture. Patient is a status post IV fluid resuscitation, lactic trending down. Trend lactate until normal. #. Other chronic medical conditions: Asthma Continue with/resume home meds as and when appropriate. #. DVT prophylaxis: Can add Lovenox if he stays more than 48 to 72 hours #. Full code History of Present Illness Chief Complaint: Left 4 toe cellulitis Primary Care Provider: Migue Moody MD 41-year-old male with PMH of asthma presented to our ED 09/23 due to increasing pain in his left fourth toe with some chills overnight. The patient was here in the ED last evening due to left 4th toe redness/swelling/tenderness that started yesterday morning. Per patient, he went to work, was having pain whole day and limping all day, went to home and found that his pain has increased and erythema has expanded in linear fashion to involve up to anterior of his ankle and hence presented to the ED yesterday evening when he was given Rocephin and discharged on Keflex and Bactrim. He could not sleep all night due to pain and had some chills. Upon waking up today morning, he had severe pain 9/10 and could not walk and hence presented to the ED again. Patient reports improvement in his pain after tramadol in the ED. Patient reports cellulitis in the same left fourth toe almost 4 years back improved with oral antibiotic, upon examination no skin breach/fungus noticed/nail abnormality noted. Denies fever/dizziness/headache/chest pain/palpitations/belly pain/acute changes in bowel or bladder habits. Denies smoking tobacco/drinking alcohol/using recreational drugs or marijuana. Full code Works as a medical professional. Allergies Allergy/AdvReac Type Severity Reaction Status Date / Time shellfish derived Allergy Severe Hives Verified 10/28/20 09:07 ibuprofen Allergy Intermediate Hives Verified 10/28/20 09:07 Home Medications Medication Instructions Recorded Confirmed Type cholecalciferol (vitamin D3) 125 125 mcg PO DAILY 08/19/20 10/28/20 History mcg (5,000 unit) tablet (Vitamin D3) epinephrine 0.3 mg/0.3 mL 0.3 mg IM Q4H PRN 08/19/20 10/28/20 History injection, auto-injector (EpiPen) fluticasone propionate 110 2 puff INHALATION DAILY 08/19/20 10/28/20 History mcg/actuation HFA aerosol inhaler (Flovent HFA) multivitamin 1 tab PO DAILY 08/19/20 10/28/20 History albuterol sulfate 90 mcg/actuation 2 puff INHALATION Q4 PRN #18 g 09/28/20 10/28/20 Rx aerosol inhaler Past Med/Surg History Medical History Abdominal bloating Acute dyspnea Asthma Asthma, mild intermittent Non-productive cough Family History Other No pertinent family history in first degree relatives Social History Smoking Status: Never smoker Second Hand Exposure: No; Hx Alcohol Use: No Hx Substance Use: No Preferred Language: Luxembourger Communication Ability: Effective Visual Impairment: No Limitations Hearing Ability: Normal Book Binder Required: No Beliefs That Will Affect Care: None Current Living Situation: Parent Current Living Situation Comment: Parents live with patient current occupational status: 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 Physical Exam Physical Exam: GENERAL: Alert and oriented x3. NAD, on RA. HEENT: No pallor, no icterus. Pupils equal, round and reactive to light. Oral mucosa moist. NECK: No JVD, no neck masses. HEART: S1 and S2 heard. Regular rate and rhythm. No murmur, no gallop. RESPIRATORY SYSTEM: Normal AP diameter. No accessory muscle use. No wheezing, no crackles. ABDOMEN: Soft, bowel sounds present, nontender, no distention. CENTRAL NERVOUS SYSTEM: No facial droop. Speech is clear. Obeys simple commands. Moves extremities. EXTREMITIES: No edema. Lt 4th toe swelling/tenderness w/ erythema extending upto dorsum of mid-foot in linear fashion. Results & Data Results & Data ([facility]) Vital Signs (Past 12 Hours) Vital Signs Temp Pulse Pulse Resp BP BP Pulse Ox 09/23/21 09:36 86 18 123/78 98 09/23/21 09:00 84 18 126/94 98 09/23/21 07:43 80 09/23/21 07:08 18 114/90 96 09/23/21 06:29 36.6 C 86 18 132/84 98 Code Status & VTE Plan VTE Prophylaxis Plan VTE Prophylaxis will be ordered: Yes
[2021-09-23] MEDS ORDERED: POLYETHYLENE (MIRALAX) 17 GM PACK PO PRN (11:05)
[2021-09-23] MEDS ORDERED: ONDANSETRON INJ 2 MG/ML 2 ML VIAL IV PRN (11:05)
[2021-09-23] MEDS ORDERED: ALBUTEROL HFA 8 GM INHALER INH PRN (11:17)
[2021-09-23] MEDS ORDERED: SODIUM CHLORIDE 0.9% 1000ML 1,000 ML IV SCH (11:30)
[2021-09-23] MEDS ORDERED: ENOXAPARIN INJ 40 MG/0.4 ML SYR SQ SCH (12:00)
[2021-09-23] MEDS: ADVANCED PROBIOTIC 1250 MG CAPSULE PO SCH (13:29)
[2021-09-23] MEDS: ceFAZolin 2000MG 2,000 MG/15 ML SYR IV SCH ×2 (14:02→21:05)
[2021-09-23] MEDS: ACETAMINOPHEN 325 MG TAB PO PRN ×2 (14:09→20:39)
[2021-09-23] MEDS: DOXYCYCLINE HYCLATE 100 MG in DEXTROSE 5% 100 ML IV SCH (18:17)
[2021-09-23] MEDS ORDERED: cefTRIAXone SODIUM 2,000 MG in DEXTROSE 5% 50 ML IV SCH (23:00)
[2021-09-24] MEDS: ceFAZolin 2000MG 2,000 MG/15 ML SYR IV SCH ×3 (05:59→20:51)
[2021-09-24] MEDS: DOXYCYCLINE HYCLATE 100 MG in DEXTROSE 5% 100 ML IV SCH ×2 (06:00→18:23)
[2021-09-24 08:31] LABS: Basophils # (auto) 0.04 K/uL (0-0.2); Basophils % (auto) 0.5 %; Eosinophils # (auto) 0.23 K/uL (0-0.50); Eosinophils % (auto) 2.9 %; Hematocrit (blood only) 43.8 % (40.1-51.0); Immature Granulocytes # (auto) 0.04 K/uL (0.00-0.02); Immature Granulocytes % (auto) 0.5 %; Lymphocytes # (auto) 1.82 K/uL (1.2-3.4); Lymphocytes % (auto) 22.6 %; Mean Corpuscular Hemoglobin 29.4 pg (25.0-34.0); Mean Corpuscular Hgb Conc 34.2 g/dL (32.0-36.0); Mean Corpuscular Volume 85.7 fL (80.0-100.0); Mean Platelet Volume 9.9 fL (9.4-12.4); Monocytes # (auto) 0.63 K/uL (0.24-0.82); Monocytes % (auto) 7.8 %; Neutrophils # (auto) 5.29 K/uL (1.4-6.5); Neutrophils % (auto) 65.7 %; Platelet Count 288 K/uL (130-400); RDW Coefficient of Variation 12.9 % (11.5-14.5); Red Blood Count 5.11 M/uL (4.63-6.08); White Blood Count 8.05 K/ul (4.8-10.8)
[2021-09-24 09:03] LABS: BUN Creatinine Ratio 14.5 (10-20); C Reactive Protein 1.1 mg/dl (0-0.5); Calcium 9.1 mg/dl (8.5-10.1); Creatinine Clr Calc Pharmacy 130.9 ml/min; Est GFR (African American) 131.3 ml/min; Est GFR (Non-African American) 113.3 ml/min; Potassium 3.8 mmol/L (3.5-5.1)
[2021-09-24] MEDS: ACETAMINOPHEN 325 MG TAB PO PRN (09:07)
[2021-09-24] MEDS: MULTIVITAMIN TAB PO SCH (09:07)
[2021-09-24] MEDS: CHOLECALCIFEROL 5,000 UNITS 125 MCG TAB PO SCH (09:07)
[2021-09-24] MEDS: ADVANCED PROBIOTIC 1250 MG CAPSULE PO SCH (09:07)
[2021-09-24] MEDS: FLUTICASONE HFA 110MCG INHALER INH SCH (09:07)
--- NOTE | 2021-09-24 16:23 | Hospitalist Progress Note ---
Date of Service September 24, 2021 Assessment & Plan (1) Cellulitis of foot, left: Plan: #. Cellulitis left foot- Does not meet SIRS or sepsis criteria. Cellulitis seems improving on iv ancef/doxy. Seen by podiatry who did not recommend any surgical intervention. Xray and labs reviewed. Uric acid mildly elevated at 8 but low suspicion of gout at this point as improving on antibiotics. Blood clx negative - Continue ancef/doxy, monitor cellulitis, repeat labs in am #. Lactic acidemia- resolved. #. Asthma- no exacerbation. DVT ppx- SCDs. Ambulation. Dispo- Continue iv antibiotics for 24 more hours. If continues to improve, will likely switch to oral ABx tomorrow and discharge home. Admission and Anticipated Discharge Date Admission Date: September 23, 2021 Subjective Left foot cellulitis improving. Still has tenderness and swelling of left toe. No fever or chills. No N/V. No other issues. Physical Exam Physical Exam: General: Lying comfortably in bed, not in distress, on room air HEENT: EOMI, PASQU[place], MMM Chest: Clear breath sounds bilaterally, no wheezes or crackles CVS: Regular rate and rhythm, normal heart sounds, no murmur Abdomen: Soft, non tender, not distended, normal bowel sounds Neuro: Awake, alert, oriented, conversing well, non focal Extremities: Left 4 toe acid tender, erythematous and swollen- cellulitis on dorsum of left foot seems receding compared to the prior on his phone. Results & Data Results & Data ([facility]) Vital Signs (Past 12 Hours) Vital Signs Temp Pulse Resp BP Pulse Ox 09/24/21 16:07 36.5 C 77 18 99/62 L 95 09/24/21 09:00 36.8 C 82 18 107/70 99 Laboratory Results Short CBC 09/24/21 Range/Units 08:19 WBC 8.05 (4.8-10.8) K/ul Hgb 15.0 (14.0-18.0) g/dl Hct 43.8 (40.1-51.0) % Plt Count 288 (130-400) K/uL BMP 09/24/21 08:19 Sodium 136 Potassium 3.8 Chloride 107 Carbon Dioxide 20 L BUN 11 Creatinine 0.76 Glucose 99 Calcium 9.1 Medications Administered Current Inpatient Medications Acetaminophen (Acetaminophen 325 Mg Tab) 650 mg PO Q4H PRN PRN Reason: pain/fever Stop: 10/23/21 11:04 Last Admin: 09/24/21 09:07 Dose: 650 mg Documented by: Albuterol (Albuterol Hfa 8 Gm Inhaler) 2 puffs INH Q4 PRN PRN Reason: Shortness Of Breath Or Wheezing Stop: 10/23/21 11:16 Fluticasone Propionate (Fluticasone Hfa 110mcg Inhaler) 2 puffs INH DAILY STEFANY Stop: 10/24/21 08:59 Last Admin: 09/24/21 09:07 Dose: 2 puffs Documented by: Doxycycline Hyclate 100 mg/ (Dextrose) 110 mls @ 50 mls/hr IV Q12H STEFANY Stop: 09/30/21 18:59 Last Infusion: 09/24/21 08:33 Dose: Infused Documented by: Cefazolin Sodium (Ancef 2000mg) 2,000 mg in 15 mls @ 3.75 mls/min IV Q8H STEFANY Stop: 09/30/21 12:59 Last Admin: 09/24/21 12:39 Dose: 3.75 mls/min Documented by: Lactobacillus Acidophilus (Advanced Probiotic 1250 Mg Capsule) 2 cap PO DAILY STEFANY Stop: 10/23/21 10:44 Last Admin: 09/24/21 09:07 Dose: 2 cap Documented by: Multivitamins (Multivitamin Tab) 1 tab PO DAILY STEFANY Stop: 10/24/21 08:59 Last Admin: 09/24/21 09:07 Dose: 1 tab Documented by: Ondansetron HCl (Ondansetron Inj 2 Mg/Ml 2 Ml Vial) 4 mg IV Q6H PRN PRN Reason: Nausea Stop: 10/23/21 11:04 Polyethylene Glycol (Polyethylene (Miralax) 17 Gm Pack) 17 gm PO DAILY PRN PRN Reason: Constipation Stop: 10/23/21 11:04 Vitamin D (Cholecalciferol 5,000 Units 125 Mcg Tab) 5,000 units PO DAILY STEFANY Stop: 10/24/21 08:59 Last Admin: 09/24/21 09:07 Dose: 5,000 units Documented by:
--- NOTE | 2021-09-24 20:50 | Orthopedic Consultation ---
Date of Consultation September 24, 2021 Assessment & Plan (1) Cellulitis of foot, left: Patient seen, evaluated, and treated. At this time Patient appears to be responding to IV abx therapy with WBC trending downward as well as symptoms of pain and swelling. We did discuss curious case of cellulitis as no break in skin is realized. Patient did hypothesize a recent elongated nail may have contributed to scenario as well as tight fitting shoes. With the exception of the ascending erythema line over dorsum of foot and mild elevated white count, clinically this resembles more Gout. Uric acid elevated levels were noted and flare up can not be ruled out. Will continue to follow while in house. Thank you for allowing me to participate in Dr. Chang's management. (2) Cellulitis of fourth toe, left: History of Present Illness Attending Physician: Remberto Canela MD History of Present Illness Patient is a pleasant, 41 year old male, who is seen at bedside. 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 Patient recognized signs and symptoms of cellulitis. Patient took cephalexin while at home and was given dose ceftriaxone but symptoms did not subside. This brought him to [facility] [facility] ED where he was admitted for IV abx treatment. He does not similar episode 10 years ago that resolved with oral Abx. He notes no recent trauma. He denies recent break in skin or ingrown nails to left foot. Allergies Allergy/AdvReac Type Severity Reaction Status Date / Time shellfish derived Allergy Severe Hives Verified 10/28/20 09:07 ibuprofen Allergy Intermediate Hives Verified 10/28/20 09:07 naproxen Allergy Hives Verified 09/23/21 11:46 Home Medications Medication Instructions Recorded Confirmed Type cholecalciferol (vitamin D3) 125 125 mcg PO DAILY 08/19/20 10/28/20 History mcg (5,000 unit) tablet (Vitamin D3) epinephrine 0.3 mg/0.3 mL 0.3 mg IM Q4H PRN 08/19/20 10/28/20 History injection, auto-injector (EpiPen) fluticasone propionate 110 2 puff INHALATION DAILY 08/19/20 10/28/20 History mcg/actuation HFA aerosol inhaler (Flovent HFA) multivitamin 1 tab PO DAILY 08/19/20 10/28/20 History albuterol sulfate 90 mcg/actuation 2 puff INHALATION Q4 PRN #18 g 09/28/20 10/28/20 Rx aerosol inhaler cephalexin 500 mg capsule 500 mg PO QID 10 Days #40 cap 09/25/21 Rx doxycycline hyclate 100 mg tablet 100 mg PO BID 10 Days #20 tab 09/25/21 Rx Patient History Medical History Abdominal bloating Acute dyspnea Asthma Asthma, mild intermittent Non-productive cough Family History Other No pertinent family history in first degree relatives Social History Smoking Status: Never smoker Second Hand Exposure: No; Hx Alcohol Use: No Hx Substance Use: No Preferred Language: Swiss Communication Ability: Effective Visual Impairment: No Limitations Hearing Ability: Normal Cold Press Loader Required: No Beliefs That Will Affect Care: None Current Living Situation: Alone Current Living Situation Comment: Parents live with patient current occupational status: 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 Erythema of the left fourth toe extending over the dorsum of foot to the ankle. No crepitus. Neurologic: No focal deficits. No aphasia. No facial droop or slurred speech. Normal strength and tone in the left foot limited due to pain in the left fourth toe movement here. Sensation to gross touch normal in the left foot Ambulatory. Psychiatric: A+Ox3, euthymic affect Results & Data ([facility]) Vital Signs (Past 12 Hours) Vital Signs Temp Pulse Resp BP Pulse Ox 09/24/21 16:07 36.5 C 77 18 99/62 L 95 09/24/21 09:00 36.8 C 82 18 107/70 99
[2021-09-24] MEDS ORDERED: cefTRIAXone SODIUM 2,000 MG in DEXTROSE 5% 50 ML IV SCH (23:00)
[2021-09-25] MEDS: ACETAMINOPHEN 325 MG TAB PO PRN ×2 (00:15→08:58)
[2021-09-25] MEDS: ceFAZolin 2000MG 2,000 MG/15 ML SYR IV SCH (05:55)
[2021-09-25 06:00] LABS: Basophils # (auto) 0.06 K/uL (0-0.2); Basophils % (auto) 0.7 %; Eosinophils # (auto) 0.29 K/uL (0-0.50); Eosinophils % (auto) 3.3 %; Hematocrit (blood only) 42.6 % (40.1-51.0); Hemoglobin 14.6 g/dl (14.0-18.0); Immature Granulocytes # (auto) 0.04 K/uL (0.00-0.02); Immature Granulocytes % (auto) 0.5 %; Lymphocytes # (auto) 2.22 K/uL (1.2-3.4); Lymphocytes % (auto) 25.4 %; Mean Corpuscular Hemoglobin 29.8 pg (25.0-34.0); Mean Corpuscular Hgb Conc 34.3 g/dL (32.0-36.0); Mean Corpuscular Volume 86.9 fL (80.0-100.0); Monocytes # (auto) 0.82 K/uL (0.24-0.82); Monocytes % (auto) 9.4 %; Neutrophils # (auto) 5.32 K/uL (1.4-6.5); Neutrophils % (auto) 60.7 %; Platelet Count 274 K/uL (130-400); RDW Coefficient of Variation 12.7 % (11.5-14.5); RDW Standard Deviation 39.8 fL (36.4-46.3); White Blood Count 8.75 K/ul (4.8-10.8)
[2021-09-25 06:32] LABS: BUN Creatinine Ratio 17.3 (10-20); C Reactive Protein 0.71 mg/dl (0-0.5); Calcium 8.9 mg/dl (8.5-10.1); Creatinine Clr Calc Pharmacy 132.7 ml/min; Est GFR (African American) 132.1 ml/min; Est GFR (Non-African American) 113.9 ml/min; Potassium 3.8 mmol/L (3.5-5.1)
[2021-09-25] MEDS: DOXYCYCLINE HYCLATE 100 MG in DEXTROSE 5% 100 ML IV SCH (06:32)
[2021-09-25] MEDS: FLUTICASONE HFA 110MCG INHALER INH SCH (08:57)
[2021-09-25] MEDS: MULTIVITAMIN TAB PO SCH (08:58)
[2021-09-25] MEDS: CHOLECALCIFEROL 5,000 UNITS 125 MCG TAB PO SCH (08:58)
[2021-09-25] MEDS: ADVANCED PROBIOTIC 1250 MG CAPSULE PO SCH (08:58)
[2021-09-25] MEDS ORDERED: cephALEXin 500 MG CAP PO SCH (13:00)
--- NOTE | 2021-09-25 16:41 | Discharge Summary ---
Date of Service September 25, 2021 Admission HPI Per Admitting Provider 41-year-old male with PMH of asthma presented to our ED 09/23 due to increasing pain in his left fourth toe with some chills overnight. The patient was here in the ED last evening due to left 4th toe redness/swelling/tenderness that started yesterday morning. Per patient, he went to work, was having pain whole day and limping all day, went to home and found that his pain has increased and erythema has expanded in linear fashion to involve up to anterior of his ankle and hence presented to the ED yesterday evening when he was given Rocephin and discharged on Keflex and Bactrim. He could not sleep all night due to pain and had some chills. Upon waking up today morning, he had severe pain 9/10 and could not walk and hence presented to the ED again. Patient reports improvement in his pain after tramadol in the ED. Patient reports cellulitis in the same left fourth toe almost 4 years back improved with oral antibiotic, upon examination no skin breach/fungus noticed/nail abnormality noted. Denies fever/dizziness/headache/chest pain/palpitations/belly pain/acute changes in bowel or bladder habits. Denies smoking tobacco/drinking alcohol/using recreational drugs or marijuana. Full code Works as a medical professional. Admission Exam Per Admitting Provider GENERAL: Alert and oriented x3. NAD, on RA. HEENT: No pallor, no icterus. Pupils equal, round and reactive to light. Oral mucosa moist. NECK: No JVD, no neck masses. HEART: S1 and S2 heard. Regular rate and rhythm. No murmur, no gallop. RESPIRATORY SYSTEM: Normal AP diameter. No accessory muscle use. No wheezing, no crackles. ABDOMEN: Soft, bowel sounds present, nontender, no distention. CENTRAL NERVOUS SYSTEM: No facial droop. Speech is clear. Obeys simple commands. Moves extremities. EXTREMITIES: No edema. Lt 4th toe swelling/tenderness w/ erythema extending upto dorsum of mid-foot in linear fashion. Principal Diagnosis Cellulitis of left foot and left 4th toe Discharge Exam General: Sitting comfortably in bed, not in distress, on room air HEENT: EOMI, [place], MMM Chest: Clear breath sounds bilaterally, no wheezes or crackles CVS: Regular rate and rhythm, normal heart sounds, no murmur Abdomen: Soft, non tender, not distended, normal bowel sounds Neuro: Awake, alert, oriented, conversing well, non focal Extremities: Left 4 toe back tender pulp drier, erythematous and swollen but improved from admission, cellulitis on dorsum of left foot resolved. Discharge Data Allergies Allergy/AdvReac Type Severity Reaction Status Date / Time shellfish derived Allergy Severe Hives Verified 10/28/20 09:07 ibuprofen Allergy Intermediate Hives Verified 10/28/20 09:07 naproxen Allergy Hives Verified 09/23/21 11:46 Consultations 09/23/21 08:34 ED Decision to Admit Stat 09/24/21 10:49 Consult Podiatry Routine Ordered Studies Laboratory Results WBC 8.75 K/ul (4.8-10.8) 09/25/21 05:31 RBC 4.90 M/uL (4.63-6.08) 09/25/21 05:31 Hgb 14.6 g/dl (14.0-18.0) 09/25/21 05:31 Hct 42.6 % (40.1-51.0) 09/25/21 05:31 MCV 86.9 fL (80.0-100.0) 09/25/21 05:31 MCH 29.8 pg (25.0-34.0) 09/25/21 05:31 MCHC 34.3 g/dL (32.0-36.0) 09/25/21 05:31 RDW Std Deviation 39.8 fL (36.4-46.3) 09/25/21 05:31 RDW Coeff of Glenn 12.7 % (11.5-14.5) 09/25/21 05:31 Plt Count 274 K/uL (130-400) 09/25/21 05:31 MPV 10.0 fL (9.4-12.4) 09/25/21 05:31 Immature Gran % (Auto) 0.5 % 09/25/21 05:31 Neut % (Auto) 60.7 % 09/25/21 05:31 Lymph % (Auto) 25.4 % 09/25/21 05:31 [place] % (Auto) 9.4 % 09/25/21 05:31 Eos % (Auto) 3.3 % 09/25/21 05:31 Baso % (Auto) 0.7 % 09/25/21 05:31 Neut # (Auto) 5.32 K/uL (1.4-6.5) 09/25/21 05:31 Lymph # (Auto) 2.22 K/uL (1.2-3.4) 09/25/21 05:31 [place] # (Auto) 0.82 K/uL (0.24-0.82) 09/25/21 05:31 Eos # (Auto) 0.29 K/uL (0-0.50) 09/25/21 05:31 Baso # (Auto) 0.06 K/uL (0-0.2) 09/25/21 05:31 Immature Gran # (Auto) 0.04 K/uL (0.00-0.02) H 09/25/21 05:31 ESR 21 mm/hr (0-15) H 09/25/21 05:31 Sodium 137 mmol/L (136-145) 09/25/21 05:31 Potassium 3.8 mmol/L (3.5-5.1) 09/25/21 05:31 Chloride 104 mmol/L (98-107) 09/25/21 05:31 Carbon Dioxide 23 mmol/L (21-32) 09/25/21 05:31 Anion Gap 10 (3-11) 09/25/21 05:31 BUN 13 mg/dl (6-23) 09/25/21 05:31 Creatinine 0.75 mg/dl (0.6-1.4) 09/25/21 05:31 Est Cr Clr Drug Dosing 132.7 ml/min 09/25/21 05:31 Est GFR ( Amer) 132.1 ml/min 09/25/21 05:31 Est GFR (Non-Af Amer) 113.9 ml/min 09/25/21 05:31 BUN/Creatinine Ratio 17.3 (10-20) 09/25/21 05:31 Glucose 95 mg/dl (70-99(Fasting)) 09/25/21 05:31 Lactate 1.0 mmol/L (0.4-2.0) 09/24/21 08:23 Uric Acid 8.0 mg/dl (2.6-7.2) H 09/24/21 08:19 Calcium 8.9 mg/dl (8.5-10.1) 09/25/21 05:31 Total Bilirubin 0.6 mg/dl (0.2-1.0) 09/23/21 07:20 AST 24 U/L (13-39) 09/23/21 07:20 ALT 49 U/L (7-52) 09/23/21 07:20 Alkaline Phosphatase 57 U/L (34-104) 09/23/21 07:20 C-Reactive Protein 0.71 mg/dl (0-0.5) H 09/25/21 05:31 Total Protein 7.8 gm/dl (6.0-8.3) 09/23/21 07:20 Albumin 4.6 gm/dl (3.4-5.0) 09/23/21 07:20 Globulin 3.2 gm/dl (2.5-4.0) 09/23/21 07:20 Albumin/Globulin Ratio 1.4 (0.9-2) 09/23/21 07:20 Procalcitonin < 0.05 ng/ml (0-0.5) 09/23/21 07:20 SARS-CoV-2, RNA, NAAT NEGATIVE (NEGATIVE) 09/23/21 08:20 Hospital Course (1) Cellulitis of foot, left: #. Cellulitis left 4th toe and left foot- likely traumatic. Reports he clipped his nails on Monday night and when he woke up on Monday morning, he already had the cellulitis although there was no overt trauma noted. He did not meet SIRS or sepsis criteria. Started on iv ancef/doxy with improvement in cellulitis. Seen by podiatry who did not recommend any surgical intervention. Xray and labs reviewed. Uric acid mildly elevated at 8 but low suspicion of gout at this point as improving on antibiotics. Blood clx negative. CRP, ESR continues to improve with antibiotics. - S/p ancef/doxy with improvement-> changed to keflex/doxy to complete antibiotic course-> will require longer course if not completely resolved with current antibiotic course. #. Lactic acidemia- resolved. #. Asthma- no exacerbation. Total Time Total Time Spent Total Time Spent (In Minutes): 35 Discharge Plan Discharge Items Patient Disposition: Home - Self-Care Reason For Visit: LLE CELLULITIS Discharge Diagnosis: Left foot/toe cellulitis Activity: Resume your previous activity Non-emergency contact: Primary Care Provider Call non-emergency contact if: you have any medication questions, your symptoms worsen, your pain is not controlled and you have a fever Follow-up/Referrals: Migue Moody MD [Primary Care Provider] - Diet: Regular Addtl Attending Provider Instructions: Continue keflex/doxcycline to complete the 7-10 day antibiotic course. If it does not resolve completely, might need longer antibiotic course or further evaluation. If cellulitis worsens or fever, chills, please come to the emergency for further evaluation and iv antibiotics. Pending Studies at Discharge: No Stand-Alone Forms: My Odimax, Smoking Cessation Medications and DC Order Prescriptions: New cephalexin 500 mg Capsule 500 mg PO QID 10 Days Qty: 40 RF: 0 doxycycline hyclate 100 mg tablet 100 mg PO BID 10 Days Qty: 20 RF: 0 Continued albuterol sulfate 90 mcg/actuation HFA aerosol inhaler 2 puff INHALATION Q4 PRN (Reason: Shortness Of Breath Or Wheezing) Qty: 18 RF: 3 multivitamin Tablet 1 tab PO DAILY RF: 0 epinephrine [EpiPen] 0.3 mg/0.3 mL Auto-Injector 0.3 mg IM Q4H PRN (Reason: Allergic Reaction) RF: 0 fluticasone propionate [Flovent HFA] 110 mcg/actuation HFA aerosol inhaler 2 puff INHALATION DAILY RF: 0 cholecalciferol (vitamin D3) [Vitamin D3] 125 mcg (5,000 unit) Tablet 125 mcg PO DAILY RF: 0 Discharge Orders: Discharge Order (Routine); Ordered 09/25/21 Ordered By: Remberto Reeves/Other Patient Handouts: ED Cellulitis Admission Data Admit Date/Time: 09/24/21 17:55 Attending Provider: Remberto Canela Admit Provider: Ermias Livingston Primary Care Provider: Migue Moody Other Providers: Ermias Livingston ; Eric Doe Other Interventions: Discharge Summary Assessment (RN) Last Done: 09/25/21 11:59
== END 2021-09-25 13:54 | disposition home or self-care (01) | DRG 603 ==
LOC: ED 06:27 → EDINP 06:27 → SUATTDRO 08:56 → 3E 11:13